=== PATIENT | female | born 1970 | race Hispanic/Latino ===

== ENCOUNTER 2024-06-22 20:25 | Emergency (ER) | payer BC ==
--- OUTSIDE RECORDS SUMMARY | 2024-06-22 20:32 | XMS REPORT | Continuity of Care Document ---
Author Name Unknown Address [address] [facility] [place] [address] Organization [facility] [place] Address [address] 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 Name Role Phone Pcp, Patient Does Not Have A Primary Care Physic aracely Chanelle Ortiz MD Attending Clinician [phone] CHANELLE ORTIZ Attending Clinician UnavailABELINO Chase Attending Clinician Unavailable Abelino Enciso PA-C Attending Clinician [phone] Doctor Unassigned, [place] Attending Clinician U WEN Rivero Attending Clinician Unavailable MARGARITA TOLLIVER Attending Clinician UnavailJADON Mayberry Attending Clinician Unavailable Jadon Quintero Attending Clinician [phone] Jose Carlos Melo Attending Clinician [phone] JOSE CARLOS BENAVIDES Attending Clinician Unavailable EBEN MAHER Attending Clinician Unavailable CHANELLE ORTIZ Admitting Clinician UnavailJADON Davalos Admitting Clinician Unavailable JOSE CARLOS BENAVIDES Admitting Clinician Unavailable Payers Payer Name Policy Type Policy Number Effective Date Expirati on Date Source [employer] [id number] 2022 00:00:00 Problems Condition Name Condition Details Condition Category Status Onset Date Resolution Date Last Treatment Date Treating Clinician Comments Source No known active problems No known active problems Disease [facility] Allergies, Adverse Reactions, Alerts Allergy Name Allergy Type Status Severity Reaction(s) Onset Date Inactive Date Treating Clinician Comments Source Adhesive Bandages , (Not Checked) Propensi ty to adverse reaction to drug Active 3-14 00:00: 00 Stuart Gutierrez Adhesive Bandages Propensi ty to adverse reaction to drug Active 9-15 00:00: 00 Stuart Gutierrez SILICONE S DRUG INGREDI Active High Hives 1-09 00:00: [address] [facility] Silicone s Drug Allergy Active Rash 03-05 00:00: [address] [facility] NO KNOWN ALLERGIE S Drug Class Active Univers [facility] Social History Social Habit Start Date Stop Date Quantity Comments Source [facility]2 (event) 2021-12-25 00:00:00 2022-01-04 18:04:[address] [facility] Sex Assigned At 1970 00:00:00 1970 00:00:[address] [facility] Smoking Status Start Date Stop Date Source Tobacco smoking consumption unknown [facility] Medications Ordered Medication Name Filled Medication Name Start Date Stop Date Current Medication? Ordering Clinician Indication Dosage Frequency Signature (SIG) Comments Components Source scopolamine 1 mg over 3 days transdermal patch - 00:00: 00 Yes 1mg over 3 days Stuart Gutierrez butalbital- acetaminoph en-caffeine 50 mg-300 mg-40 mg capsule - 00:00: 00 Yes 12mg Stuart Gutierrez methocarbam ol 750 mg tablet - 00:00: 00 Yes 2mg Stuart Gutierrez tizanidine 4 mg tablet - 00:00: 00 Yes 1mg Stuart Gutierrez losartan 100 mg tablet 2- 00:00: 00 Yes 1mg Stuart Gutierrez levothyroxi ne 75 mcg tablet - 00:00: 00 Yes 1mcg Stuart Gutierrez gabapentin 300 mg capsule 2-20 00:00: 00 Yes 1mg Stuart Gutierrez methocarbam ol 750 mg tablet 1-03 00:00: 00 Yes 2mg Stuart Gutierrez tizanidine 4 mg tablet 2023-02-19 00:00: 00 Yes 1mg Stuart Gutierrez ondansetron 4 mg disintegrat ing tablet 2023-02-18 00:00: 00 Yes 1mg Stuart Gutierrez methocarbam ol 750 mg tablet 2023-02-15 00:00: 00 Yes 2mg Stuart Gutierrez Flonase Allergy Relief 50 mcg/actuati on nasal spray,suspe nsion 2023-02 0- 00:00: 00 Yes mcg/act uation Stuart Gutierrez Zyrtec 10 mg tablet 2023-02 0-11 00:00: 00 Yes 1mg Stuart Gutierrez losartan 100 mg tablet - 00:00: 00 Yes 1mg Stuart Gutierrez atorvastati n 40 mg tablet - 00:00: 00 Yes 1mg Stuart Gutierrez tizanidine 4 mg tablet - 00:00: 00 Yes 1mg Stuart Gutierrez levothyroxi ne 75 mcg tablet - 00:00: 00 Yes 1mcg Stuart Gutierrez gabapentin 300 mg capsule - 00:00: 00 Yes 1mg Stuart Gutierrez albuterol sulfate HFA 90 mcg/actuati on aerosol inhaler - 00:00: 00 Yes 12mcg/a ctuatio n Stuart Gutierrez prednisone 50 mg tablet - 00:00: 00 Yes 1mg Stuart Gutierrez azithromyci n 500 mg tablet - 00:00: 00 Yes 1mg Stuart Gutierrez Bromfed DM 2 mg-30 mg-10 mg/5 mL oral syrup -17 00:00: 00 Yes 20mg/5 mL Stuart Gutierrez ibuprofen 800 mg tablet 7- 00:00: 00 Yes 1mg Stuart Gutierrez tizanidine 4 mg tablet 7- 00:00: 00 Yes 1mg Stuart Gutierrez losartan 100 mg tablet -14 00:00: 00 Yes 1mg Stuart Gutierrez atorvastati n 40 mg tablet -14 00:00: 00 Yes 1mg Stuart Gutierrez levothyroxi ne 75 mcg tablet 05-08 00:00: 00 Yes 1mcg Stuart Gutierrez UNITHROID 75 MCG 14 00:00: 00 Yes Stuart Gutierrez OZEMPIC 1 MG/DOSE (4 MG/3 ML) 05-08 00:00: 00 Yes 1 Stuart Gutierrez ketorolac (TORADOL) injection 30 mg 04-07 04:00: 00 04-07 03:02 :00 No 30mg 30 mg, Slow IV Push, ONCE, 1 dose, On 04/06/23 at 2200, [facility] meclizine (TRAVEL-EAS E (MECLIZINE) ) tablet 25 mg 04-07 03:00: 00 04-07 03:02 :00 No 25mg 25 mg, Oral, ONCE, 1 dose, On 04/06/23 at 2100, [facility] methocarbam oL (ROBAXIN) injection 1,000 mg 04-07 02:47: 00 04-07 03:08 :00 No 1000mg 1,000 mg, Slow IV Push, Administer over 3-5 Minutes, ONCE, 1 dose, On 04/06/23 at 2100, [facility] ondansetron (ZOFRAN (PF)) injection 4 mg 04-07 02:15: 00 04-07 02:21 :00 No 4mg 4 mg, Slow IV Push, ONCE, 1 dose, On 04/06/23 at 2015, [facility] iopamidol (ISOVUE 370-500 mL) injection 90 mL 04-07 01:45: 00 04-07 02:00 :00 No [id number] 90mL 90 mL, Intravenou s, ONCE, 1 dose, On 04/06/23 at 2000, [facility] acetaminoph en (TYLENOL) tablet 650 mg 04-07 00:30: 00 04-07 00:30 :00 No 650mg 650 mg, Oral, ONCE, 1 dose, On 04/06/23 at 1830, [facility] NaCl 0.9% (NS) bolus infusion 1,000 mL 04-07 00:30: 00 04-07 03:06 :00 No 1000mL at 999 mL/hr, 1,000 mL, IV Infusion, ONCE, 1 dose, On 04/06/23 at 1830, [facility] meclizine (TRAVEL-EAS E (MECLIZINE) ) tablet 25 mg 04-06 23:45: 00 04-07 00:12 :00 No 25mg 25 mg, Oral, ONCE, 1 dose, On 04/06/23 at 1745, [facility] meclizine 25 mg tablet 04-06 00:00: 00 Yes [id number] 25mg Take 1 tablet by mouth every 6 (six) hours. [facility] methocarbam oL 500 mg tablet 04-06 00:00: 00 Yes [id number] 500mg Take 1 tablet by mouth 4 (four) times daily as needed for Pain (scale 7-10). [facility] METHOCARBAM OL 500 MG 04-06 00:00: 00 07-01 00:00 :00 Lisette Gutierrez TAKE 1 TABLET BY MOUTH EVERY 6 HOURS 04-06 00:00: 00 07-01 00:00 :00 No Stuart Gutierrez INJECT 1 MG SUBCUTANEOU SLY WEEKLY - 00:00: 00 07-01 00:00 :00 No 43 Stuart Gutierrez dexamethaso ne sod phos PF injection 10 mg 03-05 02:30: 00 03-05 02:32 :00 No 10mg 10 mg, Intramuscu lar, ONCE, 1 dose, On 03/04/23 at 2030, 1 mL [facility] methylPREDN ISolone (MEDROL, LAUREN,) 4 mg tablets -08 00:00: 00 Yes [id number] Take by mouth SEE-INSTRU CTIONS. follow package directions [facility] bromphenira mine-pseudo ephedrine-D M (BROMFED DM) 2-30-10 mg/5 mL syrup 03-04 00:00: 00 03-15 05:59 :00 No [id number] 10mL Take 10 mL by mouth 4 (four) times daily as needed for Congestion /Allergies for up to 10 days. [facility] INJECT 0.25 MG SUBCUTANEOU SLY WEEKLY, INCREASE TO 0.5 MG SUBCUTANEOU SLY WEEKLY AFTER 2 WEEKS 2022-02 2 00:00: 00 07-01 00:00 :00 No 23 Stuart Gutierrez INJECT 0.25 MG SUBCUTANEOU SLY WEEKLY, INCREASE TO 0.5 MG SUBCUTANEOU SLY WEEKLY AFTER 4 WEEKS 2022-02 00:00: 00 07-01 00:00 :00 No 23 Stuart Jamel Gutierrez TAKE 1 TABLET TWICE DAILY WITH FOOD. 2022-02 00:00: 00 07-01 00:00 :00 No [id number] Stuart Gutierrez TAKE 1 CAPS PO QHS X 7 DAYS AND INCREASE TO 1 CAP PO BID IF TOLERATED. 2022-02 00:00: 00 07-01 00:00 :00 No 300 Stuart Gutierrez TAKE 1 TABLET DAILY. 11-21 00:00: 00 07-01 00:00 :00 No 100 Stuart Gutierrez TAKE 1 TABLET AT BEDTIME. 11-21 00:00: 00 07-01 00:00 :00 No 40 Stuart Gutierrez TAKE 1 TABLET EVERY MORNING. 11-21 00:00: 00 07-01 00:00 :00 No 75 Stuart Jamel Gutierrez OZEMPIC 0.25-0.5 MG/DOSE PEN 11-12 00:00: 00 07-01 00:00 :00 No [id number] Stuart Jamel Matt INJECT 0.25 MG SUBCUTANEOU SLY WEEKLY, INCREASE TO 0.5 MG SUBCUTANEOU SLY WEEKLY AFTER 4 WEEKS 11-09 00:00: 00 07-01 00:00 :00 No 23 Stuart Gutierrez metformin ER 500 mg 24 hr tablet 03-12 00:00: 00 Yes 500mg Take 1 tablet by mouth before evening meal. [facility] atorvastati n 40 mg tablet 03-12 00:00: 00 Yes 40mg Take 1 tablet by mouth in the morning. [facility] losartan 100 mg tablet 03-05 00:00: 00 Yes 100mg Take 1 tablet by mouth in the morning. [facility] levothyroxi ne 75 mcg tablet 03-05 00:00: 00 Yes 75ug Take 1 tablet by mouth every morning. [facility] iopamidol (ISOVUE 370-500 mL) injection 75 mL 2021-02 03:15: 00 01-05 03:15 :00 No [id number] 75mL 75 mL, Intravenou s, ONCE, 1 dose, On Radha 01/04/22 at 2115, Routine [facility] TAKE 1 TABLET DAILY. 08-31 00:00: 00 Yes 100 Stuart Gutierrez levothyroxi ne 75 mcg tablet 2020-02 00:00: 00 Yes 1mcg Stuart Gutierrez albuterol 90 mcg/actuati on inhaler 2020-02 0 00:00: 00 Yes [id number] 2{puff} Inhale 2 Puffs every 6 (six) hours as needed for Wheezing or Shortness of Breath. [facility] citalopram 40 mg tablet 11-19 00:00: 00 Yes 1mg Stuart Gutierrez metformin 500 mg tablet 11-19 00:00: 00 Yes 1mg Stuart Gutierrez levothyroxi ne 75 mcg tablet 11-19 00:00: 00 Yes 1mcg Stuart Gutierrez ProAir HFA 90 mcg/actuati on aerosol inhaler 02-25 00:00: 00 Yes 12mcg/a ctuatio n Stuart Gutierrez losartan 100 mg tablet 02-25 00:00: 00 Yes 1mg Stuart Gutierrez atorvastati n 40 mg tablet 02-25 00:00: 00 Yes 1mg Stuart Gutierrez buspirone 10 mg tablet 02-25 00:00: 00 Yes 3mg Stuart Gutierrez bromocripti ne 2.5 mg tablet 02-25 00:00: 00 Yes 1mg Stuart Gutierrez mirtazapine 15 mg tablet 02-25 00:00: 00 Yes 1mg Stuart Gutierrez levothyroxi ne 75 mcg tablet 02-25 00:00: 00 Yes 1mcg Stuart Gutierrez Immunizations Ordered Immunization Name Filled Immunization Name Date Status Comments Source Influenza, injectable, Madin Bruno Canine Kidney, preservative-free, quadrivalent Influenza, injectable, Madin Beverly Canine Kidney, preservative-free, quadrivalent 2024-02-28 00:00:00 Completed Stuart Gutierrez SHINGRIX VACCINE SHINGRIX VACCINE 2024-02-28 00:00:00 Completed Stuart Gutierrez Influenza, injectable, Madin Bruno Canine Kidney, preservative-free, quadrivalent Influenza, injectable, Madin Bruno Canine Kidney, preservative-free, quadrivalent 2023-04-11 00:00:00 Completed Stuart Gutierrez Td (adult) preservative Td (adult) preservative 2023-04-11 00:00:00 Completed Stuart Gutierrez Vital Signs Vital Name Observation Time Observation Value Comments S ource Systolic blood pressure 2023-04-07 04:00:00 131 mm[Hg] [facility] Diastolic blood pressure 2023-04-07 04:00:00 71 mm[Hg] [facility] Heart rate 2023-04-07 04:00:00 70 /min [facility] Respiratory rate 2023-04-07 04:00:00 13 /min [facility] Oxygen saturation in Arterial blood by Pulse oximetry 2023-04-07 04:00:00 97 /min [facility] Body temperature 2023-04-06 23:27:[address] [facility] Body height 2023-04-06 23:07:00 167.6 cm [facility] Body weight 2023-04-06 23:07:00 94.348 kg [facility] BMI 2023-04-06 23:07:00 33.57 kg/m2 [facility] Systolic blood pressure 2023-03-05 02:05:00 137 mm[Hg] [facility] Diastolic blood pressure 2023-03-05 02:05:00 78 mm[Hg] [facility] Heart rate 2023-03-05 02:05:00 85 /min [facility] Body temperature 2023-03-05 02:05:[address] [facility] Respiratory rate 2023-03-05 02:05:00 18 /min [facility] Body height 2023-03-05 02:05:00 167.6 cm [facility] Body weight 2023-03-05 02:05:00 96.163 kg [facility] BMI 2023-03-05 02:05:00 34.22 kg/m2 [facility] Oxygen saturation in Arterial blood by Pulse oximetry 2023-03-05 02:05:00 99 /min [facility] Systolic blood pressure 2022-01-05 03:02:00 124 mm[Hg] [facility] Diastolic blood pressure 2022-01-05 03:02:00 77 mm[Hg] [facility] Heart rate 2022-01-05 03:02:00 59 /min [facility] Respiratory rate 2022-01-05 03:02:00 18 /min [facility] Oxygen saturation in Arterial blood by Pulse oximetry 2022-01-05 03:02:00 97 /min [facility] Body temperature 2022-01-05 00:05:[address] [facility] Body height 2022-01-05 00:05:00 167.6 cm [facility] Body weight 2022-01-05 00:05:00 86.183 kg [facility] BMI 2022-01-05 00:05:00 30.67 kg/m2 [facility] Systolic blood pressure 2020-12-01 01:35:00 131 mm[Hg] [facility] Diastolic blood pressure 2020-12-01 01:35:00 70 mm[Hg] [facility] Heart rate 2020-12-01 01:35:00 70 /min [facility] Body temperature 2020-12-01 01:35:[address] [facility] Respiratory rate 2020-12-01 01:35:00 16 /min [facility] Body height 2020-12-01 01:35:00 167.6 cm [facility] Body weight 2020-12-01 01:35:00 81.647 kg [facility] BMI 2020-12-01 01:35:00 29.05 kg/m2 [facility] Oxygen saturation in Arterial blood by Pulse oximetry 2020-12-01 01:35:00 98 /min [facility] BP Systolic 2024-04-20 09:31:00 120 mm[Hg] Step hen F Matt BP Diastolic 2024-04-20 09:31:00 63 mm[Hg] Armand phen F Matt Weight Measured 2024-04-20 09:31:00 201.80 pounds Stuartshelly Gutierrez Height Measured 2024-04-20 09:31:00 66.14 inches Stuart F Matt Body Temperature 2024-04-20 09:31:00 97.60 degrees Stuart F Matt Heart Rate 2024-04-20 09:31:00 74.00 /min Yasmine en F Matt Respiratory Rate 2024-04-20 09:31:00 18.00 /min Stuart F Matt BP Systolic 2024-04-02 16:17:00 150 mm[Hg] Step hen F Matt BP Diastolic 2024-04-02 16:17:00 100 mm[Hg] Armand phen F Matt Weight Measured 2024-04-02 16:17:00 205.40 pounds Stuart Jamel Gutierrez Height Measured 2024-04-02 16:17:00 66.14 inches Stuart F Matt Body Temperature 2024-04-02 16:17:00 98.10 degrees Stuart F Matt Heart Rate 2024-04-02 16:17:00 71.00 /min Yasmine en F Matt Respiratory Rate 2024-04-02 16:17:00 18.00 /min Stuart F Matt BP Systolic 2024-02-28 14:38:00 152 mm[Hg] Step hen F Matt BP Diastolic 2024-02-28 14:38:00 90 mm[Hg] Armand phen F Matt Weight Measured 2024-02-28 14:38:00 212.40 pounds Stuart F Matt Height Measured 2024-02-28 14:38:00 66.14 inches Stuart F Matt Body Temperature 2024-02-28 14:38:00 98.40 degrees Stuart F Matt Heart Rate 2024-02-28 14:38:00 67.00 /min Yasmine en F Matt Respiratory Rate 2024-02-28 14:38:00 19.00 /min Stuart F Matt BP Systolic 2024-01-13 14:48:00 151 mm[Hg] Step hen F Matt BP Diastolic 2024-01-13 14:48:00 93 mm[Hg] Armand phen F Matt Weight Measured 2024-01-13 14:48:00 209.00 pounds Stuart F Matt Height Measured 2024-01-13 14:48:00 66.14 inches Stuart F Matt Body Temperature 2024-01-13 14:48:00 97.70 degrees Stuart F Matt Heart Rate 2024-01-13 14:48:00 74.00 /min Yasmine en F Matt Respiratory Rate 2024-01-13 14:48:00 18.00 /min Stuart F Matt BP Systolic 2024-01-11 09:57:00 Step hen F Matt BP Diastolic 2024-01-11 09:57:00 Armand phen F Matt Weight Measured 2024-01-11 09:57:00 Stuart F Matt Height Measured 2024-01-11 09:57:00 Stuart F Matt Body Temperature 2024-01-11 09:57:00 Stuart F Matt Heart Rate 2024-01-11 09:57:00 Yasmine en F Matt Respiratory Rate 2024-01-11 09:57:00 Stuart F Matt BP Systolic 2024-01-10 10:49:00 148 mm[Hg] Step hen F Matt BP Diastolic 2024-01-10 10:49:00 99 mm[Hg] Armand phen F Matt Weight Measured 2024-01-10 10:49:00 208.40 pounds Stuart F Matt Height Measured 2024-01-10 10:49:00 66.14 inches Stuart F Matt Body Temperature 2024-01-10 10:49:00 Stuart F Matt Heart Rate 2024-01-10 10:49:00 69.00 /min Yasmine en F Matt Respiratory Rate 2024-01-10 10:49:00 18.00 /min Stuart F Matt BP Systolic 2023-12-06 10:02:00 158 mm[Hg] Step hen F Matt BP Diastolic 2023-12-06 10:02:00 95 mm[Hg] Armand phen F Matt Weight Measured 2023-12-06 10:02:00 213.36 pounds Stuart F Matt Height Measured 2023-12-06 10:02:00 66.14 inches Stuart F Matt Body Temperature 2023-12-06 10:02:00 98.20 degrees Stuart F Matt Heart Rate 2023-12-06 10:02:00 79.00 /min Yasmine en F Matt Respiratory Rate 2023-12-06 10:02:00 23.00 /min Stuart F Matt BP Systolic 2023-11-08 10:43:00 154 mm[Hg] Step hen F Matt BP Diastolic 2023-11-08 10:43:00 93 mm[Hg] Armand phen F Matt Weight Measured 2023-11-08 10:43:00 214.40 pounds Stuart F Matt Height Measured 2023-11-08 10:43:00 66.14 inches Stuart F Matt Body Temperature 2023-11-08 10:43:00 98.20 degrees Stuart F Matt Heart Rate 2023-11-08 10:43:00 78.00 /min Yasmine en F Matt Respiratory Rate 2023-11-08 10:43:00 18.00 /min Stuart F Matt BP Systolic 2023-11-08 10:08:00 154 mm[Hg] Step hen F Matt BP Diastolic 2023-11-08 10:08:00 93 mm[Hg] Armand phen F Matt Weight Measured 2023-11-08 10:08:00 214.40 pounds Stuart F Matt Height Measured 2023-11-08 10:08:00 66.14 inches Stuart F Matt Body Temperature 2023-11-08 10:08:00 98.20 degrees Stuart F Matt Heart Rate 2023-11-08 10:08:00 78.00 /min Yasmine en F Matt Respiratory Rate 2023-11-08 10:08:00 18.00 /min Stuart F Matt BP Systolic 2023-10-12 13:39:00 140 mm[Hg] Step hen F Matt BP Diastolic 2023-10-12 13:39:00 98 mm[Hg] Armand phen F Matt Weight Measured 2023-10-12 13:39:00 214.00 pounds Stuart F Matt Height Measured 2023-10-12 13:39:00 66.14 inches Stuart F Matt Body Temperature 2023-10-12 13:39:00 97.30 degrees Stuart F Matt Heart Rate 2023-10-12 13:39:00 74.00 /min Yasmine en F Matt Respiratory Rate 2023-10-12 13:39:00 Stuart F Matt BP Systolic 2023-08-26 10:22:00 145 mm[Hg] Step hen F Matt BP Diastolic 2023-08-26 10:22:00 87 mm[Hg] Armand phen F Matt Weight Measured 2023-08-26 10:22:00 216.00 pounds Stuart F Matt Height Measured 2023-08-26 10:22:00 66.14 inches Stuart F Matt Body Temperature 2023-08-26 10:22:00 98.30 degrees Stuart F Matt Heart Rate 2023-08-26 10:22:00 83.00 /min Yasmine en F Matt Respiratory Rate 2023-08-26 10:22:00 Stuart F Matt BP Systolic 2023-05-09 13:55:00 139 mm[Hg] Step hen F Matt BP Diastolic 2023-05-09 13:55:00 103 mm[Hg] Armand phen F Matt Weight Measured 2023-05-09 13:55:00 210.80 pounds Stuart F Matt Height Measured 2023-05-09 13:55:00 66.14 inches Stuart F Matt Body Temperature 2023-05-09 13:55:00 98.40 degrees Stuart F Matt Heart Rate 2023-05-09 13:55:00 86.00 /min Yasmine en F Matt Respiratory Rate 2023-05-09 13:55:00 Stuart F Matt BP Systolic 2023-04-11 13:23:00 130 mm[Hg] Step hen F Matt BP Diastolic 2023-04-11 13:23:00 68 mm[Hg] Armand phen F Matt Weight Measured 2023-04-11 13:23:00 210.40 pounds Stuart F Matt Height Measured 2023-04-11 13:23:00 66.14 inches Stuart F Matt Body Temperature 2023-04-11 13:23:00 97.60 degrees Stuart F Matt Heart Rate 2023-04-11 13:23:00 80.00 /min Yasmine en F Matt Respiratory Rate 2023-04-11 13:23:00 Stuart F Matt BP Systolic 2023-04-08 15:44:00 142 mm[Hg] Step hen F Matt BP Diastolic 2023-04-08 15:44:00 60 mm[Hg] Armand phen F Matt Weight Measured 2023-04-08 15:44:00 209.00 pounds Stuart F Matt Height Measured 2023-04-08 15:44:00 66.14 inches Stuart F Matt Body Temperature 2023-04-08 15:44:00 98.50 degrees Stuart F Matt Heart Rate 2023-04-08 15:44:00 82.00 /min Yasmine en F Matt Respiratory Rate 2023-04-08 15:44:00 Stuart F Matt BP Systolic 2023-04-05 15:11:00 149 mm[Hg] Step hen F Matt BP Diastolic 2023-04-05 15:11:00 98 mm[Hg] Armand phen F Matt Weight Measured 2023-04-05 15:11:00 206.80 pounds Stuart F Matt Height Measured 2023-04-05 15:11:00 66.14 inches Stuart F Matt Body Temperature 2023-04-05 15:11:00 Stuart F Matt Heart Rate 2023-04-05 15:11:00 74.00 /min Yasmine en F Matt Respiratory Rate 2023-04-05 15:11:00 Stuart F Matt BP Systolic 2023-02-22 11:09:00 134 mm[Hg] Step hen F Matt BP Diastolic 2023-02-22 11:09:00 83 mm[Hg] Armand phen F Matt Weight Measured 2023-02-22 11:09:00 212.80 pounds Stuart F Matt Height Measured 2023-02-22 11:09:00 66.14 inches Stuart F Matt Body Temperature 2023-02-22 11:09:00 98.10 degrees Stuart F Matt Heart Rate 2023-02-22 11:09:00 72.00 /min Yasmine en F Matt Respiratory Rate 2023-02-22 11:09:00 Stuart F Matt BP Systolic 2022-12-31 10:16:00 141 mm[Hg] Step hen F Matt BP Diastolic 2022-12-31 10:16:00 82 mm[Hg] Armand phen F Matt Weight Measured 2022-12-31 10:16:00 205.20 pounds Stuart F Matt Height Measured 2022-12-31 10:16:00 66.14 inches Stuart F Matt Body Temperature 2022-12-31 10:16:00 98.40 degrees Stuart F Matt Heart Rate 2022-12-31 10:16:00 80.00 /min Yasmine en F Matt Respiratory Rate 2022-12-31 10:16:00 Stuart F Matt BP Systolic 2022-11-12 08:17:00 153 mm[Hg] Step hen F Matt BP Diastolic 2022-11-12 08:17:00 90 mm[Hg] Armand phen F Matt Weight Measured 2022-11-12 08:17:00 200.60 pounds Stuart F Matt Height Measured 2022-11-12 08:17:00 66.14 inches Stuart F Matt Body Temperature 2022-11-12 08:17:00 Stuart F Matt Heart Rate 2022-11-12 08:17:00 82.00 /min Yasmine en F Matt Respiratory Rate 2022-11-12 08:17:00 Stuart F Matt BP Systolic 2022-11-09 14:01:00 137 mm[Hg] Step hen F Matt BP Diastolic 2022-11-09 14:01:00 93 mm[Hg] Armand phen F Matt Weight Measured 2022-11-09 14:01:00 200.20 pounds Stuart F Matt Height Measured 2022-11-09 14:01:00 66.14 inches Stuart F Matt Body Temperature 2022-11-09 14:01:00 98.40 degrees Stuart F Matt Heart Rate 2022-11-09 14:01:00 101.00 /min Step hen F Matt Respiratory Rate 2022-11-09 14:01:00 18.00 /min Stuart Gutierrez Procedures Procedure Date / Time Performed Performing Clinician Source XR CHEST 2 VW 2023-04-07 00:08:00 Chanelle Ortiz [facility] TROPONIN I 2023-04-06 23:54:[address] [facility] COMP. METABOLIC PANEL ([id number]) 2023-04-06 23:54:[address] [facility] CBC WITH DIFF 2023-04-06 23:54:00 Chanelle Ortiz [facility] PROTHROMBIN TIME / INR 2023-04-06 23:54:[address] [facility] ACTIVATED PARTIAL THRMPLAS SANDRA 2023-04-06 23:54:[address] [facility] URINALYSIS 2023-04-06 23:54:[address] [facility] N-TERMINAL PRO-BNP 2023-04-06 23:54:00 Emerita Ortiz [email or web address] [facility] ASSIGNMENT OF BENEFITS 2023-03-05 02:50:30 Docto r Unassigned, [place] [facility] RAPID STREP SCREEN FOR GROUP A 2023-03-05 02:11:[address] [facility] RAPID INFLUENZA A/B 2023-03-05 02:11:[address] [facility] COVID-19 (ID NOW RAPID TESTING) 2023-03-05 02:11:[address] [facility] NOTICE OF PRIVACY PRACTICES 2023-03-05 02:01:05 Doctor Unassigned, [place] [facility] CONSENT/REFUSAL FOR DIAGNOSIS AND TREATMENT 2023-03-05 01:59:51 Doctor Unassigned, [place] [facility] CT THORAX W CONTRAST 2022-01-05 02:16:[address] [facility] POCT TEST 2022-01-05 02:00:[address] [facility] COMP. METABOLIC PANEL ([id number]) 2022-01-05 01:58:[address] [facility] [facility] WITH DIFF 2022-01-05 01:58:00 Jadon Guzman [facility] CONSENT/REFUSAL FOR DIAGNOSIS AND TREATMENT 2022-01-04 23:52:52 Doctor Unassigned, [place] [facility] XR CHEST 2 VW 2020-12-01 02:28:01 Jose Carlos Benavides [facility] NOTICE OF PRIVACY PRACTICES 2020-12-01 01:41:29 Doctor Unassigned, [place] [facility] CONSENT/REFUSAL FOR DIAGNOSIS AND TREATMENT 2020-12-01 01:41:09 Doctor Unassigned, [place] [facility] Encounters Start Date/Time End Date/Time Encounter Type Admission Type Attending [facility] Care Department Encounter ID Source 2024-04-20 09:23:50 2024-04-20 09:23:50 Outpatient SFA [facility] [id number] Stuart Gutierrez 2024-04-20 00:00:00 2024-04-20 00:00:00 Outpatient Visit [facility] [id number] Stuart Gutierrez 2024-04-02 16:06:14 2024-04-02 16:06:14 Outpatient [facility] [id number] Stuart Gutierrez 2024-04-02 00:00:00 2024-04-02 00:00:00 Outpatient Visit [facility] [id number] Stuart Gutierrez 2024-02-28 14:32:57 2024-02-28 14:32:57 Outpatient [facility] [id number] Stuart Gutierrez 2024-02-28 00:00:00 2024-02-28 00:00:00 Outpatient Visit [facility] [id number] Stuart Gutierrez 2024-01-13 14:43:10 2024-01-13 14:43:10 Outpatient [facility] [id number] Stuart Gutierrez 2024-01-13 00:00:00 2024-01-13 00:00:00 Outpatient Visit [facility] [id number] Stuart Gutierrez 2024-01-11 09:57:09 2024-01-11 09:57:09 Outpatient SFA [facility] [id number] Stuart Gutierrez 2024-01-11 00:00:00 2024-01-11 00:00:00 Outpatient Visit [facility] [id number] Stuart Gutierrez 2024-01-10 10:45:02 2024-01-10 10:45:02 Outpatient SFA [facility] [id number] Stuart Gutierrez 2024-01-10 00:00:00 2024-01-10 00:00:00 Outpatient Visit [facility] [id number] Stuart Gutierrez 2023-12-06 09:56:50 2023-12-06 09:56:50 Outpatient SFA [facility] [id number] Stuart Gutierrez 2023-12-06 00:00:00 2023-12-06 00:00:00 Outpatient Visit [facility] [id number] Stuart Gutierrez 2023-11-08 10:01:15 2023-11-08 10:01:15 Outpatient SFA [facility] [id number] Stuart Gutierrez 2023-11-08 00:00:00 2023-11-08 00:00:00 Outpatient Visit [facility] [id number] Stuart Gutierrez 2023-10-12 13:38:27 2023-10-12 13:38:27 Outpatient SFA [facility] [id number] Stuart Gutierrez 2023-10-12 00:00:00 2023-10-12 00:00:00 Outpatient Visit [facility] [id number] Stuart Gutierrez 2023-08-30 11:39:02 2023-08-30 11:39:02 Outpatient [facility] [id number] [id number] Stuart Gutierrez 2023-08-26 10:17:50 2023-08-26 10:17:50 Outpatient [facility] [id number] Staurt Gutierrez 2023-05-09 13:50:28 2023-05-09 13:50:28 Outpatient [facility] [id number] Stuart Gutierrez 2023-04-11 13:19:25 2023-04-11 13:19:25 Outpatient [facility] [place] [id number] Stuart Gutierrez 2023-04-08 15:42:00 2023-04-08 15:42:00 Outpatient [place] [id number] Stuart Gutierrez 2023-04-06 17:04:00 2023-04-06 22:18:00 Emergency SudhaKari littleda [facility] [id number] [id number] [id number] [id number] [facility] 2023-04-06 17:04:00 2023-04-06 22:18:00 Emergency X CHANELLE ORTIZ [facility] ERT [id number] [facility] 2023-04-05 15:03:21 2023-04-05 15:03:21 Outpatient [facility] [id number] Stuart Gutierrez 2023-03-04 20:11:00 2023-03-04 20:58:00 Emergency X ABELINO ENCISO [facility] ERT [id number] [facility] 2023-03-04 20:11:00 2023-03-04 20:58:00 Emergency Abelino Enciso [facility] [id number] [id number] [id number] [id number] [facility] 2023-03-04 00:00:00 2023-03-04 00:00:00 Orders Only Doctor Unassigned, [place] [facility] [id number] [id number] [id number] [id number] [facility] 2023-02-22 11:03:07 2023-02-22 11:03:07 Outpatient [facility] [id number] Stuart Gutierrez 2023-01-05 15:04:46 2023-01-05 15:04:46 Outpatient [facility] [id number] Stuart Gutierrez 2022-12-31 10:11:34 2022-12-31 10:11:34 Outpatient [facility] [id number] Stuart Gutierrez 2022-11-12 08:06:13 2022-11-12 08:06:13 Outpatient [facility] [id number] Stuart Gutierrez 2022-11-09 13:58:11 2022-11-09 13:58:11 Outpatient [facility] [id number] Stuart Gutierrez 2022-06-13 09:00:00 2022-06-13 09:00:00 Outpatient R WEN [facility]CON [facility] [id number] [facility] 2022-03-07 08:30:00 2022-03-07 08:30:[address] [facility] [id number] [facility] 2022-01-04 18:06:00 2022-01-04 22:26:00 Emergency JADON BERG [facility] ERT [id number] [facility] 2022-01-04 18:06:00 2022-01-04 22:26:00 Emergency Jadon Guzman [facility] [id number] 350.1.13.10 4.2.7.2.686 [id number] [facility] 2020-11-30 20:41:00 2020-11-30 22:36:00 Emergency BenavidesJasper langkathy Magallon [facility] [id number] 350.1.13.10 [id number] [id number] [facility] 2020-11-30 20:41:00 2020-11-30 22:36:00 Emergency X JOSE CARLOS BENAVIDES [facility] ERT [id number] [facility] 2020-11-30 20:41:00 2020-11-30 20:41:00 Emergency X JOSE CARLOS BENAVIDES [facility] ERT [id number] [facility] 2020-05-18 10:20:00 2020-05-18 10:20:[address] [facility] [id number] [facility] Results Test Description Test Time Test Comments Results Result Co mments Source Stuart Mccullough AustinHIV 1/2 4TH GEN, RFLX [id number] 00:00:00* Test Item Value Reference Range Interpretation Comme nts HIV 1/2 4TH GEN, RFLX CONF ( test code = 3514) NON-REACTIVE Stuart GutierrezLIPID [id number] 00:00:00* Test Item Value Reference Range Interpretation Comme nts CHOLESTEROL (test code = 2210) 204 MG/DL TRIGLYCERIDES (test code = 2232) 169 MG/DL HDL CHOLESTEROL (test code = 2220) 51 MG/DL CALC LDL CHOL (test code = 2237) 124 MG/DL RISK RATIO LDL/HDL (test cod e = 2238) 2.43 RATIO Stuart GutierrezHIV 1/2 4TH GEN, RFLX [id number] 00:00:00* Test Item Value Reference Range Interpretation Comme nts HIV 1/2 4TH GEN, RFLX CONF ( test code = 3514) NON-REACTIVE Stuart GutierrezLIPID [id number] 00:00:00* Test Item Value Reference Range Interpretation Comme nts CHOLESTEROL (test code = 2210) 204 MG/DL TRIGLYCERIDES (test code = 2232) 169 MG/DL HDL CHOLESTEROL (test code = 2220) 51 MG/DL CALC LDL CHOL (test code = 2237) 124 MG/DL RISK RATIO LDL/HDL (test cod e = 2238) 2.43 RATIO Stuart GutierrezHIV 1/2 4TH GEN, RFLX [id number] 00:00:00* Test Item Value Reference Range Interpretation Comme nts HIV 1/2 4TH GEN, RFLX CONF ( test code = 3514) NON-REACTIVE Stuart Costa (ANTI-NUCLEAR AB) WITH REFLEX [id number] 00:00:00* Test Item Value Reference Range Interpretation Comme nts ANTI-NUCLEAR ANTIBODIES (vinay t code = 3506) NEGATIVE YAZMIN PATTERN (REPORTED TITER) (test code = 16343) SEE BELOW HOMOGENEOUS (test code = 97877) NEGATIVE TITER SPECKLED (test code = 957132) NEGATIVE TITER DENSE FINE SPECKLED (test co de = 41646) NEGATIVE TITER CENTROMERE (test code = 721234) NEGATIVE TITER COARSE SPECKLED (test code = 554997) NEGATIVE TITER DISCRETE NUCLEAR DOTS (test code = 684285) NEGATIVE TITER NUCLEOLAR (test code = 373033) NEGATIVE TITER NUCLEAR MEMBRANE (test code = 200083) NEGATIVE TITER CYTO. RETICULAR (ANASTACIA) (test code = 877922) NEGATIVE COMMENTS (test code = 845957) NONE METHOD (test code = 41474) (NOTE) Stuart GutierrezYAZMIN (ANTI-NUCLEAR AB) WITH REFLEX [id number] 00:00:00* Test Item Value Reference Range Interpretation Comme nts ANTI-NUCLEAR ANTIBODIES (vinay t code = 3506) NEGATIVE YAZMIN PATTERN (REPORTED TITER) (test code = 11104) SEE BELOW HOMOGENEOUS (test code = 31166) NEGATIVE TITER SPECKLED (test code = 038099) NEGATIVE TITER DENSE FINE SPECKLED (test co de = 51092) NEGATIVE TITER CENTROMERE (test code = 093073) NEGATIVE TITER COARSE SPECKLED (test code = 686083) NEGATIVE TITER DISCRETE NUCLEAR DOTS (test code = 169204) NEGATIVE TITER NUCLEOLAR (test code = 290531) NEGATIVE TITER NUCLEAR MEMBRANE (test code = 755717) NEGATIVE TITER CYTO. RETICULAR (ANASTACIA) (test code = 198697) NEGATIVE COMMENTS (test code = 807144) NONE METHOD (test code = 39790) (NOTE) Stuart Costa (ANTI-NUCLEAR AB) WITH REFLEX [id number] 00:00:00* Test Item Value Reference Range Interpretation Comme nts ANTI-NUCLEAR ANTIBODIES (vinay t code = 3506) NEGATIVE YAZMIN PATTERN (REPORTED TITER) (test code = 08970) SEE BELOW HOMOGENEOUS (test code = 46547) NEGATIVE TITER SPECKLED (test code = 316792) NEGATIVE TITER DENSE FINE SPECKLED (test co de = 52329) NEGATIVE TITER CENTROMERE (test code = 634568) NEGATIVE TITER COARSE SPECKLED (test code = 655700) NEGATIVE TITER DISCRETE NUCLEAR DOTS (test code = 913539) NEGATIVE TITER NUCLEOLAR (test code = 716790) NEGATIVE TITER NUCLEAR MEMBRANE (test code = 669878) NEGATIVE TITER CYTO. RETICULAR (ANASTACIA) (test code = 807372) NEGATIVE COMMENTS (test code = 053762) NONE METHOD (test code = 42700) (NOTE) Stuart GutierrezYAZMIN (ANTI-NUCLEAR AB) WITH REFLEX [id number] 00:00:00* Test Item Value Reference Range Interpretation Comme nts ANTI-NUCLEAR ANTIBODIES (vinay t code = 3506) NEGATIVE YAZMIN PATTERN (REPORTED TITER) (test code = 36441) SEE BELOW HOMOGENEOUS (test code = 95975) NEGATIVE TITER SPECKLED (test code = 148698) NEGATIVE TITER DENSE FINE SPECKLED (test co de = 13391) NEGATIVE TITER CENTROMERE (test code = 688996) NEGATIVE TITER COARSE SPECKLED (test code = 707804) NEGATIVE TITER DISCRETE NUCLEAR DOTS (test code = 722606) NEGATIVE TITER NUCLEOLAR (test code = 663228) NEGATIVE TITER NUCLEAR MEMBRANE (test code = 379358) NEGATIVE TITER CYTO. RETICULAR (ANATSACIA) (test code = 463687) NEGATIVE COMMENTS (test code = 190171) NONE METHOD (test code = 04429) (NOTE) Stuart Sandy, [id number] 00:00:00* Test Item Value Reference Range Interpretation Comme nts CK, TOTAL (test code = 2013) 674 U/L Stuart Mccullough MattCBC W/AUTO [id number] 00:00:00* Test Item Value Reference Range Interpretation Comme nts WBC (test code = 1001) 7.0 K/UL RBC (test code = 1002) 4.64 M/UL HEMOGLOBIN (test code = 1003) 13.3 G/DL HEMATOCRIT (test code = 1004) 39.8 % MCV (test code = 1005) 85.8 fL MCH (test code = 1006) 28.7 PG MCHC (test code = 1007) 33.4 G/DL RDW (test code = 1038) 13.2 % NEUTROPHILS (test code = 1008) 72.0 % LYMPHOCYTES (test code = 1010) 16.4 % MONOCYTES (test code = 1011) 7.0 % EOSINOPHILS (test code = 1012) 3.9 % BASOPHILS (test code = 1013) 0.4 % IMMATURE GRANULOCYTES (test code = 1036) 0.3 % NUCLEATED RBCS (test code = 1065) 0.0 /100WBC'S PLATELET COUNT (test code = 1015) 376 K/UL ABSOLUTE NEUTROPHILS (test c ode = 1066) 5.04 K/UL ABSOLUTE LYMPHOCYTES (test c ode = 1067) 1.15 K/UL ABSOLUTE MONOCYTES (test cod e = 1068) 0.49 K/UL ABSOLUTE EOSINOPHILS (test c ode = 1040) 0.27 K/UL ABSOLUTE BASOPHILS (test cod e = 1069) 0.03 K/UL ABS IMMATURE GRANULOCYTES (t est code = 1020) 0.02 K/UL ABS NUCLEATED RBCS (test cod e = 60732) 0.00 K/UL Stuart GutierrezSEDIMENTATION [id number] 00:00:00* Test Item Value Reference Range Interpretation Comme nts SEDIMENTATION RATE (test cod e = 1017) 10 MM/HOUR Stuart GutierrezHIGH SENSITIVITY [id number] 00:00:00* Test Item Value Reference Range Interpretation Comme nts HIGH SENSITIVITY CRP (test c ode = 22129) 1.5 MG/L Stuart GutierrezRHEUMATOID FACTOR, [id number] 00:00:00* Test Item Value Reference Range Interpretation Comme nts RHEUMATOID FACTOR, QUANT (te st code = 3502) <10 IU/ML Stuart GutierrezCK, [id number] 00:00:00* Test Item Value Reference Range Interpretation Comme nts CK, TOTAL (test code = 2013) 674 U/L Stuart GutierrezCBC W/AUTO [id number] 00:00:00* Test Item Value Reference Range Interpretation Comme nts WBC (test code = 1001) 7.0 K/UL RBC (test code = 1002) 4.64 M/UL HEMOGLOBIN (test code = 1003) 13.3 G/DL HEMATOCRIT (test code = 1004) 39.8 % MCV (test code = 1005) 85.8 fL MCH (test code = 1006) 28.7 PG MCHC (test code = 1007) 33.4 G/DL RDW (test code = 1038) 13.2 % NEUTROPHILS (test code = 1008) 72.0 % LYMPHOCYTES (test code = 1010) 16.4 % MONOCYTES (test code = 1011) 7.0 % EOSINOPHILS (test code = 1012) 3.9 % BASOPHILS (test code = 1013) 0.4 % IMMATURE GRANULOCYTES (test code = 1036) 0.3 % NUCLEATED RBCS (test code = 1065) 0.0 /100WBC'S PLATELET COUNT (test code = 1015) 376 K/UL ABSOLUTE NEUTROPHILS (test c ode = 1066) 5.04 K/UL ABSOLUTE LYMPHOCYTES (test c ode = 1067) 1.15 K/UL ABSOLUTE MONOCYTES (test cod e = 1068) 0.49 K/UL ABSOLUTE EOSINOPHILS (test c ode = 1040) 0.27 K/UL ABSOLUTE BASOPHILS (test cod e = 1069) 0.03 K/UL ABS IMMATURE GRANULOCYTES (t est code = 1020) 0.02 K/UL ABS NUCLEATED RBCS (test cod e = 81537) 0.00 K/UL Stuart GutierrezSEDIMENTATION [id number] 00:00:00* Test Item Value Reference Range Interpretation Comme nts SEDIMENTATION RATE (test cod e = 1017) 10 MM/HOUR Stuart GutierrezHIGH SENSITIVITY [id number] 00:00:00* Test Item Value Reference Range Interpretation Comme nts HIGH SENSITIVITY CRP (test c ode = 76584) 1.5 MG/L Stuart GutierrezRHEUMATOID FACTOR, [id number] 00:00:00* Test Item Value Reference Range Interpretation Comme nts RHEUMATOID FACTOR, QUANT (te st code = 3502) <10 IU/ML Stuart Mccullough MattCK, [id number] 00:00:00* Test Item Value Reference Range Interpretation Comme nts CK, TOTAL (test code = 2013) 674 U/L Stuart GutierrezCBC W/AUTO [id number] 00:00:00* Test Item Value Reference Range Interpretation Comme nts WBC (test code = 1001) 7.0 K/UL RBC (test code = 1002) 4.64 M/UL HEMOGLOBIN (test code = 1003) 13.3 G/DL HEMATOCRIT (test code = 1004) 39.8 % MCV (test code = 1005) 85.8 fL MCH (test code = 1006) 28.7 PG MCHC (test code = 1007) 33.4 G/DL RDW (test code = 1038) 13.2 % NEUTROPHILS (test code = 1008) 72.0 % LYMPHOCYTES (test code = 1010) 16.4 % MONOCYTES (test code = 1011) 7.0 % EOSINOPHILS (test code = 1012) 3.9 % BASOPHILS (test code = 1013) 0.4 % IMMATURE GRANULOCYTES (test code = 1036) 0.3 % NUCLEATED RBCS (test code = 1065) 0.0 /100WBC'S PLATELET COUNT (test code = 1015) 376 K/UL ABSOLUTE NEUTROPHILS (test c ode = 1066) 5.04 K/UL ABSOLUTE LYMPHOCYTES (test c ode = 1067) 1.15 K/UL ABSOLUTE MONOCYTES (test cod e = 1068) 0.49 K/UL ABSOLUTE EOSINOPHILS (test c ode = 1040) 0.27 K/UL ABSOLUTE BASOPHILS (test cod e = 1069) 0.03 K/UL ABS IMMATURE GRANULOCYTES (t est code = 1020) 0.02 K/UL ABS NUCLEATED RBCS (test cod e = 38540) 0.00 K/UL Stuart Mccullough MattSEDIMENTATION [id number] 00:00:00* Test Item Value Reference Range Interpretation Comme nts SEDIMENTATION RATE (test cod e = 1017) 10 MM/HOUR Stuart GutierrezHIGH SENSITIVITY [id number] 00:00:00* Test Item Value Reference Range Interpretation Comme nts HIGH SENSITIVITY CRP (test c ode = 59584) 1.5 MG/L Stuart GutierrezRHEUMATOID FACTOR, [id number] 00:00:00* Test Item Value Reference Range Interpretation Comme nts RHEUMATOID FACTOR, QUANT (te st code = 3502) <10 IU/ML Stuart Mccullough MattCK, [id number] 00:00:00* Test Item Value Reference Range Interpretation Comme nts CK, TOTAL (test code = 2013) 674 U/L Stuart Mccullough MattCBC W/AUTO [id number] 00:00:00* Test Item Value Reference Range Interpretation Comme nts WBC (test code = 1001) 7.0 K/UL RBC (test code = 1002) 4.64 M/UL HEMOGLOBIN (test code = 1003) 13.3 G/DL HEMATOCRIT (test code = 1004) 39.8 % MCV (test code = 1005) 85.8 fL MCH (test code = 1006) 28.7 PG MCHC (test code = 1007) 33.4 G/DL RDW (test code = 1038) 13.2 % NEUTROPHILS (test code = 1008) 72.0 % LYMPHOCYTES (test code = 1010) 16.4 % MONOCYTES (test code = 1011) 7.0 % EOSINOPHILS (test code = 1012) 3.9 % BASOPHILS (test code = 1013) 0.4 % IMMATURE GRANULOCYTES (test code = 1036) 0.3 % NUCLEATED RBCS (test code = 1065) 0.0 /100WBC'S PLATELET COUNT (test code = 1015) 376 K/UL ABSOLUTE NEUTROPHILS (test c ode = 1066) 5.04 K/UL ABSOLUTE LYMPHOCYTES (test c ode = 1067) 1.15 K/UL ABSOLUTE MONOCYTES (test cod e = 1068) 0.49 K/UL ABSOLUTE EOSINOPHILS (test c ode = 1040) 0.27 K/UL ABSOLUTE BASOPHILS (test cod e = 1069) 0.03 K/UL ABS IMMATURE GRANULOCYTES (t est code = 1020) 0.02 K/UL ABS NUCLEATED RBCS (test cod e = 70083) 0.00 K/UL Stuart F AustinSEDIMENTATION [id number] 00:00:00* Test Item Value Reference Range Interpretation Comme nts SEDIMENTATION RATE (test cod e = 1017) 10 MM/HOUR Stuart F AustinHIGH SENSITIVITY [id number] 00:00:00* Test Item Value Reference Range Interpretation Comme nts HIGH SENSITIVITY CRP (test c ode = 97967) 1.5 MG/L Stuart F AustinRHEUMATOID FACTOR, [id number] 00:00:00* Test Item Value Reference Range Interpretation Comme nts RHEUMATOID FACTOR, QUANT (te st code = 3502) <10 IU/ML Stuart F AustinCOMPREHENSIVE METABOLIC [id number] 00:00:00* Test Item Value Reference Range Interpretation Comme nts GLUCOSE (test code = 2217) 86 MG/DL BUN (test code = 2208) 9 MG/DL CREATININE (test code = 2214) 1.11 MG/DL eGFR (2020 CKD-EPI) (test co de = 72366) 59 ML/MIN/1.73 CALC BUN/CREAT (test code = 2235) 8 RATIO SODIUM (test code = 2231) 140 MEQ/L POTASSIUM (test code = 2228) 4.4 MEQ/L CHLORIDE (test code = 2215) 103 MEQ/L CARBON DIOXIDE (test code = 2206) 28 MEQ/L CALCIUM (test code = 2209) 9.7 MG/DL PROTEIN, TOTAL (test code = 2229) 5.8 G/DL ALBUMIN (test code = 2201) 4.1 G/DL CALC GLOBULIN (test code = 2240) 1.7 G/DL CALC A/G RATIO (test code = 2234) 2.4 RATIO BILIRUBIN, TOTAL (test code = 2207) 0.2 MG/DL ALKALINE PHOSPHATASE (test code = 2204) 80 U/L AST (test code = 2218) 14 U/L ALT (test code = 2219) 16 U/L Stuart GutierrezHEMOGLOBIN [id number] 00:00:00* Test Item Value Reference Range Interpretation Comme nts HEMOGLOBIN A1c (test code = 52214) 5.6 % Stuart GutierrezLIPID [id number] 00:00:00* Test Item Value Reference Range Interpretation Comme nts CHOLESTEROL (test code = 2210) 169 MG/DL TRIGLYCERIDES (test code = 2232) 198 MG/DL HDL CHOLESTEROL (test code = 2220) 48 MG/DL CALC LDL CHOL (test code = 2237) 91 MG/DL RISK RATIO LDL/HDL (test cod e = 2238) 1.90 RATIO Stuart GutierrezTSH, THIRD [id number] 00:00:00* Test Item Value Reference Range Interpretation Comme nts TSH, THIRD GENERATION (test code = 2821) 1.420 UIU/ML Stuart GutierrezCOMPREHENSIVE METABOLIC [id number] 00:00:00* Test Item Value Reference Range Interpretation Comme nts GLUCOSE (test code = 2217) 86 MG/DL BUN (test code = 2208) 9 MG/DL CREATININE (test code = 2214) 1.11 MG/DL eGFR (2020 CKD-EPI) (test co de = 64003) 59 ML/MIN/1.73 CALC BUN/CREAT (test code = 2235) 8 RATIO SODIUM (test code = 2231) 140 MEQ/L POTASSIUM (test code = 2228) 4.4 MEQ/L CHLORIDE (test code = 2215) 103 MEQ/L CARBON DIOXIDE (test code = 2206) 28 MEQ/L CALCIUM (test code = 2209) 9.7 MG/DL PROTEIN, TOTAL (test code = 2229) 5.8 G/DL ALBUMIN (test code = 2201) 4.1 G/DL CALC GLOBULIN (test code = 2240) 1.7 G/DL CALC A/G RATIO (test code = 2234) 2.4 RATIO BILIRUBIN, TOTAL (test code = 2207) 0.2 MG/DL ALKALINE PHOSPHATASE (test code = 2204) 80 U/L AST (test code = 2218) 14 U/L ALT (test code = 2219) 16 U/L Stuart GutierrezHEMOGLOBIN [id number] 00:00:00* Test Item Value Reference Range Interpretation Comme nts HEMOGLOBIN A1c (test code = 79997) 5.6 % Stuart GutierrezLIPID [id number] 00:00:00* Test Item Value Reference Range Interpretation Comme nts CHOLESTEROL (test code = 2210) 169 MG/DL TRIGLYCERIDES (test code = 2232) 198 MG/DL HDL CHOLESTEROL (test code = 2220) 48 MG/DL CALC LDL CHOL (test code = 2237) 91 MG/DL RISK RATIO LDL/HDL (test cod e = 2238) 1.90 RATIO Stuart GutierrezTSH, THIRD [id number] 00:00:00* Test Item Value Reference Range Interpretation Comme nts TSH, THIRD GENERATION (test code = 2821) 1.420 UIU/ML Stuart GutierrezCOMPREHENSIVE METABOLIC [id number] 00:00:00* Test Item Value Reference Range Interpretation Comme nts GLUCOSE (test code = 2217) 86 MG/DL BUN (test code = 2208) 9 MG/DL CREATININE (test code = 2214) 1.11 MG/DL eGFR (2020 CKD-EPI) (test co de = 02498) 59 ML/MIN/1.73 CALC BUN/CREAT (test code = 2235) 8 RATIO SODIUM (test code = 2231) 140 MEQ/L POTASSIUM (test code = 2228) 4.4 MEQ/L CHLORIDE (test code = 2215) 103 MEQ/L CARBON DIOXIDE (test code = 2206) 28 MEQ/L CALCIUM (test code = 2209) 9.7 MG/DL PROTEIN, TOTAL (test code = 2229) 5.8 G/DL ALBUMIN (test code = 2201) 4.1 G/DL CALC GLOBULIN (test code = 2240) 1.7 G/DL CALC A/G RATIO (test code = 2234) 2.4 RATIO BILIRUBIN, TOTAL (test code = 2207) 0.2 MG/DL ALKALINE PHOSPHATASE (test code = 2204) 80 U/L AST (test code = 2218) 14 U/L ALT (test code = 2219) 16 U/L Stuart GutierrezHEMOGLOBIN [id number] 00:00:00* Test Item Value Reference Range Interpretation Comme nts HEMOGLOBIN A1c (test code = 59990) 5.6 % Stuart GutierrezLIPID [id number] 00:00:00* Test Item Value Reference Range Interpretation Comme nts CHOLESTEROL (test code = 2210) 169 MG/DL TRIGLYCERIDES (test code = 2232) 198 MG/DL HDL CHOLESTEROL (test code = 2220) 48 MG/DL CALC LDL CHOL (test code = 2237) 91 MG/DL RISK RATIO LDL/HDL (test cod e = 2238) 1.90 RATIO Stuart GutierrezTSH, THIRD [id number] 00:00:00* Test Item Value Reference Range Interpretation Comme nts TSH, THIRD GENERATION (test code = 2821) 1.420 UIU/ML Stuart GutierrezCOMPREHENSIVE METABOLIC [id number] 00:00:00* Test Item Value Reference Range Interpretation Comme nts GLUCOSE (test code = 2217) 86 MG/DL BUN (test code = 2208) 9 MG/DL CREATININE (test code = 2214) 1.11 MG/DL eGFR (2020 CKD-EPI) (test co de = 32199) 59 ML/MIN/1.73 CALC BUN/CREAT (test code = 2235) 8 RATIO SODIUM (test code = 2231) 140 MEQ/L POTASSIUM (test code = 2228) 4.4 MEQ/L CHLORIDE (test code = 2215) 103 MEQ/L CARBON DIOXIDE (test code = 2206) 28 MEQ/L CALCIUM (test code = 2209) 9.7 MG/DL PROTEIN, TOTAL (test code = 2229) 5.8 G/DL ALBUMIN (test code = 2201) 4.1 G/DL CALC GLOBULIN (test code = 2240) 1.7 G/DL CALC A/G RATIO (test code = 2234) 2.4 RATIO BILIRUBIN, TOTAL (test code = 2207) 0.2 MG/DL ALKALINE PHOSPHATASE (test code = 2204) 80 U/L AST (test code = 2218) 14 U/L ALT (test code = 2219) 16 U/L Stuart GutierrezHEMOGLOBIN [id number] 00:00:00* Test Item Value Reference Range Interpretation Comme azra HEMOGLOBIN A1c (test code = 40750) 5.6 % Stuart GutierrezLIPID [id number] 00:00:00* Test Item Value Reference Range Interpretation Comme nts CHOLESTEROL (test code = 2210) 169 MG/DL TRIGLYCERIDES (test code = 2232) 198 MG/DL HDL CHOLESTEROL (test code = 2220) 48 MG/DL CALC LDL CHOL (test code = 2237) 91 MG/DL RISK RATIO LDL/HDL (test cod e = 2238) 1.90 RATIO Stuart GutierrezTSH, THIRD [id number] 00:00:00* Test Item Value Reference Range Interpretation Comme azra TSH, THIRD GENERATION (test code = 2821) 1.420 UIU/ML Stuart GutierrezCOMPREHENSIVE METABOLIC [id number] 00:00:00* Test Item Value Reference Range Interpretation Comme nts GLUCOSE (test code = 2217) 86 MG/DL BUN (test code = 2208) 9 MG/DL CREATININE (test code = 2214) 1.11 MG/DL eGFR (2020 CKD-EPI) (test co de = 27112) 59 ML/MIN/1.73 CALC BUN/CREAT (test code = 2235) 8 RATIO SODIUM (test code = 2231) 140 MEQ/L POTASSIUM (test code = 2228) 4.4 MEQ/L CHLORIDE (test code = 2215) 103 MEQ/L CARBON DIOXIDE (test code = 2206) 28 MEQ/L CALCIUM (test code = 2209) 9.7 MG/DL PROTEIN, TOTAL (test code = 2229) 5.8 G/DL ALBUMIN (test code = 2201) 4.1 G/DL CALC GLOBULIN (test code = 2240) 1.7 G/DL CALC A/G RATIO (test code = 2234) 2.4 RATIO BILIRUBIN, TOTAL (test code = 2207) 0.2 MG/DL ALKALINE PHOSPHATASE (test code = 2204) 80 U/L AST (test code = 2218) 14 U/L ALT (test code = 2219) 16 U/L Stuart GutierrezHEMOGLOBIN [id number] 00:00:00* Test Item Value Reference Range Interpretation Comme azra HEMOGLOBIN A1c (test code = 99443) 5.6 % Stuart GutierrezLIPID [id number] 00:00:00* Test Item Value Reference Range Interpretation Comme nts CHOLESTEROL (test code = 2210) 169 MG/DL TRIGLYCERIDES (test code = 2232) 198 MG/DL HDL CHOLESTEROL (test code = 2220) 48 MG/DL CALC LDL CHOL (test code = 2237) 91 MG/DL RISK RATIO LDL/HDL (test cod e = 2238) 1.90 RATIO Stuart GutierrezTSH, THIRD [id number] 00:00:00* Test Item Value Reference Range Interpretation Comme nts TSH, THIRD GENERATION (test code = 2821) 1.420 UIU/ML Stuart GutierrezCOMPREHENSIVE METABOLIC [id number] 00:00:00* Test Item Value Reference Range Interpretation Comme nts GLUCOSE (test code = 2217) 86 MG/DL BUN (test code = 2208) 9 MG/DL CREATININE (test code = 2214) 1.11 MG/DL eGFR (2020 CKD-EPI) (test co de = 60846) 59 ML/MIN/1.73 CALC BUN/CREAT (test code = 2235) 8 RATIO SODIUM (test code = 2231) 140 MEQ/L POTASSIUM (test code = 2228) 4.4 MEQ/L CHLORIDE (test code = 2215) 103 MEQ/L CARBON DIOXIDE (test code = 2206) 28 MEQ/L CALCIUM (test code = 2209) 9.7 MG/DL PROTEIN, TOTAL (test code = 2229) 5.8 G/DL ALBUMIN (test code = 2201) 4.1 G/DL CALC GLOBULIN (test code = 2240) 1.7 G/DL CALC A/G RATIO (test code = 2234) 2.4 RATIO BILIRUBIN, TOTAL (test code = 2207) 0.2 MG/DL ALKALINE PHOSPHATASE (test code = 2204) 80 U/L AST (test code = 2218) 14 U/L ALT (test code = 2219) 16 U/L Stuart GutierrezHEMOGLOBIN [id number] 00:00:00* Test Item Value Reference Range Interpretation Comme azra HEMOGLOBIN A1c (test code = 82868) 5.6 % Stuart GutierrezLIPID [id number] 00:00:00* Test Item Value Reference Range Interpretation Comme nts CHOLESTEROL (test code = 2210) 169 MG/DL TRIGLYCERIDES (test code = 2232) 198 MG/DL HDL CHOLESTEROL (test code = 2220) 48 MG/DL CALC LDL CHOL (test code = 2237) 91 MG/DL RISK RATIO LDL/HDL (test cod e = 2238) 1.90 RATIO Stuart GutierrezTSH, THIRD [id number] 00:00:00* Test Item Value Reference Range Interpretation Comme nts TSH, THIRD GENERATION (test code = 2821) 1.420 UIU/ML Stuart GutierrezCOMPREHENSIVE METABOLIC [id number] 00:00:00* Test Item Value Reference Range Interpretation Comme nts GLUCOSE (test code = 2217) 86 MG/DL BUN (test code = 2208) 9 MG/DL CREATININE (test code = 2214) 1.11 MG/DL eGFR (2020 CKD-EPI) (test co de = 16962) 59 ML/MIN/1.73 CALC BUN/CREAT (test code = 2235) 8 RATIO SODIUM (test code = 2231) 140 MEQ/L POTASSIUM (test code = 2228) 4.4 MEQ/L CHLORIDE (test code = 2215) 103 MEQ/L CARBON DIOXIDE (test code = 2206) 28 MEQ/L CALCIUM (test code = 2209) 9.7 MG/DL PROTEIN, TOTAL (test code = 2229) 5.8 G/DL ALBUMIN (test code = 2201) 4.1 G/DL CALC GLOBULIN (test code = 2240) 1.7 G/DL CALC A/G RATIO (test code = 2234) 2.4 RATIO BILIRUBIN, TOTAL (test code = 2207) 0.2 MG/DL ALKALINE PHOSPHATASE (test code = 2204) 80 U/L AST (test code = 2218) 14 U/L ALT (test code = 2219) 16 U/L Stuart GutierrezHEMOGLOBIN [id number] 00:00:00* Test Item Value Reference Range Interpretation Comme azra HEMOGLOBIN A1c (test code = 95593) 5.6 % Stuart GutierrezLIPID [id number] 00:00:00* Test Item Value Reference Range Interpretation Comme nts CHOLESTEROL (test code = 2210) 169 MG/DL TRIGLYCERIDES (test code = 2232) 198 MG/DL HDL CHOLESTEROL (test code = 2220) 48 MG/DL CALC LDL CHOL (test code = 2237) 91 MG/DL RISK RATIO LDL/HDL (test cod e = 2238) 1.90 RATIO Stuart GutierrezTSH, THIRD [id number] 00:00:00* Test Item Value Reference Range Interpretation Comme azra TSH, THIRD GENERATION (test code = 2821) 1.420 UIU/ML Stuart Mccullough AustinURINALYSIS W/REFLEX [id number] 00:00:00* Test Item Value Reference Range Interpretation Comme nts COLOR (test code = 1501) YELLOW APPEARANCE (test code = 1502) CLEAR SPECIFIC GRAVITY (test code = 1503) 1.010 LEUKOCYTE ESTERASE (test cod e = 1504) NEGATIVE NITRITE (test code = 1505) NEGATIVE pH (test code = 1506) 8.0 PROTEIN (test code = 1507) NEGATIVE GLUCOSE (test code = 1508) NEGATIVE KETONES (test code = 1509) NEGATIVE UROBILINOGEN (test code = 1510) 1.0 MG/DL BILIRUBIN (test code = 1511) NEGATIVE OCCULT BLOOD (test code = 1512) NEGATIVE Stuart Mccullough AustinURINALYSIS W/REFLEX [id number] 00:00:00* Test Item Value Reference Range Interpretation Comme nts COLOR (test code = 1501) YELLOW APPEARANCE (test code = 1502) CLEAR SPECIFIC GRAVITY (test code = 1503) 1.010 LEUKOCYTE ESTERASE (test cod e = 1504) NEGATIVE NITRITE (test code = 1505) NEGATIVE pH (test code = 1506) 8.0 PROTEIN (test code = 1507) NEGATIVE GLUCOSE (test code = 1508) NEGATIVE KETONES (test code = 1509) NEGATIVE UROBILINOGEN (test code = 1510) 1.0 MG/DL BILIRUBIN (test code = 1511) NEGATIVE OCCULT BLOOD (test code = 1512) NEGATIVE Stuart F AustinURINALYSIS W/REFLEX [id number] 00:00:00* Test Item Value Reference Range Interpretation Comme nts COLOR (test code = 1501) YELLOW APPEARANCE (test code = 1502) CLEAR SPECIFIC GRAVITY (test code = 1503) 1.010 LEUKOCYTE ESTERASE (test cod e = 1504) NEGATIVE NITRITE (test code = 1505) NEGATIVE pH (test code = 1506) 8.0 PROTEIN (test code = 1507) NEGATIVE GLUCOSE (test code = 1508) NEGATIVE KETONES (test code = 1509) NEGATIVE UROBILINOGEN (test code = 1510) 1.0 MG/DL BILIRUBIN (test code = 1511) NEGATIVE OCCULT BLOOD (test code = 1512) NEGATIVE Stuart F AustinURINALYSIS W/REFLEX [id number] 00:00:00* Test Item Value Reference Range Interpretation Comme nts COLOR (test code = 1501) YELLOW APPEARANCE (test code = 1502) CLEAR SPECIFIC GRAVITY (test code = 1503) 1.010 LEUKOCYTE ESTERASE (test cod e = 1504) NEGATIVE NITRITE (test code = 1505) NEGATIVE pH (test code = 1506) 8.0 PROTEIN (test code = 1507) NEGATIVE GLUCOSE (test code = 1508) NEGATIVE KETONES (test code = 1509) NEGATIVE UROBILINOGEN (test code = 1510) 1.0 MG/DL BILIRUBIN (test code = 1511) NEGATIVE OCCULT BLOOD (test code = 1512) NEGATIVE Stuart F AustinURINALYSIS W/REFLEX [id number] 00:00:00* Test Item Value Reference Range Interpretation Comme nts COLOR (test code = 1501) YELLOW APPEARANCE (test code = 1502) CLEAR SPECIFIC GRAVITY (test code = 1503) 1.010 LEUKOCYTE ESTERASE (test cod e = 1504) NEGATIVE NITRITE (test code = 1505) NEGATIVE pH (test code = 1506) 8.0 PROTEIN (test code = 1507) NEGATIVE GLUCOSE (test code = 1508) NEGATIVE KETONES (test code = 1509) NEGATIVE UROBILINOGEN (test code = 1510) 1.0 MG/DL BILIRUBIN (test code = 1511) NEGATIVE OCCULT BLOOD (test code = 1512) NEGATIVE Stuart F AustinURINALYSIS W/REFLEX [id number] 00:00:00* Test Item Value Reference Range Interpretation Comme nts COLOR (test code = 1501) YELLOW APPEARANCE (test code = 1502) CLEAR SPECIFIC GRAVITY (test code = 1503) 1.010 LEUKOCYTE ESTERASE (test cod e = 1504) NEGATIVE NITRITE (test code = 1505) NEGATIVE pH (test code = 1506) 8.0 PROTEIN (test code = 1507) NEGATIVE GLUCOSE (test code = 1508) NEGATIVE KETONES (test code = 1509) NEGATIVE UROBILINOGEN (test code = 1510) 1.0 MG/DL BILIRUBIN (test code = 1511) NEGATIVE OCCULT BLOOD (test code = 1512) NEGATIVE Stuart F AustinURINALYSIS W/REFLEX [id number] 00:00:00* Test Item Value Reference Range Interpretation Comme nts COLOR (test code = 1501) YELLOW APPEARANCE (test code = 1502) CLEAR SPECIFIC GRAVITY (test code = 1503) 1.010 LEUKOCYTE ESTERASE (test cod e = 1504) NEGATIVE NITRITE (test code = 1505) NEGATIVE pH (test code = 1506) 8.0 PROTEIN (test code = 1507) NEGATIVE GLUCOSE (test code = 1508) NEGATIVE KETONES (test code = 1509) NEGATIVE UROBILINOGEN (test code = 1510) 1.0 MG/DL BILIRUBIN (test code = 1511) NEGATIVE OCCULT BLOOD (test code = 1512) NEGATIVE Stuart F AustinURINALYSIS W/REFLEX [id number] 00:00:00* Test Item Value Reference Range Interpretation Comme nts COLOR (test code = 1501) YELLOW APPEARANCE (test code = 1502) CLEAR SPECIFIC GRAVITY (test code = 1503) 1.010 LEUKOCYTE ESTERASE (test cod e = 1504) NEGATIVE NITRITE (test code = 1505) NEGATIVE pH (test code = 1506) 8.0 PROTEIN (test code = 1507) NEGATIVE GLUCOSE (test code = 1508) NEGATIVE KETONES (test code = 1509) NEGATIVE UROBILINOGEN (test code = 1510) 1.0 MG/DL BILIRUBIN (test code = 1511) NEGATIVE OCCULT BLOOD (test code = 1512) NEGATIVE Stuart F AustinURINALYSIS W/REFLEX [id number] 00:00:00* Test Item Value Reference Range Interpretation Comme nts COLOR (test code = 1501) YELLOW APPEARANCE (test code = 1502) CLEAR SPECIFIC GRAVITY (test code = 1503) 1.010 LEUKOCYTE ESTERASE (test cod e = 1504) NEGATIVE NITRITE (test code = 1505) NEGATIVE pH (test code = 1506) 8.0 PROTEIN (test code = 1507) NEGATIVE GLUCOSE (test code = 1508) NEGATIVE KETONES (test code = 1509) NEGATIVE UROBILINOGEN (test code = 1510) 1.0 MG/DL BILIRUBIN (test code = 1511) NEGATIVE OCCULT BLOOD (test code = 1512) NEGATIVE Stuart GutierrezLIPID [id number] 00:00:00* Test Item Value Reference Range Interpretation Comme nts CHOLESTEROL (test code = 2210) 173 MG/DL TRIGLYCERIDES (test code = 2232) 208 MG/DL HDL CHOLESTEROL (test code = 2220) 51 MG/DL CALC LDL CHOL (test code = 2237) 92 MG/DL RISK RATIO LDL/HDL (test cod e = 2238) 1.80 RATIO Stuart GutierrezHEMOGLOBIN [id number] 00:00:00* Test Item Value Reference Range Interpretation Comme nts HEMOGLOBIN A1c (test code = 20896) 5.5 % Stuart GutierrezCOMPREHENSIVE METABOLIC [id number] 00:00:00* Test Item Value Reference Range Interpretation Comme nts GLUCOSE (test code = 2217) 89 MG/DL BUN (test code = 2208) 8 MG/DL CREATININE (test code = 2214) 0.80 MG/DL eGFR (2020 CKD-EPI) (test co de = 28704) 89 ML/MIN/1.73 CALC BUN/CREAT (test code = 2235) 10 RATIO SODIUM (test code = 2231) 141 MEQ/L POTASSIUM (test code = 2228) 4.2 MEQ/L CHLORIDE (test code = 2215) 105 MEQ/L CARBON DIOXIDE (test code = 2206) 27 MEQ/L CALCIUM (test code = 2209) 9.9 MG/DL PROTEIN, TOTAL (test code = 2229) 6.1 G/DL ALBUMIN (test code = 2201) 4.2 G/DL CALC GLOBULIN (test code = 2240) 1.9 G/DL CALC A/G RATIO (test code = 2234) 2.2 RATIO BILIRUBIN, TOTAL (test code = 2207) <0.2 MG/DL ALKALINE PHOSPHATASE (test code = 2204) 74 U/L AST (test code = 2218) 12 U/L ALT (test code = 2219) 13 U/L Stuart Mccullough AustinLIPID [id number] 00:00:00* Test Item Value Reference Range Interpretation Comme nts CHOLESTEROL (test code = 2210) 173 MG/DL TRIGLYCERIDES (test code = 2232) 208 MG/DL HDL CHOLESTEROL (test code = 2220) 51 MG/DL CALC LDL CHOL (test code = 2237) 92 MG/DL RISK RATIO LDL/HDL (test cod e = 2238) 1.80 RATIO Stuart GutierrezHEMOGLOBIN [id number] 00:00:00* Test Item Value Reference Range Interpretation Comme nts HEMOGLOBIN A1c (test code = 45717) 5.5 % Stuart GutierrezCOMPREHENSIVE METABOLIC [id number] 00:00:00* Test Item Value Reference Range Interpretation Comme nts GLUCOSE (test code = 2217) 89 MG/DL BUN (test code = 2208) 8 MG/DL CREATININE (test code = 2214) 0.80 MG/DL eGFR (2020 CKD-EPI) (test co de = 28714) 89 ML/MIN/1.73 CALC BUN/CREAT (test code = 2235) 10 RATIO SODIUM (test code = 2231) 141 MEQ/L POTASSIUM (test code = 2228) 4.2 MEQ/L CHLORIDE (test code = 2215) 105 MEQ/L CARBON DIOXIDE (test code = 2206) 27 MEQ/L CALCIUM (test code = 2209) 9.9 MG/DL PROTEIN, TOTAL (test code = 2229) 6.1 G/DL ALBUMIN (test code = 2201) 4.2 G/DL CALC GLOBULIN (test code = 2240) 1.9 G/DL CALC A/G RATIO (test code = 2234) 2.2 RATIO BILIRUBIN, TOTAL (test code = 2207) <0.2 MG/DL ALKALINE PHOSPHATASE (test code = 2204) 74 U/L AST (test code = 2218) 12 U/L ALT (test code = 2219) 13 U/L Stuart F AustinLIPID [id number] 00:00:00* Test Item Value Reference Range Interpretation Comme nts CHOLESTEROL (test code = 2210) 173 MG/DL TRIGLYCERIDES (test code = 2232) 208 MG/DL HDL CHOLESTEROL (test code = 2220) 51 MG/DL CALC LDL CHOL (test code = 2237) 92 MG/DL RISK RATIO LDL/HDL (test cod e = 2238) 1.80 RATIO Stuart GutierrezHEMOGLOBIN [id number] 00:00:00* Test Item Value Reference Range Interpretation Comme nts HEMOGLOBIN A1c (test code = 96468) 5.5 % Stuart GutierrezCOMPREHENSIVE METABOLIC [id number] 00:00:00* Test Item Value Reference Range Interpretation Comme nts GLUCOSE (test code = 2217) 89 MG/DL BUN (test code = 2208) 8 MG/DL CREATININE (test code = 2214) 0.80 MG/DL eGFR (2020 CKD-EPI) (test co de = 42428) 89 ML/MIN/1.73 CALC BUN/CREAT (test code = 2235) 10 RATIO SODIUM (test code = 2231) 141 MEQ/L POTASSIUM (test code = 2228) 4.2 MEQ/L CHLORIDE (test code = 2215) 105 MEQ/L CARBON DIOXIDE (test code = 2206) 27 MEQ/L CALCIUM (test code = 2209) 9.9 MG/DL PROTEIN, TOTAL (test code = 2229) 6.1 G/DL ALBUMIN (test code = 2201) 4.2 G/DL CALC GLOBULIN (test code = 2240) 1.9 G/DL CALC A/G RATIO (test code = 2234) 2.2 RATIO BILIRUBIN, TOTAL (test code = 2207) <0.2 MG/DL ALKALINE PHOSPHATASE (test code = 2204) 74 U/L AST (test code = 2218) 12 U/L ALT (test code = 2219) 13 U/L Stuart GutierrezLIPID [id number] 00:00:00* Test Item Value Reference Range Interpretation Comme nts CHOLESTEROL (test code = 2210) 173 MG/DL TRIGLYCERIDES (test code = 2232) 208 MG/DL HDL CHOLESTEROL (test code = 2220) 51 MG/DL CALC LDL CHOL (test code = 2237) 92 MG/DL RISK RATIO LDL/HDL (test cod e = 2238) 1.80 RATIO Stuart Mccullough AustinHEMOGLOBIN [id number] 00:00:00* Test Item Value Reference Range Interpretation Comme nts HEMOGLOBIN A1c (test code = 84223) 5.5 % Stuart Mccullough AustinCOMPREHENSIVE METABOLIC [id number] 00:00:00* Test Item Value Reference Range Interpretation Comme nts GLUCOSE (test code = 2217) 89 MG/DL BUN (test code = 2208) 8 MG/DL CREATININE (test code = 2214) 0.80 MG/DL eGFR (2020 CKD-EPI) (test co de = 08103) 89 ML/MIN/1.73 CALC BUN/CREAT (test code = 2235) 10 RATIO SODIUM (test code = 2231) 141 MEQ/L POTASSIUM (test code = 2228) 4.2 MEQ/L CHLORIDE (test code = 2215) 105 MEQ/L CARBON DIOXIDE (test code = 2206) 27 MEQ/L CALCIUM (test code = 2209) 9.9 MG/DL PROTEIN, TOTAL (test code = 2229) 6.1 G/DL ALBUMIN (test code = 2201) 4.2 G/DL CALC GLOBULIN (test code = 2240) 1.9 G/DL CALC A/G RATIO (test code = 2234) 2.2 RATIO BILIRUBIN, TOTAL (test code = 2207) <0.2 MG/DL ALKALINE PHOSPHATASE (test code = 2204) 74 U/L AST (test code = 2218) 12 U/L ALT (test code = 2219) 13 U/L Stuart Mccullough AustinLIPID [id number] 00:00:00* Test Item Value Reference Range Interpretation Comme nts CHOLESTEROL (test code = 2210) 173 MG/DL TRIGLYCERIDES (test code = 2232) 208 MG/DL HDL CHOLESTEROL (test code = 2220) 51 MG/DL CALC LDL CHOL (test code = 2237) 92 MG/DL RISK RATIO LDL/HDL (test cod e = 2238) 1.80 RATIO Stuart Mccullough AustinHEMOGLOBIN [id number] 00:00:00* Test Item Value Reference Range Interpretation Comme nts HEMOGLOBIN A1c (test code = 67305) 5.5 % Stuart Mccullough AustinCOMPREHENSIVE METABOLIC [id number] 00:00:00* Test Item Value Reference Range Interpretation Comme nts GLUCOSE (test code = 2217) 89 MG/DL BUN (test code = 2208) 8 MG/DL CREATININE (test code = 2214) 0.80 MG/DL eGFR (2020 CKD-EPI) (test co de = 76291) 89 ML/MIN/1.73 CALC BUN/CREAT (test code = 2235) 10 RATIO SODIUM (test code = 2231) 141 MEQ/L POTASSIUM (test code = 2228) 4.2 MEQ/L CHLORIDE (test code = 2215) 105 MEQ/L CARBON DIOXIDE (test code = 2206) 27 MEQ/L CALCIUM (test code = 2209) 9.9 MG/DL PROTEIN, TOTAL (test code = 2229) 6.1 G/DL ALBUMIN (test code = 2201) 4.2 G/DL CALC GLOBULIN (test code = 2240) 1.9 G/DL CALC A/G RATIO (test code = 2234) 2.2 RATIO BILIRUBIN, TOTAL (test code = 2207) <0.2 MG/DL ALKALINE PHOSPHATASE (test code = 2204) 74 U/L AST (test code = 2218) 12 U/L ALT (test code = 2219) 13 U/L Stuart GutierrezLIPID [id number] 00:00:00* Test Item Value Reference Range Interpretation Comme nts CHOLESTEROL (test code = 2210) 173 MG/DL TRIGLYCERIDES (test code = 2232) 208 MG/DL HDL CHOLESTEROL (test code = 2220) 51 MG/DL CALC LDL CHOL (test code = 2237) 92 MG/DL RISK RATIO LDL/HDL (test cod e = 2238) 1.80 RATIO Stuart GutierrezHEMOGLOBIN [id number] 00:00:00* Test Item Value Reference Range Interpretation Comme nts HEMOGLOBIN A1c (test code = 59030) 5.5 % Stuart GutierrezCOMPREHENSIVE METABOLIC [id number] 00:00:00* Test Item Value Reference Range Interpretation Comme nts GLUCOSE (test code = 2217) 89 MG/DL BUN (test code = 2208) 8 MG/DL CREATININE (test code = 2214) 0.80 MG/DL eGFR (2020 CKD-EPI) (test co de = 85792) 89 ML/MIN/1.73 CALC BUN/CREAT (test code = 2235) 10 RATIO SODIUM (test code = 2231) 141 MEQ/L POTASSIUM (test code = 2228) 4.2 MEQ/L CHLORIDE (test code = 2215) 105 MEQ/L CARBON DIOXIDE (test code = 2206) 27 MEQ/L CALCIUM (test code = 2209) 9.9 MG/DL PROTEIN, TOTAL (test code = 2229) 6.1 G/DL ALBUMIN (test code = 2201) 4.2 G/DL CALC GLOBULIN (test code = 2240) 1.9 G/DL CALC A/G RATIO (test code = 2234) 2.2 RATIO BILIRUBIN, TOTAL (test code = 2207) <0.2 MG/DL ALKALINE PHOSPHATASE (test code = 2204) 74 U/L AST (test code = 2218) 12 U/L ALT (test code = 2219) 13 U/L Stuart GutierrezLIPID [id number] 00:00:00* Test Item Value Reference Range Interpretation Comme nts CHOLESTEROL (test code = 2210) 173 MG/DL TRIGLYCERIDES (test code = 2232) 208 MG/DL HDL CHOLESTEROL (test code = 2220) 51 MG/DL CALC LDL CHOL (test code = 2237) 92 MG/DL RISK RATIO LDL/HDL (test cod e = 2238) 1.80 RATIO Stuart GutierrezHEMOGLOBIN [id number] 00:00:00* Test Item Value Reference Range Interpretation Comme nts HEMOGLOBIN A1c (test code = 34208) 5.5 % Stuart GutierrezCOMPREHENSIVE METABOLIC [id number] 00:00:00* Test Item Value Reference Range Interpretation Comme nts GLUCOSE (test code = 2217) 89 MG/DL BUN (test code = 2208) 8 MG/DL CREATININE (test code = 2214) 0.80 MG/DL eGFR (2020 CKD-EPI) (test co de = 05237) 89 ML/MIN/1.73 CALC BUN/CREAT (test code = 2235) 10 RATIO SODIUM (test code = 2231) 141 MEQ/L POTASSIUM (test code = 2228) 4.2 MEQ/L CHLORIDE (test code = 2215) 105 MEQ/L CARBON DIOXIDE (test code = 2206) 27 MEQ/L CALCIUM (test code = 2209) 9.9 MG/DL PROTEIN, TOTAL (test code = 2229) 6.1 G/DL ALBUMIN (test code = 2201) 4.2 G/DL CALC GLOBULIN (test code = 2240) 1.9 G/DL CALC A/G RATIO (test code = 2234) 2.2 RATIO BILIRUBIN, TOTAL (test code = 2207) <0.2 MG/DL ALKALINE PHOSPHATASE (test code = 2204) 74 U/L AST (test code = 2218) 12 U/L ALT (test code = 2219) 13 U/L Stuart GutierrezLIPID [id number] 00:00:00* Test Item Value Reference Range Interpretation Comme nts CHOLESTEROL (test code = 2210) 173 MG/DL TRIGLYCERIDES (test code = 2232) 208 MG/DL HDL CHOLESTEROL (test code = 2220) 51 MG/DL CALC LDL CHOL (test code = 2237) 92 MG/DL RISK RATIO LDL/HDL (test cod e = 2238) 1.80 RATIO Stuart GutierrezHEMOGLOBIN [id number] 00:00:00* Test Item Value Reference Range Interpretation Comme nts HEMOGLOBIN A1c (test code = 16742) 5.5 % Stuart GutierrezCOMPREHENSIVE METABOLIC [id number] 00:00:00* Test Item Value Reference Range Interpretation Comme nts GLUCOSE (test code = 2217) 89 MG/DL BUN (test code = 2208) 8 MG/DL CREATININE (test code = 2214) 0.80 MG/DL eGFR (2020 CKD-EPI) (test co de = 37743) 89 ML/MIN/1.73 CALC BUN/CREAT (test code = 2235) 10 RATIO SODIUM (test code = 2231) 141 MEQ/L POTASSIUM (test code = 2228) 4.2 MEQ/L CHLORIDE (test code = 2215) 105 MEQ/L CARBON DIOXIDE (test code = 2206) 27 MEQ/L CALCIUM (test code = 2209) 9.9 MG/DL PROTEIN, TOTAL (test code = 2229) 6.1 G/DL ALBUMIN (test code = 2201) 4.2 G/DL CALC GLOBULIN (test code = 2240) 1.9 G/DL CALC A/G RATIO (test code = 2234) 2.2 RATIO BILIRUBIN, TOTAL (test code = 2207) <0.2 MG/DL ALKALINE PHOSPHATASE (test code = 2204) 74 U/L AST (test code = 2218) 12 U/L ALT (test code = 2219) 13 U/L Stuart GutierrezLIPID [id number] 00:00:00* Test Item Value Reference Range Interpretation Comme nts CHOLESTEROL (test code = 2210) 173 MG/DL TRIGLYCERIDES (test code = 2232) 208 MG/DL HDL CHOLESTEROL (test code = 2220) 51 MG/DL CALC LDL CHOL (test code = 2237) 92 MG/DL RISK RATIO LDL/HDL (test cod e = 2238) 1.80 RATIO Stuart GutierrezHEMOGLOBIN [id number] 00:00:00* Test Item Value Reference Range Interpretation Comme nts HEMOGLOBIN A1c (test code = 57453) 5.5 % Stuart GutierrezCOMPREHENSIVE METABOLIC [id number] 00:00:00* Test Item Value Reference Range Interpretation Comme nts GLUCOSE (test code = 2217) 89 MG/DL BUN (test code = 2208) 8 MG/DL CREATININE (test code = 2214) 0.80 MG/DL eGFR (2020 CKD-EPI) (test co de = 01993) 89 ML/MIN/1.73 CALC BUN/CREAT (test code = 2235) 10 RATIO SODIUM (test code = 2231) 141 MEQ/L POTASSIUM (test code = 2228) 4.2 MEQ/L CHLORIDE (test code = 2215) 105 MEQ/L CARBON DIOXIDE (test code = 2206) 27 MEQ/L CALCIUM (test code = 2209) 9.9 MG/DL PROTEIN, TOTAL (test code = 2229) 6.1 G/DL ALBUMIN (test code = 2201) 4.2 G/DL CALC GLOBULIN (test code = 2240) 1.9 G/DL CALC A/G RATIO (test code = 2234) 2.2 RATIO BILIRUBIN, TOTAL (test code = 2207) <0.2 MG/DL ALKALINE PHOSPHATASE (test code = 2204) 74 U/L AST (test code = 2218) 12 U/L ALT (test code = 2219) 13 U/L Stuart GutierrezGC AND CHLAMYDIA AMPLIFIED, [id number] 00:00:00* Test Item Value Reference Range Interpretation Comme nts CHLAMYDIA, NAAT, THINPREP (t est code = 94297) NEGATIVE GONORRHEA, NAAT, THINPREP (t est code = 45510) NEGATIVE Stuart GutierrezPAP TEST, THINPREP, [id number] 00:00:00* Test Item Value Reference Range Interpretation Comme nts SOURCE: (test code = 8001) Cervical/Endocervical SLIDES: (test code = 8011) 1 LMP: (test code = 8021) NOT GIVEN SPECIMEN ADEQUACY: (test code = 44274) (NOTE) INTERPRETATION: (test code = 74887) NILM/NO EPITH. ABNORMALITY;SEE BELOW OTHER COMMENTS: (test code = 8081) (NOTE) AIRPORT SECURITY SCREENER: (test code = 8101) [facility] LOCATION: (test code = 47167) (NOTE) CPT: (test code = 8140) (NOTE) Stuart GutierrezHPV HIGH RISK WITH GENOTYPE, [id number] 00:00:00* Test Item Value Reference Range Interpretation Comme nts HPV HIGH RISK INTERP (test c ode = 58185) NEGATIVE HPV 16 (test code = 41090) NEGATIVE HPV 18 (test code = 16820) NEGATIVE HPV, HR, OTHER GENOTYPES (te st code = 78905) NEGATIVE Stuart GutierrezGC AND CHLAMYDIA AMPLIFIED, [id number] 00:00:00* Test Item Value Reference Range Interpretation Comme nts CHLAMYDIA, NAAT, THINPREP (t est code = 38682) NEGATIVE GONORRHEA, NAAT, THINPREP (t est code = 03894) NEGATIVE Stuart GutierrezPAP TEST, THINPREP, [id number] 00:00:00* Test Item Value Reference Range Interpretation Comme nts SOURCE: (test code = 8001) Cervical/Endocervical SLIDES: (test code = 8011) 1 LMP: (test code = 8021) NOT GIVEN SPECIMEN ADEQUACY: (test code = 78865) (NOTE) INTERPRETATION: (test code = 65168) NILM/NO EPITH. ABNORMALITY;SEE BELOW OTHER COMMENTS: (test code = 8081) (NOTE) AIRPORT SECURITY SCREENER: (test code = 8101) [facility] LOCATION: (test code = 12981) (NOTE) CPT: (test code = 8140) (NOTE) Stuart Mccullough AustinHPV HIGH RISK WITH GENOTYPE, [id number] 00:00:00* Test Item Value Reference Range Interpretation Comme nts HPV HIGH RISK INTERP (test c ode = 57768) NEGATIVE HPV 16 (test code = 08042) NEGATIVE HPV 18 (test code = 29222) NEGATIVE HPV, HR, OTHER GENOTYPES (te st code = 33933) NEGATIVE Stuart Mccullough AustinGC AND CHLAMYDIA AMPLIFIED, [id number] 00:00:00* Test Item Value Reference Range Interpretation Comme nts CHLAMYDIA, NAAT, THINPREP (t est code = 42333) NEGATIVE GONORRHEA, NAAT, THINPREP (t est code = 13585) NEGATIVE Stuart Mccullough AustinPAP TEST, THINPREP, [id number] 00:00:00* Test Item Value Reference Range Interpretation Comme nts SOURCE: (test code = 8001) Cervical/Endocervical SLIDES: (test code = 8011) 1 LMP: (test code = 8021) NOT GIVEN SPECIMEN ADEQUACY: (test code = 80717) (NOTE) INTERPRETATION: (test code = 18981) NILM/NO EPITH. ABNORMALITY;SEE BELOW OTHER COMMENTS: (test code = 8081) (NOTE) AIRPORT SECURITY SCREENER: (test code = 8101) Rosie Cruz LOCATION: (test code = 99249) (NOTE) CPT: (test code = 8140) (NOTE) Stuart Mccullough AustinHPV HIGH RISK WITH GENOTYPE, [id number] 00:00:00* Test Item Value Reference Range Interpretation Comme nts HPV HIGH RISK INTERP (test c ode = 42210) NEGATIVE HPV 16 (test code = 43767) NEGATIVE HPV 18 (test code = 61492) NEGATIVE HPV, HR, OTHER GENOTYPES (te st code = 08529) NEGATIVE Stuart Mccullough AustinGC AND CHLAMYDIA AMPLIFIED, [id number] 00:00:00* Test Item Value Reference Range Interpretation Comme nts CHLAMYDIA, NAAT, THINPREP (t est code = 68686) NEGATIVE GONORRHEA, NAAT, THINPREP (t est code = 92244) NEGATIVE Stuart Mccullough AustinPAP TEST, THINPREP, [id number] 00:00:00* Test Item Value Reference Range Interpretation Comme nts SOURCE: (test code = 8001) Cervical/Endocervical SLIDES: (test code = 8011) 1 LMP: (test code = 8021) NOT GIVEN SPECIMEN ADEQUACY: (test code = 23374) (NOTE) INTERPRETATION: (test code = 37355) NILM/NO EPITH. ABNORMALITY;SEE BELOW OTHER COMMENTS: (test code = 8081) (NOTE) AIRPORT SECURITY SCREENER: (test code = 8101) [facility] LOCATION: (test code = 53738) (NOTE) CPT: (test code = 8140) (NOTE) Stuart Mccullough AustinHPV HIGH RISK WITH GENOTYPE, [id number] 00:00:00* Test Item Value Reference Range Interpretation Comme nts HPV HIGH RISK INTERP (test c ode = 19057) NEGATIVE HPV 16 (test code = 36507) NEGATIVE HPV 18 (test code = 03065) NEGATIVE HPV, HR, OTHER GENOTYPES (te st code = 22091) NEGATIVE Stuart Mccullough AustinGC AND CHLAMYDIA AMPLIFIED, [id number] 00:00:00* Test Item Value Reference Range Interpretation Comme nts CHLAMYDIA, NAAT, THINPREP (t est code = 15784) NEGATIVE GONORRHEA, NAAT, THINPREP (t est code = 98469) NEGATIVE Stuart GutierrezPAP TEST, THINPREP, [id number] 00:00:00* Test Item Value Reference Range Interpretation Comme nts SOURCE: (test code = 8001) Cervical/Endocervical SLIDES: (test code = 8011) 1 LMP: (test code = 8021) NOT GIVEN SPECIMEN ADEQUACY: (test code = 88898) (NOTE) INTERPRETATION: (test code = 70170) NILM/NO EPITH. ABNORMALITY;SEE BELOW OTHER COMMENTS: (test code = 8081) (NOTE) AIRPORT SECURITY SCREENER: (test code = 8101) [facility] LOCATION: (test code = 41334) (NOTE) CPT: (test code = 8140) (NOTE) Stuart Mccullough AustinHPV HIGH RISK WITH GENOTYPE, [id number] 00:00:00* Test Item Value Reference Range Interpretation Comme nts HPV HIGH RISK INTERP (test c ode = 56798) NEGATIVE HPV 16 (test code = 55796) NEGATIVE HPV 18 (test code = 14337) NEGATIVE HPV, HR, OTHER GENOTYPES (te st code = 81410) NEGATIVE Stuart Mccullough AustinGC AND CHLAMYDIA AMPLIFIED, [id number] 00:00:00* Test Item Value Reference Range Interpretation Comme nts CHLAMYDIA, NAAT, THINPREP (t est code = 59343) NEGATIVE GONORRHEA, NAAT, THINPREP (t est code = 13004) NEGATIVE Stuart Mccullough AustinPAP TEST, THINPREP, [id number] 00:00:00* Test Item Value Reference Range Interpretation Comme nts SOURCE: (test code = 8001) Cervical/Endocervical SLIDES: (test code = 8011) 1 LMP: (test code = 8021) NOT GIVEN SPECIMEN ADEQUACY: (test code = 91515) (NOTE) INTERPRETATION: (test code = 69195) NILM/NO EPITH. ABNORMALITY;SEE BELOW OTHER COMMENTS: (test code = 8081) (NOTE) AIRPORT SECURITY SCREENER: (test code = 8101) Rosie Cruz LOCATION: (test code = 77961) (NOTE) CPT: (test code = 8140) (NOTE) Stuart GutierrezHPV HIGH RISK WITH GENOTYPE, [id number] 00:00:00* Test Item Value Reference Range Interpretation Comme nts HPV HIGH RISK INTERP (test c ode = 82388) NEGATIVE HPV 16 (test code = 02153) NEGATIVE HPV 18 (test code = 85108) NEGATIVE HPV, HR, OTHER GENOTYPES (te st code = 91112) NEGATIVE Stuart GutierrezGC AND CHLAMYDIA AMPLIFIED, [id number] 00:00:00* Test Item Value Reference Range Interpretation Comme nts CHLAMYDIA, NAAT, THINPREP (t est code = 85996) NEGATIVE GONORRHEA, NAAT, THINPREP (t est code = 58933) NEGATIVE Stuart Mccullough AustinPAP TEST, THINPREP, [id number] 00:00:00* Test Item Value Reference Range Interpretation Comme nts SOURCE: (test code = 8001) Cervical/Endocervical SLIDES: (test code = 8011) 1 LMP: (test code = 8021) NOT GIVEN SPECIMEN ADEQUACY: (test code = 00203) (NOTE) INTERPRETATION: (test code = 27765) NILM/NO EPITH. ABNORMALITY;SEE BELOW OTHER COMMENTS: (test code = 8081) (NOTE) AIRPORT SECURITY SCREENER: (test code = 8101) [facility] LOCATION: (test code = 17539) (NOTE) CPT: (test code = 8140) (NOTE) Stuart Mccullough AustinHPV HIGH RISK WITH GENOTYPE, [id number] 00:00:00* Test Item Value Reference Range Interpretation Comme nts HPV HIGH RISK INTERP (test c ode = 31705) NEGATIVE HPV 16 (test code = 15965) NEGATIVE HPV 18 (test code = 32980) NEGATIVE HPV, HR, OTHER GENOTYPES (te st code = 38089) NEGATIVE Stuart Mccullough AustinGC AND CHLAMYDIA AMPLIFIED, [id number] 00:00:00* Test Item Value Reference Range Interpretation Comme nts CHLAMYDIA, NAAT, THINPREP (t est code = 13779) NEGATIVE GONORRHEA, NAAT, THINPREP (t est code = 55452) NEGATIVE Stuart Mccullough AustinPAP TEST, THINPREP, [id number] 00:00:00* Test Item Value Reference Range Interpretation Comme nts SOURCE: (test code = 8001) Cervical/Endocervical SLIDES: (test code = 8011) 1 LMP: (test code = 8021) NOT GIVEN SPECIMEN ADEQUACY: (test code = 76030) (NOTE) INTERPRETATION: (test code = 01339) NILM/NO EPITH. ABNORMALITY;SEE BELOW OTHER COMMENTS: (test code = 8081) (NOTE) AIRPORT SECURITY SCREENER: (test code = 8101) [facility] LOCATION: (test code = 73170) (NOTE) CPT: (test code = 8140) (NOTE) Stuart Mccullough AustinHPV HIGH RISK WITH GENOTYPE, [id number] 00:00:00* Test Item Value Reference Range Interpretation Comme nts HPV HIGH RISK INTERP (test c ode = 83509) NEGATIVE HPV 16 (test code = 08010) NEGATIVE HPV 18 (test code = 79588) NEGATIVE HPV, HR, OTHER GENOTYPES (te st code = 86250) NEGATIVE Stuart Mccullough AustinGC AND CHLAMYDIA AMPLIFIED, [id number] 00:00:00* Test Item Value Reference Range Interpretation Comme nts CHLAMYDIA, NAAT, THINPREP (t est code = 79186) NEGATIVE GONORRHEA, NAAT, THINPREP (t est code = 54932) NEGATIVE Stuart GutierrezPAP TEST, THINPREP, [id number] 00:00:00* Test Item Value Reference Range Interpretation Comme nts SOURCE: (test code = 8001) Cervical/Endocervical SLIDES: (test code = 8011) 1 LMP: (test code = 8021) NOT GIVEN SPECIMEN ADEQUACY: (test code = 09670) (NOTE) INTERPRETATION: (test code = 85834) NILM/NO EPITH. ABNORMALITY;SEE BELOW OTHER COMMENTS: (test code = 8081) (NOTE) AIRPORT SECURITY SCREENER: (test code = 8101) Rosie Cruz LOCATION: (test code = 80637) (NOTE) CPT: (test code = 8140) (NOTE) Stuart GutierrezHPV HIGH RISK WITH GENOTYPE, [id number] 00:00:00* Test Item Value Reference Range Interpretation Comme nts HPV HIGH RISK INTERP (test c ode = 08528) NEGATIVE HPV 16 (test code = 06775) NEGATIVE HPV 18 (test code = 11110) NEGATIVE HPV, HR, OTHER GENOTYPES (te st code = 26893) NEGATIVE Stuart GutierrezTSH + FREE T4 [id number] 00:00:00* Test Item Value Reference Range Interpretation Comme nts TSH, THIRD GENERATION (test code = 2821) 1.380 UIU/ML FREE T4 (THYROXINE) (test co de = 2823) 1.18 NG/DL Stuart Mccullough AustinTSH + FREE T4 [id number] 00:00:00* Test Item Value Reference Range Interpretation Comme nts TSH, THIRD GENERATION (test code = 2821) 1.380 UIU/ML FREE T4 (THYROXINE) (test co de = 2823) 1.18 NG/DL Stuart Mccullough AustinTSH + FREE T4 [id number] 00:00:00* Test Item Value Reference Range Interpretation Comme nts TSH, THIRD GENERATION (test code = 2821) 1.380 UIU/ML FREE T4 (THYROXINE) (test co de = 2823) 1.18 NG/DL Stuart Mccullough AustinTSH + FREE T4 [id number] 00:00:00* Test Item Value Reference Range Interpretation Comme nts TSH, THIRD GENERATION (test code = 2821) 1.380 UIU/ML FREE T4 (THYROXINE) (test co de = 2823) 1.18 NG/DL Stuart GutierrezTSH + FREE T4 [id number] 00:00:00* Test Item Value Reference Range Interpretation Comme nts TSH, THIRD GENERATION (test code = 2821) 1.380 UIU/ML FREE T4 (THYROXINE) (test co de = 2823) 1.18 NG/DL Stuart GutierrezTSH + FREE T4 [id number] 00:00:00* Test Item Value Reference Range Interpretation Comme nts TSH, THIRD GENERATION (test code = 2821) 1.380 UIU/ML FREE T4 (THYROXINE) (test co de = 2823) 1.18 NG/DL Stuart GutierrezTSH + FREE T4 [id number] 00:00:00* Test Item Value Reference Range Interpretation Comme nts TSH, THIRD GENERATION (test code = 2821) 1.380 UIU/ML FREE T4 (THYROXINE) (test co de = 2823) 1.18 NG/DL Stuart GutierrezTSH + FREE T4 [id number] 00:00:00* Test Item Value Reference Range Interpretation Comme nts TSH, THIRD GENERATION (test code = 2821) 1.380 UIU/ML FREE T4 (THYROXINE) (test co de = 2823) 1.18 NG/DL Stuart GutierrezTSH + FREE T4 [id number] 00:00:00* Test Item Value Reference Range Interpretation Comme nts TSH, THIRD GENERATION (test code = 2821) 1.380 UIU/ML FREE T4 (THYROXINE) (test co de = 2823) 1.18 NG/DL Stuart GutierrezTROPONIN [id number] 01:28:19* Test Item Value Reference Range Interpretation Comme nts TROPONIN I (test code = 6024513954) 0.000 ng/mL <=0.034 CYRUS (test code = CYRUS) Reference (Normal) Range (defined by the 99th percentile reference limit): <= 0.034 ng/mL Note: Cardiac troponin begins to rise 3-4 hours after the onset of ischemia. Repeat in 4-6 hours if the sample was drawn within 3-4 hours of the onset of the symptom and found normal. Diagnosis of myocardial injury is made with acute changes in cTn concentrations with at least one serial sample above the 99th percentile upper reference limit (URL), taken together with the patient's clinical presentation. Biotin has been reported to cause a negative bias, interpret results relative to patient's use of biotin. Lab Interpretation (test code = 21827-2) Normal [id number] 01:25:38* Test Item Value Reference Range Interpretation Comme nts NT-proBNP (test code = 31982-3) 29 pg/mL <=125 Lab Interpretation (test cod e = 01068-6) Normal [facility]COMP[facility] METABOLIC PANEL ([id number])2023-04-07 01:17:57* Test Item Value Reference Range Interpretation Comme nts NA (test code = 5029958748) 139 mmol/L 135-145 K (test code = 1381485732) 3.5 mmol/L 3.5-5.0 CL (test code = 9884651366) 107 mmol/L 98-108 CO2 TOTAL (test code = 2281631087) 21 mmol/L 23-31 L AGAP (test code = 2888764444) 11 2-16 BUN (test code = 6357441610) 11 mg/dL 7-23 GLUCOSE (test code = 0224845144) 77 mg/dL 70-110 CREATININE (test code = 9904854830) 0.86 mg/dL 0.50-1.04 TOTAL BILI (test code = 7400268030) 0.5 mg/dL 0.1-1.1 CALCIUM (test code = 4294085100) 9.9 mg/dL 8.6-10.6 T PROTEIN (test code = 0167346253) 7.9 g/dL 6.3-8.2 ALBUMIN (test code = 1567159052) 4.6 g/dL 3.5-5.0 ALK PHOS (test code = 5548192476) 95 U/L 34-122 ALTv (test code = 1742-6) 21 U/L 5-35 AST(SGOT) (test code = 4358939664) 23 U/L 13-40 eGFR (test code = 00150-9) 81.4 mL/min/1.73m2 CKD-EPI eGFR (2020). Assuming creatinine has been stable day-to-day for at least three months, the eGFR indicates Category G2 (60 - 89 mL/min/1.73 m2) Lab Interpretation (test code = 69299-9) Abnormal [facility] THRMPLAS [id number] 01:12:01* Test Item Value Reference Range Interpretation Comme [facility] APTT Patient (test code = 3173-2) 32 26-36 CYRUS (test code = CYRUS) The [facility] patient population mean normal value for aPTT is 30 seconds. Lab Interpretation (test code = 92038-6) [facility] HospitalPROTHROMBIN TIME / [id number] 01:12:01* Test Item Value Reference Range Interpretation Comme [facility] PROTIME PATIENT (test code = 5964-2) 10.8 10.1-12.6 INR (test code = 6301-6) 0.9 Normal INR <1.1; Warfarin Therapeutic range 2.0 to 3.0 or 2.5 to 3.5, depending upon the indications. Lab Interpretation (test code = 03225-5) Normal [facility] HospitalCBC WITH [id number] 01:06:19* Test Item Value Reference Range Interpretation Comme [facility] WBC (test code = 6690-2) 6.83 4.30-11.10 RBC (test code = 789-8) 4.36 3.93-5.25 HGB (test code = 718-7) 12.7 g/dL 11.6-15.0 HCT (test code = 4544-3) 37.3 % 35.7-45.2 MCV (test code = 787-2) 85.6 fL 80.6-95.5 MCH (test code = 785-6) 29.1 pg 25.9-32.8 MCHC (test code = 786-4) 34.0 g/dL 31.6-35.1 RDW-SD (test code = 00734-7) 41.5 fL 39.0-49.9 RDW-CV (test code = 788-0) 13.4 % 12.0-15.5 PLT (test code = 777-3) 324 166-358 MPV (test code = 19552-1) 10.3 fL 9.5-12.9 NRBC/100 WBC (test code = 4226202237) 0.0 0.0-10.0 NRBC x10^3 (test code = 3559645637) See_Comment [Automated me ssage] The system which generated this result transmitted reference range: 10*3/?L. The reference range was not used to interpret this result as normal/abnormal. GRAN MAT (NEUT) % (test code = 770-8) 63.5 % IMM GRAN % (test code = 7760005413) 0.60 % LYMPH % (test code = 736-9) 23.3 % MONO % (test code = 5905-5) 9.1 % EOS % (test code = 713-8) 3.1 % BASO % (test code = 706-2) 0.4 % GRAN MAT x10^3(ANC) (test code = 2207928074) 4.34 10*3/uL 1.88-7.09 IMM GRAN x10^3 (test code = 6892394384) 0.04 10*3/uL 0.00-0.06 LYMPH x10^3 (test code = 731-0) 1.59 10*3/uL 1.32-3.29 MONO x10^3 (test code = 742-7) 0.62 10*3/uL 0.33-0.92 EOS x10^3 (test code = 711-2) 0.21 10*3/uL 0.03-0.39 BASO x10^3 (test code = 704-7) 0.03 10*3/uL 0.01-0.[address]XR CHEST 2 [id number] 00:39:47Chest two views CLINICAL INDICATION: ?dizziness PHYSICIAN NAME: CHANELLE JULESSHANE Technique: ? PA and Lateral views of the chest. ? COMPARISON: ?Chest x-ray dated 11/30/2020 FINDINGS: There is no pleural effusion, pneumothorax, or confluentinfiltrate. Mild subsegmental atelectasis at the lung bases.The cardiacsilhouette is within normal limits. There is no failure pattern. [facility], THIRD [id number] 00:00:00* Test Item Value Reference Range Interpretation Comme nts TSH, THIRD GENERATION (test code = 2821) 1.130 UIU/ML Stuart GutierrezTHYROID I PROFILE (TU,T4,FTI) [ADDED]2022-11-13 00:00:00* Test Item Value Reference Range Interpretation Comme nts T-UPTAKE (test code = 2817) 30.2 % THYROX. BIND. CAPAC. (test c ode = 70286) 1.1 T4 (THYROXINE) (test code = 2819) 6.7 UG/DL CORRECTED T4 (FTI) (test cod e = 2820) 6.1 UG/DL Stuart GutierrezPROLACTIN [ADDED]2022-11-13 00:00:00* Test Item Value Reference Range Interpretation Comme nts PROLACTIN (test code = 2800) 21.7 NG/ML Stuart GutierrezCOMPREHENSIVE METABOLIC [id number] 00:00:00* Test Item Value Reference Range Interpretation Comme nts GLUCOSE (test code = 2217) 107 MG/DL BUN (test code = 2208) 11 MG/DL CREATININE (test code = 2214) 0.77 MG/DL eGFR (2020 CKD-EPI) (test co de = 30687) 93 ML/MIN/1.73 CALC BUN/CREAT (test code = 2235) 14 RATIO SODIUM (test code = 2231) 141 MEQ/L POTASSIUM (test code = 2228) 4.5 MEQ/L CHLORIDE (test code = 2215) 102 MEQ/L CARBON DIOXIDE (test code = 2206) 27 MEQ/L CALCIUM (test code = 2209) 10.3 MG/DL PROTEIN, TOTAL (test code = 2229) 7.1 G/DL ALBUMIN (test code = 2201) 4.9 G/DL CALC GLOBULIN (test code = 2240) 2.2 G/DL CALC A/G RATIO (test code = 2234) 2.2 RATIO BILIRUBIN, TOTAL (test code = 2207) 0.3 MG/DL ALKALINE PHOSPHATASE (test code = 2204) 91 U/L AST (test code = 2218) 23 U/L ALT (test code = 2219) 22 U/L Stuart GutierrezHEMOGLOBIN [id number] 00:00:00* Test Item Value Reference Range Interpretation Comme nts HEMOGLOBIN A1c (test code = 99303) 5.6 % Stuart GutierrezALBUMIN/CREATININE RATIO, RANDOM [id number] 00:00:00* Test Item Value Reference Range Interpretation Comme nts CREATININE, URINE, CONC. (te st code = 2072) 113.8 MG/DL ALBUMIN, URINE, RANDOM (test code = 00072) 0.5 MG/DL CALC ALBUMIN/CREAT, RND (vinay t code = 23605) 4 MG/G Stuart GutierrezLIPID [id number] 00:00:00* Test Item Value Reference Range Interpretation Comme nts CHOLESTEROL (test code = 2210) 179 MG/DL TRIGLYCERIDES (test code = 2232) 67 MG/DL HDL CHOLESTEROL (test code = 2220) 74 MG/DL CALC LDL CHOL (test code = 2237) 90 MG/DL RISK RATIO LDL/HDL (test cod e = 2238) 1.22 RATIO Stuart GutierrezTSH, THIRD [id number] 00:00:00* Test Item Value Reference Range Interpretation Comme nts TSH, THIRD GENERATION (test code = 2821) 1.130 UIU/ML Stuart GutierrezTHYROID I PROFILE (TU,T4,FTI) [ADDED]2022-11-13 00:00:00* Test Item Value Reference Range Interpretation Comme nts T-UPTAKE (test code = 2817) 30.2 % THYROX. BIND. CAPAC. (test c ode = 19313) 1.1 T4 (THYROXINE) (test code = 2819) 6.7 UG/DL CORRECTED T4 (FTI) (test cod e = 2820) 6.1 UG/DL Stuart GutierrezPROLACTIN [ADDED]2022-11-13 00:00:00* Test Item Value Reference Range Interpretation Comme nts PROLACTIN (test code = 2800) 21.7 NG/ML Stuart GutierrezCOMPREHENSIVE METABOLIC [id number] 00:00:00* Test Item Value Reference Range Interpretation Comme nts GLUCOSE (test code = 2217) 107 MG/DL BUN (test code = 2208) 11 MG/DL CREATININE (test code = 2214) 0.77 MG/DL eGFR (2020 CKD-EPI) (test co de = 83076) 93 ML/MIN/1.73 CALC BUN/CREAT (test code = 2235) 14 RATIO SODIUM (test code = 2231) 141 MEQ/L POTASSIUM (test code = 2228) 4.5 MEQ/L CHLORIDE (test code = 2215) 102 MEQ/L CARBON DIOXIDE (test code = 2206) 27 MEQ/L CALCIUM (test code = 2209) 10.3 MG/DL PROTEIN, TOTAL (test code = 2229) 7.1 G/DL ALBUMIN (test code = 2201) 4.9 G/DL CALC GLOBULIN (test code = 2240) 2.2 G/DL CALC A/G RATIO (test code = 2234) 2.2 RATIO BILIRUBIN, TOTAL (test code = 2207) 0.3 MG/DL ALKALINE PHOSPHATASE (test code = 220) 91 U/L AST (test code = 2218) 23 U/L ALT (test code = 2219) 22 U/L Stuart GutierrezHEMOGLOBIN [id number] 00:00:00* Test Item Value Reference Range Interpretation Comme [facility] HEMOGLOBIN A1c (test code = 82032) 5.6 % Stuart GutierrezALBUMIN/CREATININE RATIO, RANDOM [id number] 00:00:00* Test Item Value Reference Range Interpretation Comme [facility] CREATININE, URINE, CONC. (te st code = 2072) 113.8 MG/DL ALBUMIN, URINE, RANDOM (test code = 78860) 0.5 MG/DL CALC ALBUMIN/CREAT, RND (vinay t code = 05128) 4 MG/G Stuart GutierrezLIPID [id number] 00:00:00* Test Item Value Reference Range Interpretation Comme nts CHOLESTEROL (test code = 2210) 179 MG/DL TRIGLYCERIDES (test code = 2232) 67 MG/DL HDL CHOLESTEROL (test code = 2220) 74 MG/DL CALC LDL CHOL (test code = 2237) 90 MG/DL RISK RATIO LDL/HDL (test cod e = 2238) 1.22 RATIO Stuart GutierrezTSH, THIRD [id number] 00:00:00* Test Item Value Reference Range Interpretation Comme nts TSH, THIRD GENERATION (test code = 2821) 1.130 UIU/ML Stuart GutierrezTHYROID I PROFILE (TU,T4,FTI) [ADDED]2022-11-13 00:00:00* Test Item Value Reference Range Interpretation Comme nts T-UPTAKE (test code = 2817) 30.2 % THYROX. BIND. CAPAC. (test c ode = 16405) 1.1 T4 (THYROXINE) (test code = 2819) 6.7 UG/DL CORRECTED T4 (FTI) (test cod e = 2820) 6.1 UG/DL Stuart GutierrezPROLACTIN [ADDED]2022-11-13 00:00:00* Test Item Value Reference Range Interpretation Comme nts PROLACTIN (test code = 2800) 21.7 NG/ML Stuart GutierrezCOMPREHENSIVE METABOLIC [id number] 00:00:00* Test Item Value Reference Range Interpretation Comme nts GLUCOSE (test code = 2217) 107 MG/DL BUN (test code = 2208) 11 MG/DL CREATININE (test code = 2214) 0.77 MG/DL eGFR (2020 CKD-EPI) (test co de = 85168) 93 ML/MIN/1.73 CALC BUN/CREAT (test code = 2235) 14 RATIO SODIUM (test code = 2231) 141 MEQ/L POTASSIUM (test code = 2228) 4.5 MEQ/L CHLORIDE (test code = 2215) 102 MEQ/L CARBON DIOXIDE (test code = 2206) 27 MEQ/L CALCIUM (test code = 2209) 10.3 MG/DL PROTEIN, TOTAL (test code = 2229) 7.1 G/DL ALBUMIN (test code = 2201) 4.9 G/DL CALC GLOBULIN (test code = 2240) 2.2 G/DL CALC A/G RATIO (test code = 2234) 2.2 RATIO BILIRUBIN, TOTAL (test code = 2207) 0.3 MG/DL ALKALINE PHOSPHATASE (test code = 2204) 91 U/L AST (test code = 2218) 23 U/L ALT (test code = 2219) 22 U/L Stuart GutierrezHEMOGLOBIN [id number] 00:00:00* Test Item Value Reference Range Interpretation Comme [facility] HEMOGLOBIN A1c (test code = 87548) 5.6 % Stuart GutierrezALBUMIN/CREATININE RATIO, RANDOM [id number] 00:00:00* Test Item Value Reference Range Interpretation Comme [facility] CREATININE, URINE, CONC. (te st code = 2072) 113.8 MG/DL ALBUMIN, URINE, RANDOM (test code = 97891) 0.5 MG/DL CALC ALBUMIN/CREAT, RND (vinay t code = 73842) 4 MG/G Stuart GutierrezLIPID [id number] 00:00:00* Test Item Value Reference Range Interpretation Comme nts CHOLESTEROL (test code = 2210) 179 MG/DL TRIGLYCERIDES (test code = 2232) 67 MG/DL HDL CHOLESTEROL (test code = 2220) 74 MG/DL CALC LDL CHOL (test code = 2237) 90 MG/DL RISK RATIO LDL/HDL (test cod e = 2238) 1.22 RATIO Stuart GutierrezTSH, THIRD [id number] 00:00:00* Test Item Value Reference Range Interpretation Comme [facility] TSH, THIRD GENERATION (test code = 2821) 1.130 UIU/ML Stuart GutierrezTHYROID I PROFILE (TU,T4,FTI) [ADDED]2022-11-13 00:00:00* Test Item Value Reference Range Interpretation Comme nts T-UPTAKE (test code = 2817) 30.2 % THYROX. BIND. CAPAC. (test c ode = 90950) 1.1 T4 (THYROXINE) (test code = 2819) 6.7 UG/DL CORRECTED T4 (FTI) (test cod e = 2820) 6.1 UG/DL Stuart GutierrezPROLACTIN [ADDED]2022-11-13 00:00:00* Test Item Value Reference Range Interpretation Comme nts PROLACTIN (test code = 2800) 21.7 NG/ML Stuart GutierrezCOMPREHENSIVE METABOLIC [id number] 00:00:00* Test Item Value Reference Range Interpretation Comme nts GLUCOSE (test code = 2217) 107 MG/DL BUN (test code = 2208) 11 MG/DL CREATININE (test code = 2214) 0.77 MG/DL eGFR (2020 CKD-EPI) (test co de = 44396) 93 ML/MIN/1.73 CALC BUN/CREAT (test code = 2235) 14 RATIO SODIUM (test code = 2231) 141 MEQ/L POTASSIUM (test code = 2228) 4.5 MEQ/L CHLORIDE (test code = 2215) 102 MEQ/L CARBON DIOXIDE (test code = 2206) 27 MEQ/L CALCIUM (test code = 2209) 10.3 MG/DL PROTEIN, TOTAL (test code = 2229) 7.1 G/DL ALBUMIN (test code = 2201) 4.9 G/DL CALC GLOBULIN (test code = 2240) 2.2 G/DL CALC A/G RATIO (test code = 2234) 2.2 RATIO BILIRUBIN, TOTAL (test code = 2207) 0.3 MG/DL ALKALINE PHOSPHATASE (test code = 2204) 91 U/L AST (test code = 2218) 23 U/L ALT (test code = 2219) 22 U/L Stuart GutierrezHEMOGLOBIN [id number] 00:00:00* Test Item Value Reference Range Interpretation Comme azra HEMOGLOBIN A1c (test code = 92051) 5.6 % Stuart GutierrezALBUMIN/CREATININE RATIO, RANDOM [id number] 00:00:00* Test Item Value Reference Range Interpretation Comme nts CREATININE, URINE, CONC. (te st code = 2072) 113.8 MG/DL ALBUMIN, URINE, RANDOM (test code = 41812) 0.5 MG/DL CALC ALBUMIN/CREAT, RND (vinay t code = 59393) 4 MG/G Stuart GutierrezLIPID [id number] 00:00:00* Test Item Value Reference Range Interpretation Comme nts CHOLESTEROL (test code = 2210) 179 MG/DL TRIGLYCERIDES (test code = 2232) 67 MG/DL HDL CHOLESTEROL (test code = 2220) 74 MG/DL CALC LDL CHOL (test code = 2237) 90 MG/DL RISK RATIO LDL/HDL (test cod e = 2238) 1.22 RATIO Stuart GutierrezTSH, THIRD [id number] 00:00:00* Test Item Value Reference Range Interpretation Comme nts TSH, THIRD GENERATION (test code = 2821) 1.130 UIU/ML Stuart GutierrezTHYROID I PROFILE (TU,T4,FTI) [ADDED]2022-11-13 00:00:00* Test Item Value Reference Range Interpretation Comme nts T-UPTAKE (test code = 2817) 30.2 % THYROX. BIND. CAPAC. (test c ode = 62799) 1.1 T4 (THYROXINE) (test code = 2819) 6.7 UG/DL CORRECTED T4 (FTI) (test cod e = 2820) 6.1 UG/DL Stuart GutierrezPROLACTIN [ADDED]2022-11-13 00:00:00* Test Item Value Reference Range Interpretation Comme nts PROLACTIN (test code = 2800) 21.7 NG/ML Stuart GutierrezCOMPREHENSIVE METABOLIC [id number] 00:00:00* Test Item Value Reference Range Interpretation Comme nts GLUCOSE (test code = 2217) 107 MG/DL BUN (test code = 2208) 11 MG/DL CREATININE (test code = 2214) 0.77 MG/DL eGFR (2020 CKD-EPI) (test co de = 23388) 93 ML/MIN/1.73 CALC BUN/CREAT (test code = 2235) 14 RATIO SODIUM (test code = 2231) 141 MEQ/L POTASSIUM (test code = 2228) 4.5 MEQ/L CHLORIDE (test code = 2215) 102 MEQ/L CARBON DIOXIDE (test code = 2206) 27 MEQ/L CALCIUM (test code = 2209) 10.3 MG/DL PROTEIN, TOTAL (test code = 2229) 7.1 G/DL ALBUMIN (test code = 2201) 4.9 G/DL CALC GLOBULIN (test code = 2240) 2.2 G/DL CALC A/G RATIO (test code = 2234) 2.2 RATIO BILIRUBIN, TOTAL (test code = 2207) 0.3 MG/DL ALKALINE PHOSPHATASE (test code = 2204) 91 U/L AST (test code = 2218) 23 U/L ALT (test code = 2219) 22 U/L Stuart GutierrezHEMOGLOBIN [id number] 00:00:00* Test Item Value Reference Range Interpretation Comme azra HEMOGLOBIN A1c (test code = 13632) 5.6 % Stuart GutierrezALBUMIN/CREATININE RATIO, RANDOM [id number] 00:00:00* Test Item Value Reference Range Interpretation Comme nts CREATININE, URINE, CONC. (te st code = 2072) 113.8 MG/DL ALBUMIN, URINE, RANDOM (test code = 90950) 0.5 MG/DL CALC ALBUMIN/CREAT, RND (vinay t code = 49371) 4 MG/G Stuart GutierrezLIPID [id number] 00:00:00* Test Item Value Reference Range Interpretation Comme nts CHOLESTEROL (test code = 2210) 179 MG/DL TRIGLYCERIDES (test code = 2232) 67 MG/DL HDL CHOLESTEROL (test code = 2220) 74 MG/DL CALC LDL CHOL (test code = 2237) 90 MG/DL RISK RATIO LDL/HDL (test cod e = 2238) 1.22 RATIO Stuart JonesH, THIRD [id number] 00:00:00* Test Item Value Reference Range Interpretation Comme nts TSH, THIRD GENERATION (test code = 2821) 1.130 UIU/ML Stuart GutierrezTHYROID I PROFILE (TU,T4,FTI) [ADDED]2022-11-13 00:00:00* Test Item Value Reference Range Interpretation Comme nts T-UPTAKE (test code = 2817) 30.2 % THYROX. BIND. CAPAC. (test c ode = 98013) 1.1 T4 (THYROXINE) (test code = 2819) 6.7 UG/DL CORRECTED T4 (FTI) (test cod e = 2820) 6.1 UG/DL Stuart GutierrezPROLACTIN [ADDED]2022-11-13 00:00:00* Test Item Value Reference Range Interpretation Comme nts PROLACTIN (test code = 2800) 21.7 NG/ML Stuart GutierrezCOMPREHENSIVE METABOLIC [id number] 00:00:00* Test Item Value Reference Range Interpretation Comme nts GLUCOSE (test code = 2217) 107 MG/DL BUN (test code = 2208) 11 MG/DL CREATININE (test code = 2214) 0.77 MG/DL eGFR (2020 CKD-EPI) (test co de = 72468) 93 ML/MIN/1.73 CALC BUN/CREAT (test code = 2235) 14 RATIO SODIUM (test code = 2231) 141 MEQ/L POTASSIUM (test code = 2228) 4.5 MEQ/L CHLORIDE (test code = 2215) 102 MEQ/L CARBON DIOXIDE (test code = 2206) 27 MEQ/L CALCIUM (test code = 2209) 10.3 MG/DL PROTEIN, TOTAL (test code = 2229) 7.1 G/DL ALBUMIN (test code = 2201) 4.9 G/DL CALC GLOBULIN (test code = 2240) 2.2 G/DL CALC A/G RATIO (test code = 2234) 2.2 RATIO BILIRUBIN, TOTAL (test code = 2207) 0.3 MG/DL ALKALINE PHOSPHATASE (test code = 2204) 91 U/L AST (test code = 2218) 23 U/L ALT (test code = 2219) 22 U/L Stuart GutierrezHEMOGLOBIN [id number] 00:00:00* Test Item Value Reference Range Interpretation Comme azra HEMOGLOBIN A1c (test code = 45257) 5.6 % Stuart GutierrezALBUMIN/CREATININE RATIO, RANDOM [id number] 00:00:00* Test Item Value Reference Range Interpretation Comme azra CREATININE, URINE, CONC. (te st code = 2072) 113.8 MG/DL ALBUMIN, URINE, RANDOM (test code = 08864) 0.5 MG/DL CALC ALBUMIN/CREAT, RND (vinay t code = 99657) 4 MG/G Stuart GutierrezLIPID [id number] 00:00:00* Test Item Value Reference Range Interpretation Comme nts CHOLESTEROL (test code = 2210) 179 MG/DL TRIGLYCERIDES (test code = 2232) 67 MG/DL HDL CHOLESTEROL (test code = 2220) 74 MG/DL CALC LDL CHOL (test code = 2237) 90 MG/DL RISK RATIO LDL/HDL (test cod e = 2238) 1.22 RATIO Stuart GutierrezTSH, THIRD [id number] 00:00:00* Test Item Value Reference Range Interpretation Comme azra TSH, THIRD GENERATION (test code = 2821) 1.130 UIU/ML Stuart GutierrezTHYROID I PROFILE (TU,T4,FTI) [ADDED]2022-11-13 00:00:00* Test Item Value Reference Range Interpretation Comme nts T-UPTAKE (test code = 2817) 30.2 % THYROX. BIND. CAPAC. (test c ode = 18897) 1.1 T4 (THYROXINE) (test code = 2819) 6.7 UG/DL CORRECTED T4 (FTI) (test cod e = 2820) 6.1 UG/DL Stuart GutierrezPROLACTIN [ADDED]2022-11-13 00:00:00* Test Item Value Reference Range Interpretation Comme nts PROLACTIN (test code = 2800) 21.7 NG/ML Stuart GutierrezCOMPREHENSIVE METABOLIC [id number] 00:00:00* Test Item Value Reference Range Interpretation Comme nts GLUCOSE (test code = 2216) 107 MG/DL BUN (test code = 2208) 11 MG/DL CREATININE (test code = 2214) 0.77 MG/DL eGFR (2020 CKD-EPI) (test co de = 08774) 93 ML/MIN/1.73 CALC BUN/CREAT (test code = 2235) 14 RATIO SODIUM (test code = 2231) 141 MEQ/L POTASSIUM (test code = 2228) 4.5 MEQ/L CHLORIDE (test code = 2215) 102 MEQ/L CARBON DIOXIDE (test code = 2206) 27 MEQ/L CALCIUM (test code = 2209) 10.3 MG/DL PROTEIN, TOTAL (test code = 222) 7.1 G/DL ALBUMIN (test code = 220) 4.9 G/DL CALC GLOBULIN (test code = 2240) 2.2 G/DL CALC A/G RATIO (test code = 2234) 2.2 RATIO BILIRUBIN, TOTAL (test code = 2206) 0.3 MG/DL ALKALINE PHOSPHATASE (test code = 2203) 91 U/L AST (test code = 221) 23 U/L ALT (test code = 2219) 22 U/L Stuart GutierrezHEMOGLOBIN [id number] 00:00:00* Test Item Value Reference Range Interpretation Comme nts HEMOGLOBIN A1c (test code = 86826) 5.6 % Stuart GutierrezALBUMIN/CREATININE RATIO, RANDOM [id number] 00:00:00* Test Item Value Reference Range Interpretation Comme nts CREATININE, URINE, CONC. (te st code = 2072) 113.8 MG/DL ALBUMIN, URINE, RANDOM (test code = 66410) 0.5 MG/DL CALC ALBUMIN/CREAT, RND (vinay t code = 20844) 4 MG/G Stuart GutierrezLIPID [id number] 00:00:00* Test Item Value Reference Range Interpretation Comme nts CHOLESTEROL (test code = 2210) 179 MG/DL TRIGLYCERIDES (test code = 2232) 67 MG/DL HDL CHOLESTEROL (test code = 2220) 74 MG/DL CALC LDL CHOL (test code = 2237) 90 MG/DL RISK RATIO LDL/HDL (test cod e = 2238) 1.22 RATIO Stuart GutierrezTSH, THIRD [id number] 00:00:00* Test Item Value Reference Range Interpretation Comme azra TSH, THIRD GENERATION (test code = 2821) 1.130 UIU/ML Stuart GutierrezTHYROID I PROFILE (TU,T4,FTI) [ADDED]2022-11-13 00:00:00* Test Item Value Reference Range Interpretation Comme azra T-UPTAKE (test code = 2817) 30.2 % THYROX. BIND. CAPAC. (test c ode = 09958) 1.1 T4 (THYROXINE) (test code = 2819) 6.7 UG/DL CORRECTED T4 (FTI) (test cod e = 2820) 6.1 UG/DL Stuart GutierrezPROLACTIN [ADDED]2022-11-13 00:00:00* Test Item Value Reference Range Interpretation Comme azra PROLACTIN (test code = 2800) 21.7 NG/ML Stuart GutierrezCOMPREHENSIVE METABOLIC [id number] 00:00:00* Test Item Value Reference Range Interpretation Comme nts GLUCOSE (test code = 2217) 107 MG/DL BUN (test code = 2208) 11 MG/DL CREATININE (test code = 2214) 0.77 MG/DL eGFR (2020 CKD-EPI) (test co de = 98119) 93 ML/MIN/1.73 CALC BUN/CREAT (test code = 2235) 14 RATIO SODIUM (test code = 2231) 141 MEQ/L POTASSIUM (test code = 2228) 4.5 MEQ/L CHLORIDE (test code = 2215) 102 MEQ/L CARBON DIOXIDE (test code = 2206) 27 MEQ/L CALCIUM (test code = 2209) 10.3 MG/DL PROTEIN, TOTAL (test code = 2229) 7.1 G/DL ALBUMIN (test code = 2201) 4.9 G/DL CALC GLOBULIN (test code = 2240) 2.2 G/DL CALC A/G RATIO (test code = 2234) 2.2 RATIO BILIRUBIN, TOTAL (test code = 2207) 0.3 MG/DL ALKALINE PHOSPHATASE (test code = 2204) 91 U/L AST (test code = 2218) 23 U/L ALT (test code = 2219) 22 U/L Stuart GutierrezHEMOGLOBIN [id number] 00:00:00* Test Item Value Reference Range Interpretation Comme nts HEMOGLOBIN A1c (test code = 62645) 5.6 % Stuart GutierrezALBUMIN/CREATININE RATIO, RANDOM [id number] 00:00:00* Test Item Value Reference Range Interpretation Comme nts CREATININE, URINE, CONC. (te st code = 2072) 113.8 MG/DL ALBUMIN, URINE, RANDOM (test code = 74371) 0.5 MG/DL CALC ALBUMIN/CREAT, RND (vinay t code = 24194) 4 MG/G Stuart GutierrezLIPID [id number] 00:00:00* Test Item Value Reference Range Interpretation Comme nts CHOLESTEROL (test code = 2210) 179 MG/DL TRIGLYCERIDES (test code = 2232) 67 MG/DL HDL CHOLESTEROL (test code = 2220) 74 MG/DL CALC LDL CHOL (test code = 2237) 90 MG/DL RISK RATIO LDL/HDL (test cod e = 2238) 1.22 RATIO Stuart GutierrezTSH, THIRD [id number] 00:00:00* Test Item Value Reference Range Interpretation Comme azra TSH, THIRD GENERATION (test code = 2821) 1.130 UIU/ML Stuart GutierrezTHYROID I PROFILE (TU,T4,FTI) [ADDED]2022-11-13 00:00:00* Test Item Value Reference Range Interpretation Comme nts T-UPTAKE (test code = 2817) 30.2 % THYROX. BIND. CAPAC. (test c ode = 84694) 1.1 T4 (THYROXINE) (test code = 2819) 6.7 UG/DL CORRECTED T4 (FTI) (test cod e = 2820) 6.1 UG/DL Stuart GutierrezPROLACTIN [ADDED]2022-11-13 00:00:00* Test Item Value Reference Range Interpretation Comme nts PROLACTIN (test code = 2800) 21.7 NG/ML Stuart GutierrezCOMPREHENSIVE METABOLIC [id number] 00:00:00* Test Item Value Reference Range Interpretation Comme nts GLUCOSE (test code = 2217) 107 MG/DL BUN (test code = 2208) 11 MG/DL CREATININE (test code = 2214) 0.77 MG/DL eGFR (2020 CKD-EPI) (test co de = 73988) 93 ML/MIN/1.73 CALC BUN/CREAT (test code = 2235) 14 RATIO SODIUM (test code = 2231) 141 MEQ/L POTASSIUM (test code = 2228) 4.5 MEQ/L CHLORIDE (test code = 2215) 102 MEQ/L CARBON DIOXIDE (test code = 2206) 27 MEQ/L CALCIUM (test code = 2209) 10.3 MG/DL PROTEIN, TOTAL (test code = 2229) 7.1 G/DL ALBUMIN (test code = 2201) 4.9 G/DL CALC GLOBULIN (test code = 2240) 2.2 G/DL CALC A/G RATIO (test code = 2234) 2.2 RATIO BILIRUBIN, TOTAL (test code = 2207) 0.3 MG/DL ALKALINE PHOSPHATASE (test code = 2204) 91 U/L AST (test code = 2218) 23 U/L ALT (test code = 2219) 22 U/L Stuart GutierrezHEMOGLOBIN [id number] 00:00:00* Test Item Value Reference Range Interpretation Comme azra HEMOGLOBIN A1c (test code = 45023) 5.6 % Stuart GutierrezALBUMIN/CREATININE RATIO, RANDOM [id number] 00:00:00* Test Item Value Reference Range Interpretation Comme nts CREATININE, URINE, CONC. (te st code = 2072) 113.8 MG/DL ALBUMIN, URINE, RANDOM (test code = 69948) 0.5 MG/DL CALC ALBUMIN/CREAT, RND (vinay t code = 99017) 4 MG/G Stuart GutierrezLIPID [id number] 00:00:00* Test Item Value Reference Range Interpretation Comme nts CHOLESTEROL (test code = 2210) 179 MG/DL TRIGLYCERIDES (test code = 2232) 67 MG/DL HDL CHOLESTEROL (test code = 2220) 74 MG/DL CALC LDL CHOL (test code = 2237) 90 MG/DL RISK RATIO LDL/HDL (test cod e = 2238) 1.22 RATIO Stuart GutierrezCULTURE, [id number] 00:00:00* Test Item Value Reference Range Interpretation Comme nts CULTURE, URINE (test code = 87116) SPECIMEN NUMBER: [id number] Stuart GutierrezCULTURE, [id number] 00:00:00* Test Item Value Reference Range Interpretation Comme nts CULTURE, URINE (test code = 27703) SPECIMEN NUMBER: [id number] Stuart Diop, [id number] 00:00:00* Test Item Value Reference Range Interpretation Comme nts CULTURE, URINE (test code = 31677) SPECIMEN NUMBER: [id number] Stuart Diop [id number] 00:00:00* Test Item Value Reference Range Interpretation Comme nts CULTURE, URINE (test code = 33294) SPECIMEN NUMBER: [id number] Stuart Diop [id number] 00:00:00* Test Item Value Reference Range Interpretation Comme nts CULTURE, URINE (test code = 99818) SPECIMEN NUMBER: [id number] Stuart Diop [id number] 00:00:00* Test Item Value Reference Range Interpretation Comme nts CULTURE, URINE (test code = 72235) SPECIMEN NUMBER: [id number] Stuart Diop [id number] 00:00:00* Test Item Value Reference Range Interpretation Comme nts CULTURE, URINE (test code = 92952) SPECIMEN NUMBER: [id number] Stuart Diop [id number] 00:00:00* Test Item Value Reference Range Interpretation Comme nts CULTURE, URINE (test code = 15904) SPECIMEN NUMBER: [id number] Stuart Diop [id number] 00:00:00* Test Item Value Reference Range Interpretation Comme nts CULTURE, URINE (test code = 15285) SPECIMEN NUMBER: [id number] Stuart [facility]rezT[facility]P. METABOLIC PANEL ([id number])2022-01-05 02:27:07* Test Item Value Reference Range Interpretation Comme nts NA (test code = 0075273713) 141 mmol/L 135-145 K (test code = 2151184963) 4.1 mmol/L 3.5-5.0 CL (test code = 9730617440) 99 mmol/L 98-108 CO2 TOTAL (test code = 7313875026) 33 mmol/L 23-31 H AGAP (test code = 7466162714) 2-16 BUN (test code = 9399914883) 12 mg/dL 7-23 GLUCOSE (test code = 1379655100) 94 mg/dL 70-110 CREATININE (test code = 2916266962) 0.81 mg/dL 0.50-1.04 TOTAL BILI (test code = 8945186731) 0.4 mg/dL 0.1-1.1 CALCIUM (test code = 3106893294) 10.8 mg/dL 8.6-10.6 H T PROTEIN (test code = 8495632159) 8.4 g/dL 6.3-8.2 H ALBUMIN (test code = 9221026505) 5.2 g/dL 3.5-5.0 H ALK PHOS (test code = 9176816544) 97 U/L 34-122 ALTv (test code = 1742-6) 21 U/L 5-35 AST(SGOT) (test code = 2242901993) 23 U/L 13-40 eGFR (test code = 5461199122) mL/min/1.73m2 CYRUS (test code = CYRUS) Association of Glomerular Filtration Rate (GFR) and Staging of Kidney Disease* + --+ --+ ------+| GFR (mL/min/1.73 m2) ?| With Kidney Damage ?| ?Without Kidney Damage+ --------+ --------+ +| ?>90 ?| ?Stage one ?| ? Normal ?+ ---+ ---+ -------+| ?60-89 ?| ?Stage two ?| ? Decreased GFR ? + --+ --+ ------+| ?30-59 ?| ?Stage three ?| ? Stage three ? + --+ --+ ------+| ?15-29 ?| ?Stage four ? | ? Stage four ?+ ---+ ---+ -------+| ?<15 (or dialysis) ? ?| ?Stage five ? | ? Stage five ?+ ---+ ---+ -------+ *Each stage assumes the associated GFR level has been in effect for at least three months. ?Stages 1 to 5, with or without kidney disease, indicate chronic kidney disease. Notes: Determination of stages one and two (with eGFR >59mL/min/1.73 m2) requires estimation of kidney damage for at least three months as defined by structural or functional abnormalities of the kidney, manifested by either:Pathological abnormalities or Markers of kidney damage (including abnormalities in the composition of the blood or urine or abnormalities in imaging tests). Lab Interpretation (test code = 45346-9) Abnormal [facility] WITH [id number] 02:13:43* Test Item Value Reference Range Interpretation Comme nts WBC (test code = 6690-2) See_Comment [Automated messa ge] The system which generated this result transmitted reference range: 4.30 - 11.10 10*3/?L. The reference range was not used to interpret this result as normal/abnormal. RBC (test code = 789-8) See_Comment [Automated messa ge] The system which generated this result transmitted reference range: 3.93 - 5.25 10*6/?L. The reference range was not used to interpret this result as normal/abnormal. HGB (test code = 718-7) 14.1 g/dL 11.6-15.0 HCT (test code = 4544-3) 41.7 % 35.7-45.2 MCV (test code = 787-2) 83.7 fL 80.6-95.5 MCH (test code = 785-6) 28.3 pg 25.9-32.8 MCHC (test code = 786-4) 33.8 g/dL 31.6-35.1 RDW-SD (test code = 87057-4) 43.5 fL 39.0-49.9 RDW-CV (test code = 788-0) 14.2 % 12.0-15.5 PLT (test code = 777-3) See_Comment H [Automated messa ge] The system which generated this result transmitted reference range: 166 - 358 10*3/?L. The reference range was not used to interpret this result as normal/abnormal. MPV (test code = 28108-2) 10.0 fL 9.5-12.9 NRBC/100 WBC (test code = 0643378161) See_Comment [Automated [place] ssage] The system which generated this result transmitted reference range: 0.0 - 10.0 /100 WBCs. The reference range was not used to interpret this result as normal/abnormal. NRBC x10^3 (test code = 8677049801) See_Comment [Automated messa ge] The system which generated this result transmitted reference range: 10*3/?L. The reference range was not used to interpret this result as normal/abnormal. GRAN MAT (NEUT) % (test code = 770-8) 70.4 % IMM GRAN % (test code = 0051260929) 0.40 % LYMPH % (test code = 736-9) 21.3 % MONO % (test code = 5905-5) 6.0 % EOS % (test code = 713-8) 1.4 % BASO % (test code = 706-2) 0.5 % GRAN MAT x10^3(ANC) (test code = 2323164376) 7.69 10*3/uL 1.88-7.09 H IMM GRAN x10^3 (test code = 5076379498) 0.04 10*3/uL 0.00-0.06 LYMPH x10^3 (test code = 731-0) 2.32 10*3/uL 1.32-3.29 MONO x10^3 (test code = 742-7) 0.66 10*3/uL 0.33-0.92 EOS x10^3 (test code = 711-2) 0.15 10*3/uL 0.03-0.39 BASO x10^3 (test code = 704-7) 0.05 10*3/uL 0.01-0.07 Lab Interpretation (test code = 75625-1) [facility] [id number]:00:[facility]* Test Item Value Reference Range Interpretation Comme nts POCT PREG (test code = 1605) negative On board controls acceptable with C Line (test code = 3574) positive POCT PREG LOT # (test code = 3575) [id number] POCT PREG TEST DATE ( test code = 3576) 05/26/2023 Lab Interpretation (test cod e = 78397-6) Normal [facility] Notes Date/Time Note Provider Source [facility]2025-02-06 00:00:00 [facility]2025-01-03 00:00:00 [facility]2024-11-18 00:00:00 [facility]2024-11-16 00:00:00 Stuart F. [facility]2024-11-15 00:00:00 Stuart Casas [facility]2024-10-11 00:00:00 Stuart Casas [facility]2024-09-13 00:00:00 Stuart Casas [facility]2024-08-17 00:00:00 Stuart Casas [facility]2024-02-10 22:17:44 Pt given printed and verbal discharge instructions regarding dizziness/RUE pain/headache, encouraged hydration, Prescriptions sent to pt's pharmacy Discussed ibuprofen and to take with food to avoid GI distress, alternate with Tylenol to help with pain and/or fever Discussed robaxin side affects and to avoid driving/operating machinery/or engaging in activities requiring alertness while taking. Pt verbalized understanding of instructions,pt encouraged to follow up with pcp Advised to seek medical attention for new/prolonged/worsening of symptoms, No adverse reaction to meds given in ER noted upon discharge PIV d'cd, dressing to site, catheter in tact. Awake, alert oriented, resp reg unlabored, skin w/d, pt leaving in no apparent distress, [id number] 17:45:28 Called pt per request. Got voicemail MO [facility]Pkyltr4514-20-04 17:27:03 Ambulated by MD Angel - patient with severe dizziness with ambulation. Had to stop in the hallway due to dizziness. MO [facility] ClaytonJhgsyr7459-01-39 17:05:16 Patient to ED for dizziness and right arm painful with numbness. Reports dizziness has been off and on for a couple weeks. She got nauseated but didn't vomit. She reports at 1330 she was cooking and the spoon fell out of her right hand because she couldn't move her arm. Episode lasted 15 mins and returned in strength but feels like somebody is squeezing it now. NSE ATTORNEY Tolu Davis [facility]NDiley [facility] CenterLmlevo5715-11-53 17:05:00 Patient's name and verified with patient. Chief Complaint Patient presents with DIZZY Patient brought by EMS, no acute distress while patient is on stretcher. Patient is conscious and alert, with normal/unlabored breathing, and normal color/tone for ethnicity -oriented to name, time, place, and situation. GCS 15. Patient reports she has been experiencing dizziness since ~3 weeks ago - worsened at noon today; also mentions that her right arm felt "like it was locking" and describes pain/numbness to arm. Patient denies chest pain, shortness of breath, fever, chills, nausea and vomiting. Past Medical History: Diagnosis Date DM (diabetes mellitus) HTN (hypertension) Allergies to silicone Vitals obtained. Assessment performed. IV in place and patent. Placed on continuous spo2/cardiac monitoring, HR 77, sinus rhythm on monitor. Bed low and locked, secured with two rails, call light within reach. Belongings at bedside. Patient aware of plan of care. 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 Reports dizziness has been off and on for a couple weeks but became significantly worse this morning. She got nauseated but didn't vomit. The dizziness gets a little better with closing her eyes. She reports at 1330 she was cooking and the spoon fell out of her right hand because she couldn't move her arm. Episode lasted 15 mins and returned in strength but feels like somebody is squeezing it now in the upper arm. She also reports some right leg weakness when walking that has been off and on over the last 2 weeks. She states that when the dizziness is at its worst, she feels like she "stumble over my words", and she becomes short of breath. She denies any recent head or neck trauma and any head or neck pain. She is right-handed. She has had some palpitations. 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 She denies any chest pain, abdominal pain, ear pain or pressure, sinus pain or pressure, decreased hearing, fever, chills. Review of Systems: Review of Systems Constitutional: Negative for appetite change and fever. SEE HPI for other pertinent positives & negatives. HENT: Negative for congestion, ear discharge, ear pain, hearing loss, sinus pressure and sore throat. Eyes: Negative for photophobia and visual disturbance. Respiratory: Positive for shortness of breath. Negative for cough and chest tightness. Cardiovascular: Positive for palpitations. Negative for chest pain and leg swelling. Gastrointestinal: Positive for nausea. Negative for abdominal pain, diarrhea and vomiting. Genitourinary: Negative for dysuria and hematuria. Musculoskeletal: Negative for arthralgias, back pain, myalgias and neck pain. Except as in hpi Skin: Negative for rash and wound. Neurological: Positive for dizziness, weakness and numbness. Negative for headaches. Past Medical History/Immunizations: Past Medical History: Diagnosis Date DM (diabetes mellitus) HTN (hypertension) Tetanus received in last 5 years: No Childhood immunizations: Up-to-date Problem List: There is no problem list on file for this patient. Allergies: Allergies Allergen Reactions Silicones Hives and Rash Past Social History: Substance & Sexual Activity No substance use or sexual activity history on file. Past Surgical History: Past Surgical History: Procedure Laterality Date APPENDECTOMY CHOLECYSTECTOMY Physical Exam: ED Triage Vitals Weight 04/06/23 1707 94.3 kg (208 lb) Actual or estimated -- Height 04/06/23 1707 1.676 m (5' 6") BP 04/06/23 1707 (!) 156/85 Pulse 04/06/23 1707 87 Resp 04/06/23 1707 18 Temp 04/06/23 1707 36.8 ?C (98.3 ?F) Temp src -- SpO2 04/06/23 170 96 % Measured on 04/06/23 1800 Room air Physical Exam Vitals and nursing note reviewed. Constitutional: General: She is awake. She is not in acute distress. Appearance: Normal appearance. She is well-developed and overweight. She is ill-appearing. She is not toxic-appearing or diaphoretic. HENT: Head: Normocephalic and atraumatic. Right Ear: Hearing, tympanic membrane and external ear normal. Left Ear: Hearing and external ear normal. Tympanic membrane is retracted. Tympanic membrane is not erythematous or bulging. Nose: Nose normal. Right Sinus: No maxillary sinus tenderness or frontal sinus tenderness. Left Sinus: No maxillary sinus tenderness or frontal sinus tenderness. Mouth/Throat: Mouth: Mucous membranes are moist. No injury. Eyes: General: No scleral icterus. Extraocular Movements: Extraocular movements intact. Cardiovascular: Rate and Rhythm: Normal rate and regular rhythm. Heart sounds: No murmur heard. No gallop. Pulmonary: Effort: Pulmonary effort is normal. No accessory muscle usage, respiratory distress or retractions. Breath sounds: Normal breath sounds and air entry. No decreased breath sounds, wheezing, rhonchi or rales. Chest: Chest wall: No deformity or tenderness. Abdominal: General: There is no distension. Palpations: Abdomen is soft. Abdomen is not rigid. Tenderness: There is no abdominal tenderness. There is no guarding or rebound. Musculoskeletal: General: No tenderness or deformity. Normal range of motion. Cervical back: Full passive range of motion without pain and neck supple. No spinous process tenderness or muscular tenderness. Right lower leg: No tenderness. No edema. Left lower leg: No tenderness. No edema. Skin: General: Skin is warm and dry. Findings: No erythema or rash. Neurological: General: No focal deficit present. Mental Status: She is alert and oriented to person, place, and time. Cranial Nerves: Cranial nerves 2-12 are intact. Coordination: Romberg sign positive. Gait: Gait abnormal (walks slowly. can walk only ~15 feet & then has to stop & hold on to something before she can continue.). Psychiatric: Attention and Perception: She is attentive. Mood and Affect: Mood and affect normal. Speech: Speech normal. Behavior: Behavior normal. Behavior is cooperative. Cognition and Memory: Cognition and memory normal. Radiology: (Reviewed by me) Hospital Encounter on 04/06/23 CT STROKE ANGIOGRAM NECK Narrative CT STROKE ANGIOGRAM NECK, CT STROKE ANGIOGRAM HEAD HISTORY: Neuro deficit, acute, stroke suspected . Patient presented with dizziness and right arm pain and numbness. TECHNIQUE: Axial CT angiogram of the head and neck was obtained after the administration of contrast. Coronal and sagittal reformats were constructed. COMPARISON: Same day CT head FINDINGS: CTA HEAD Bilateral intradural vertebral arteries are patent. The PICA origin is visualized bilaterally. The basilar artery is normal in caliber. The superior cerebellar arteries are unremarkable. 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 The posterior cerebral arteries are unremarkable. A small left P-comm is visualized. Minimal atherosclerotic calcifications of bilateral carotid siphons without causing severe stenosis. The distal cervical, petrous, cavernous and supraclinoid internal carotid arteries are unremarkable. The anterior and middle cerebral arteries are unremarkable. An anterior communicating artery is not definitively visualized. Scattered prominent arachnoid granulations. CTA NECK Classic three-vessel branching anatomy of the aortic arch. The ostia of major vessels are free of stenosis. The innominate and subclavian arteries are patent. The bilateral common carotid arteries, carotid bulbs and internal carotid arteries are patent without high-grade stenosis. The bilateral vertebral arteries originate from the subclavian arteries and are visualized throughout their entire cervical length. The ostia are free of stenosis. No high-grade stenosis or dissection identified. Soft tissues of the neck are unremarkable. The visualized lung apices are clear. Cervical spine is unremarkable. Impression No aneurysm or high-grade, flow-limiting stenosis is present in the intracranial or cervical vessels. Preliminary Report Dictated by Resident: Deborah Tsang CT STROKE ANGIOGRAM HEAD Narrative CT STROKE ANGIOGRAM NECK, CT STROKE ANGIOGRAM HEAD HISTORY: Neuro deficit, acute, stroke suspected . Patient presented with dizziness and right arm pain and numbness. TECHNIQUE: Axial CT angiogram of the head and neck was obtained after the administration of contrast. Coronal and sagittal reformats were constructed. COMPARISON: Same day CT head FINDINGS: CTA HEAD Bilateral intradural vertebral arteries are patent. The PICA origin is visualized bilaterally. The basilar artery is normal in caliber. The superior cerebellar arteries are unremarkable. 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 The posterior cerebral arteries are unremarkable. A small left P-comm is visualized. Minimal atherosclerotic calcifications of bilateral carotid siphons without causing severe stenosis. The distal cervical, petrous, cavernous and supraclinoid internal carotid arteries are unremarkable. The anterior and middle cerebral arteries are unremarkable. An anterior communicating artery is not definitively visualized. Scattered prominent arachnoid granulations. CTA NECK Classic three-vessel branching anatomy of the aortic arch. The ostia of major vessels are free of stenosis. The innominate and subclavian arteries are patent. The bilateral common carotid arteries, carotid bulbs and internal carotid arteries are patent without high-grade stenosis. The bilateral vertebral arteries originate from the subclavian arteries and are visualized throughout their entire cervical length. The ostia are free of stenosis. No high-grade stenosis or dissection identified. Soft tissues of the neck are unremarkable. The visualized lung apices are clear. Cervical spine is unremarkable. Impression No aneurysm or high-grade, flow-limiting stenosis is present in the intracranial or cervical vessels. Preliminary Report Dictated by Resident: Deborah Tsang CT STROKE HEAD WO CONTRAST Narrative EXAM: CT STROKE HEAD WO CONTRAST HISTORY: 52 years-old Female; Provided indication: Neuro deficit, acute, stroke suspected dizziness & r sided weakness. TECHNIQUE: Axial CT of the head was performed without intravenous contrast.Coronal and sagittal reformats were generated. COMPARISON: None FINDINGS: The ventricles and cerebral sulci are normal in caliber and configuration. No midline shift or pathological extra-axial fluid collection is present. The basal cisterns are unremarkable. No acute intracranial hemorrhage or significant mass effect is visualized. No parenchymal attenuation abnormality is seen. The wu-white matter differentiation is preserved. The mastoid air cells and visualized paranasal air sinuses are clear. The calvarium and central skull base are unremarkable. Impression No acute intracranial findings. Preliminary Report Dictated by Resident: Julius Bond XR CHEST 2 VW Narrative Chest two views CLINICAL INDICATION: dizziness PHYSICIAN NAME: CHANELLE ORTIZ Technique: PA and Lateral views of the chest. COMPARISON: Chest x-ray dated 11/30/2020 FINDINGS: There is no pleural effusion, pneumothorax, or confluent infiltrate. Mild subsegmental atelectasis at the lung bases. The cardiac silhouette is within normal limits. There is no failure pattern. Impression 1. No acute infiltrate or failure pattern. RL: 2701 AFC [id number] End of report Lab Results (24h): (Reviewed by me) Recent Results (from the past 24 hour(s)) COMP. METABOLIC PANEL (13186) Collection Time: 04/06/23 5:54 PM Result Value Ref Range NA 139 135 - 145 mmol/L K 3.5 3.5 - 5.0 mmol/L CL 107 98 - 108 mmol/L CO2 TOTAL 21 (L) 23 - 31 mmol/L AGAP 11 2 - 16 BUN 11 7 - 23 mg/dL GLUCOSE 77 70 - 110 mg/dL CREATININE 0.86 0.50 - 1.04 mg/dL TOTAL BILI 0.5 0.1 - 1.1 mg/dL CALCIUM 9.9 8.6 - 10.6 mg/dL T PROTEIN 7.9 6.3 - 8.2 g/dL ALBUMIN 4.6 3.5 - 5.0 g/dL ALK PHOS 95 34 - 122 U/L ALTv 21 5 - 35 U/L AST(SGOT) 23 13 - 40 U/L eGFR 81.4 mL/min/1.73m2 CBC WITH DIFF Collection Time: 04/06/23 5:54 PM Result Value Ref Range WBC 6.83 4.30 - 11.10 10*3/?L RBC 4.36 3.93 - 5.25 10*6/?L HGB 12.7 11.6 - 15.0 g/dL HCT 37.3 35.7 - 45.2 % MCV 85.6 80.6 - 95.5 fL MCH 29.1 25.9 - 32.8 pg MCHC 34.0 31.6 - 35.1 g/dL RDW-SD 41.5 39.0 - 49.9 fL RDW-CV 13.4 12.0 - 15.5 % PLT 324 166 - 358 10*3/?L MPV 10.3 9.5 - 12.9 fL NRBC/100 WBC 0.0 0.0 - 10.0 /100 WBCs NRBC x103<0.01 10*3/?L GRAN MAT (NEUT) % 63.5 % IMM GRAN % 0.60 % LYMPH % 23.3 % MONO % 9.1 % EOS % 3.1 % BASO % 0.4 % GRAN MAT x103(ANC) 4.34 1.88 - 7.09 10*3/uL IMM GRAN x1030.04 0.00 - 0.06 10*3/uL LYMPH x1031.59 1.32 - 3.29 10*3/uL MONO x1030.62 0.33 - 0.92 10*3/uL EOS x1030.21 0.03 - 0.39 10*3/uL BASO x1030.03 0.01 - 0.07 10*3/uL ACTIVATED PARTIAL THRMPLAS SANDRA Collection Time: 04/06/23 5:54 PM Result Value Ref Range APTT Patient 32 26 - 36 Seconds PROTHROMBIN TIME / INR Collection Time: 04/06/23 5:54 PM Result Value Ref Range PROTIME PATIENT 10.8 10.1 - 12.6 Seconds INR 0.9 N-TERMINAL PRO-BNP Collection Time: 04/06/23 5:54 PM Result Value Ref Range NT-proBNP 29 <=125 pg/mL TROPONIN I Collection Time: 04/06/23 5:54 PM Result Value Ref Range TROPONIN I 0.000 <=0.034 ng/mL URINALYSIS Collection Time: 04/06/23 5:54 PM Result Value Ref Range APPEARANCE Clear Clear COLOR Colorless (A) Yellow PH 6.0 4.8 - 8.0 SP GRAVITY 1.002 (L) 1.003 - 1.030 GLU U QUAL Normal Normal BLOOD Negative Negative KETONES Negative Negative PROTEIN Negative Negative UROBILIN Normal Normal BILIRUBIN Negative Negative NITRITE Negative Negative LEUK RAJ Negative Negative RBC/HPF 1 0 - 3 HPF WBC/HPF <1 0 - 5 HPF BACTERIA Negative Negative SQ EPITH <1 HPF EKG: (interpreted by me) Sinus rhythm, normal axis, no ST/T wave changes Rate: 86 No old EKG to compare with this one. Orders and Treatments: Orders Placed This Encounter Procedures XR CHEST [address] STROKE HEAD WO CONTRAST CT STROKE ANGIOGRAM HEAD CT STROKE ANGIOGRAM NECK COMP. METABOLIC PANEL (31080) CBC WITH DIFF ACTIVATED PARTIAL THRMPLAS SANDRA PROTHROMBIN TIME / INR N-TERMINAL PRO-BNP TROPONIN I URINALYSIS Orders Placed This Encounter Medications NaCl 0.9% (NS) bolus infusion 1,000 mL meclizine (TRAVEL-EASE (MECLIZINE)) tablet 25 mg acetaminophen (TYLENOL) tablet 650 mg iopamidol (ISOVUE 370-500 mL) injection 90 mL ondansetron (ZOFRAN (PF)) injection 4 mg ketorolac (TORADOL) injection 30 mg meclizine (TRAVEL-EASE (MECLIZINE)) tablet 25 mg methocarbamoL (ROBAXIN) injection 1,000 mg losartan 100 mg tablet metformin ER 500 mg 24 hr tablet levothyroxine 75 mcg tablet atorvastatin 40 mg tablet meclizine 25 mg tablet methocarbamoL 500 mg tablet ED COURSE ED Course as of 04/06/232204 Sat Apr 06, [id number] The patient states that her pain has resolved and the dizziness is slightly better but not gone. She now remembers that she hit her head on the wall in the bathroom at [employer] yesterday and thinks this may be part of the reason for her symptoms. She declines any further medication here and would like to just go home. Will discharge with meclizine as needed and Robaxin as needed as well as OTC pain meds. PCP and/or neurology follow-up recommended. Return precautions given. [LS] 2044 Results discussed with patient and her . She is still having squeezing pain in her right upper arm. She states the meclizine helped a little bit with dizziness but having the light off helps too. Will give a dose of Toradol and Robaxin and repeat the meclizine and reevaluate. [LS] 2039 CT STROKE ANGIOGRAM HEAD IMPRESSION No aneurysm or high-grade, flow-limiting stenosis is present in the intracranial or cervical vessels. Preliminary Report Dictated by Resident: Deborah Tsang [LS] 2039 CT STROKE ANGIOGRAM NECK [LS] 2008 CT STROKE HEAD WO CONTRAST IMPRESSION No acute intracranial findings. Preliminary Report Dictated by Resident: Julius Bond [LS] 194 N-TERMINAL PRO-BNP within normal limits [LS] 194 TROPONIN I within normal limits [LS] 192 CBC WITH DIFF unremarkable [LS] 1923 PROTHROMBIN TIME / INR Coags unremarkable [LS] 1923 ACTIVATED PARTIAL THRMPLAS SANDRA [LS] 1923 COMP. METABOLIC PANEL (33440)(!) unremarkable [LS] 192 URINALYSIS(!) unremarkable [LS] 1842 XR CHEST 2 VW IMPRESSION 1. No acute infiltrate or failure pattern. [LS] 1820 Pt requesting pain med for headache. Will not give NSAIDs until after CT. Will give tylenol. [LS] ED Course User Index [LS] Chanelle Ortiz MD Diagnosis/Impression as of 04/06/23 2205 Dizziness Pain of right upper extremity Nonintractable headache, unspecified chronicity pattern, unspecified headache type Diagnosis/Impression: ICD-10-CM 1. Dizziness R42 2. Pain of right upper extremity M79.601 3. Nonintractable headache, unspecified chronicity pattern, unspecified headache type R51.9 Disposition/Condition: ED Disposition ED Disposition Disch - Home Condition Stable Comment -- Discharge Medications: Patient's Medications START taking these medications MECLIZINE 25 MG TABLET Take 1 tablet by mouth every 6 (six) hours. METHOCARBAMOL 500 MG TABLET Take 1 tablet by mouth 4 (four) times daily as needed for Pain (scale 7-10). CONTINUE taking these medications which have NOT CHANGED ALBUTEROL 90 MCG/ACTUATION INHALER Inhale 2 Puffs every 6 (six) hours as needed for Wheezing or Shortness of Breath. ATORVASTATIN 40 MG TABLET Take 1 tablet by mouth in the morning. LEVOTHYROXINE 75 MCG TABLET Take 1 tablet by mouth every morning. LOSARTAN 100 MG TABLET Take 1 tablet by mouth in the morning. METFORMIN ER 500 MG 24 HR TABLET Take 1 tablet by mouth before evening meal. METHYLPREDNISOLONE (MEDROL, LAUREN,) 4 MG TABLETS Take by mouth SEE-INSTRUCTIONS. follow package directions START taking Modified Medications as Prescribed No medications on file STOP taking these medications No medications on file Follow-up: Contact information for follow-up Ryan Cantu MD Specialty: IM-INTERNAL MEDICINE Relationship: PCP - [address] [address] Instructions: As needed MDM: Medical Decision Making The DDx of dizziness includes Vertigo (BPPV, vestibular disease, central vertigo, migraine), presyncope, cardiac causes, disequilibrium, hyperventilation, psychiatric disorder, multicausal. Labs, monitor, EKG, CT head, CTA of the head and neck, chest x-ray, trial of meclizine, IVF. See ED course Amount and/or Complexity of Data Reviewed Independent Historian: EMS External Data Reviewed: labs, radiology and notes. Labs: ordered. Decision-making details documented in ED Course. Radiology: ordered. Decision-making details documented in ED Course. ECG/medicine tests: ordered and independent interpretation performed. Details: See above Risk OTC drugs. Prescription drug management. Decision regarding hospitalization. History, physical exam findings, results of visit, differential diagnosis, medication regimens and plan of future care have been considered. Additional MDM may be found in the ED course. Differential diagnosis considered and final disposition made based on information gathered during evaluation and may not be completely ruled out. Vital signs were rechecked before final disposition and determined to be stable. Portions of this note were completed using [employer] Speaking Software. Occasional phonetic or grammatical errors may escape proofreading. Electronically signed by: Chanelle Ortiz M.D., [facility] [employer] Clinical Professor of Emergency Medicine 04/06/2023 5:14 PM Chanelle Ortiz MD 04/06/233 [facility]2024-01-08 20:57:44 Pt discharged with diagnosis of sore throat and viral URI. Printed and verbal instructions reviewed with and given to patient. Prescriptions given x 2. Pt verbalized understanding of teaching, medications, and recommended follow-up. Denies questions or concerns at this time. Pt ambulatory at discharge. Appears in no apparent distress. No ataxia noted. IE [facility] Francoise Son RNDiley [facility] [id number] 20:03:31 C/O headache, sore throat, chills, cough and bilateral ear pain since Saturday. NSE ATTORNEY Karen Cheung [facility]
--- NOTE | 2024-06-22 21:05 | ER ---
Nurse's Notes [facility] Name: Alessia Brewster Age: 54 yrs Sex: Female : 1970 Arrival Date: 06/22/2024 Time: 20:25 Bed IW2 Private MD: Diagnosis: Acute pansinusitis Presentation: 06/22 20:59 Chief complaint: Patient states: Cough, fever, chills, facial pressure onset . cm10 Coronavirus screen: Client denies travel out of the [place] in the last 14 days. Ebola Screen: Patient denies travel to an Ebola-affected area in the 21 days before illness onset. Initial Sepsis Screen: Does the patient meet any 2 criteria? No. Patient's initial sepsis screen is negative. Does the patient have a suspected source of infection? No. Patient's initial sepsis screen is negative. Risk Assessment: Do you want to hurt yourself or someone else? Patient reports no desire to harm self or others. Onset of symptoms was June 22, 2024. 20:59 Method Of Arrival: Ambulatory cm10 20:59 Acuity: KINGA 4 cm10 Triage Assessment: 21:01 General: Appears in no apparent distress. uncomfortable, Behavior is calm, cooperative. cm10 Pain: Complains of pain in face Pain does not radiate. Pain currently is 10 out of 10 on a pain scale. Quality of pain is described as pressure. EENT: Reports nasal congestion. Neuro: No deficits noted. Level of Consciousness is awake, alert, obeys commands, Oriented to person, place, time, situation, Appropriate for age. Respiratory: No deficits noted. Reports cough that is Airway is patent Respiratory effort is even, unlabored, Respiratory pattern is regular, symmetrical. Historical: - Allergies: 21:00 No Known Allergies; cm10 - PMHx: 21:00 Diabetes mellitus; Hypertensive disorder; cm10 - Immunization history:: Adult Immunizations up to date. - Infectious Disease History:: Denies. - Social history:: Smoking status: Patient denies any tobacco usage or history of. Screenin:18 [facility] ED Fall Risk Assessment (Adult) History of falling in the last 3 months, cm10 including since admission No falls in past 3 months (0 pts) Confusion or Disorientation No (0 pts) Intoxicated or Sedated No (0 pts) Impaired Gait No (0 pts) Mobility Assist Device Used No (0 pt) Altered Elimination No (0 pt) Score/Fall Risk Level 0 - 2 = Low Risk Oriented to surroundings, Maintained a safe environment, Hourly rounding (assess needs \T\ fall precautionary measures) done. Abuse screen: Denies threats or abuse. Denies injuries from another. Nutritional screening: No deficits noted. Tuberculosis screening: No symptoms or risk factors identified. Vital Signs: 20:59 BP 149 / 97; Pulse 73; Resp 15; Temp 98.9(O); Pulse Ox 99% on R/A; Weight 95.25 kg; cm10 Height 5 ft. 6 in. ; Pain 10/10; 20:59 Body Mass Index 33.89 (95.25 kg, 167.64 cm) cm10 20:59 Pain Scale: Adult cm10 ED Course: 20:55 Patient arrived in ED. gm2 20:56 Miguelina Toro PA-C is PHCP. sb4 20:56 Manjinder Greene MD is Attending Physician. sb4 21:00 Triage completed. cm10 21:00 Arm band placed on right wrist. Patient placed in waiting room. cm10 21:04 Angelic Gibbons, RN is Primary Nurse. cm10 21:18 Patient has correct armband on for positive identification. Provided Education on: cm10 Follow-up instructions. 21:18 No provider procedures requiring assistance completed. Patient did not have IV access cm10 during this emergency room visit. Administered Medications: 21:14 Drug: Amoxicillin-Clavulanate PO 875 mg PO once Route: PO; cm10 21:17 Follow up: Response: Medication administered at discharge. cm10 21:14 Drug: predniSONE PO 40 mg PO once Route: PO; cm10 21:17 Follow up: Response: Medication administered at discharge. cm10 21:14 Not Given (Not availablee): phenylephrine Tablet 5 mg PO once cm10 Medication: 21:18 VIS not applicable for this client. cm10 Outcome: 21:04 Discharge ordered by . sb4 21:19 Discharged to home ambulatory, cm10 21:19 Condition: good 21:19 Discharge instructions given to patient, Instructed on discharge instructions, follow up and referral plans. medication usage, Demonstrated understanding of instructions, follow-up care, medications, Prescriptions given X 3, 21:19 Patient left the ED. cm10 Signatures: Miguelina Toro, MARISA [place] sb4 Angelic Gibbons, RN RN cm10 Emeli Maria gm2
--- NOTE | 2024-06-22 21:05 | EDPHYS ---
Physician Documentation [facility] Name: Alessia Brewster Age: 54 yrs Sex: Female : 1970 Arrival Date: 06/22/2024 Time: 20:25 Bed IW2 Private MD: ED Physician Manjinder Greene HPI: 06/22 21:25 This 54 yrs old Female presents to ER via Ambulatory with complaints of Cough, sb4 Congestion, Fever. 21:25 dry cough, congestion, fever, malaise, sinus congestion and pain x 4 days. no n/v/d. sb4 thought she was feeling better yesterday, but got worse today. could not get into see her PCP today. no chest pain or sob. Historical: - Allergies: 21:00 No Known Allergies; cm10 - PMHx: 21:00 Diabetes mellitus; Hypertensive disorder; cm10 - Immunization history:: Adult Immunizations up to date. - Infectious Disease History:: Denies. - Social history:: Smoking status: Patient denies any tobacco usage or history of. ROS: 21:25 Constitutional: Positive for chills, fever, sb4 21:25 Abdomen/GI: Negative for abdominal pain, nausea, vomiting, diarrhea, and constipation, sb4 21:25 ENT: Positive for sinus congestion, sinus pain, sore throat, 21:25 Respiratory: Positive for cough, 21:25 All other systems are negative, Exam: 21:25 Eyes: Extra-ocular motions intact. Periorbital areas with no swelling, redness, or sb4 edema. Cardiovascular: Regular rate and rhythm with a normal S1 and S2. Respiratory: No increased work of breathing, no retractions or nasal flaring. Abdomen/GI: Soft, non-tender, no distension. Skin: Warm, dry with normal turgor. Normal color with no rashes, no lesions, and no evidence of cellulitis. 21:25 Constitutional: The patient appears alert, awake, obviously ill, 21:25 Head/face: Sinus tenderness, that is moderate, is located over the right frontal sinus, left frontal sinus, right ethmoid sinus, left ethmoid sinus, right maxillary sinus and left maxillary sinus, 21:25 ENT: Exam is negative for TM abnormalities, enlarged tonsils, pharyngitis, 21:25 Respiratory: Breath sounds: are clear throughout, Vital Signs: 20:59 BP 149 / 97; Pulse 73; Resp 15; Temp 98.9(O); Pulse Ox 99% on R/A; Weight 95.25 kg; cm10 Height 5 ft. 6 in. ; Pain 10/10; 20:59 Body Mass Index 33.89 (95.25 kg, 167.64 cm) cm10 20:59 Pain Scale: Adult cm10 MDM: 21:04 Medical Screening Exam initiated sb4 21:26 Data reviewed: vital signs, nurses notes, and as a result, I will discharge patient. sb4 Counseling: I had a detailed discussion with the patient and/or guardian regarding the historical points, exam findings, and any diagnostic results supporting the discharge/admit diagnosis, the presence of at least one elevated blood pressure reading (>120/80) during this emergency department visit, the need for outpatient follow up, for definitive care, to return to the emergency department if symptoms worsen or persist or if there are any questions or concerns that arise at home. Administered Medications: 21:14 Drug: Amoxicillin-Clavulanate PO 875 mg PO once Route: PO; cm10 21:17 Follow up: Response: Medication administered at discharge. cm10 21:14 Drug: predniSONE PO 40 mg PO once Route: PO; cm10 21:17 Follow up: Response: Medication administered at discharge. cm10 21:14 Not Given (Not availablee): phenylephrine Tablet 5 mg PO once cm10 Disposition: 06/23 01:18 Co-signature as Attending Physician, Manjinder Greene MD I agree with the assessment sp4 and plan of care. I reviewed the patient's care provided by the Advanced Practice Provider and agree with the diagnosis and treatment plan. Disposition Summary: 06/22/24 21:04 Discharge Ordered Notes: Location: Home sb4 Problem: new sb4 Symptoms: are unchanged sb4 Condition: Stable sb4 Diagnosis - Acute pansinusitis sb4 Followup: sb4 - With: Private Physician - When: 1 week - Reason: Recheck today's complaints, Re-evaluation by your physician Discharge Instructions: - Discharge Summary Sheet sb4 - Sinusitis, Adult, [id number] sb4 Forms: - Antibiotic Education sb4 - Patient Portal Instructions sb4 - Leadership Thank You Letter sb4 - Work release form cm10 Prescriptions: - phenylephrine HCl 10 mg Oral tablet - take 1 tablet ORAL route every 4 to 6 hours as needed for nasal congestion; 20 sb4 tablet; Refills: 0, Product Selection Permitted - Augmentin 875-125 mg Oral Tablet - take 1 tablet ORAL route every 12 hours for 10 days; 20 tablet; Refills: 0, sb4 Product Selection Permitted - Medrol (Eugenio) 4 mg Oral Tablets, Dose Pack - take 1 tablet ORAL route as directed - follow package instructions; 1 packet; sb4 Refills: 0, Product Selection Permitted Signatures: Miguelina Toro PA-C PA-C sb4 Manjinder Greene MD MD sp4 Angelic Gibbons RN RN cm10
[2024-06-22] MEDS ORDERED: predniSONE 20 MG TAB ONE (21:10)
[2024-06-22] MEDS ORDERED: AMOX/K CLAV 875 MG TAB ONE (21:11)
[2024-06-23 21:35] VITALS: BP 149/97; TEMP 98.9; O2SAT 99
== END 2024-06-22 21:19 | disposition home or self-care (01) ==
LOC: ER 20:25
DX: J01.40 Acute pansinusitis, unspecified (principal)
CPT/HCPCS: 99283; J7512

== ENCOUNTER 2024-11-21 07:15 | Emergency (ER) | payer BC ==
--- OUTSIDE RECORDS SUMMARY | 2024-11-21 07:25 | XMS REPORT | Continuity of Care Document ---
Author Name Unknown Address [address] [place] [address] [facility] Address [address] [place] [address] Care Team Providers Care Make Up Man Name Role Phone Pcp, Patient Does Not Have A Primary Care Physic aracely Chanelle Ortiz MD Attending Clinician [phone] CHANELLE ORTIZ Attending Clinician UnavailABELINO Chase Attending Clinician Unavailable Abelino Enciso PA-C Attending Clinician [phone] Doctor Unassigned, [place] Attending Clinician U WEN Rivero Attending Clinician Unavailable MARGARITA TOLLIVER Attending Clinician UnavailJADON Mayberry Attending Clinician Unavailable Jadon Quintero Attending Clinician [phone] JOSE CARLOS BENAVIDES Attending Clinician Unavailable Jose Carlos Melo Attending Clinician [phone] EBEN MAHER Attending Clinician Unavailable CHANELLE ORTIZ Admitting Clinician UnavailJADON Davalos Admitting Clinician Unavailable JOSE CARLOS BENAVIDES Admitting Clinician Unavailable Payers Payer Name Policy Type Policy Number Effective Date Expirati on Date Source [employer] [id number] 2022 00:00:00 Problems Condition Name Condition Details Condition Category Status Onset Date Resolution Date Last Treatment Date Treating Clinician Comments Source No known active problems No known active problems Disease [facility] Allergies, Adverse Reactions, Alerts Allergy Name Allergy Type Status Severity Reaction(s) Onset Date Inactive Date Treating Clinician Comments Source Adhesive Bandages , (Not Checked) Propensi ty to adverse reaction to drug Active 3-14 00:00: 00 Stuart Gutierrez Adhesive Bandages Propensi ty to adverse reaction to drug Active 9-15 00:00: 00 Stuart Gutierrez SILICONE S DRUG INGREDI Active High Hives 1-09 00:00: 00 [facility] Silicone s Drug Allergy Active Rash 1- 00:00: 00 [facility] NO KNOWN ALLERGIE S Drug Class Active [facility] Social History Social Habit Start Date Stop Date Quantity Comments Source Sexual [facility] Exposure to SARS-CoV-2 (event) 2021-12-25 00:00:00 2022-01-04 18:04:00 Not sure [facility] Sex Assigned At 1970 00:00:00 1970 00:00:00 [facility] Smoking Status Start Date Stop Date Source Tobacco smoking consumption unknown [facility] Medications Ordered Medication Name Filled Medication Name Start Date Stop Date Current Medication? Ordering Clinician Indication Dosage Frequency Signature (SIG) Comments Components Source methocarbam ol 750 mg tablet 3-13 00:00: 00 Yes 2mg Stuart Gutierrez scopolamine 1 mg over 3 days transdermal patch -24 00:00: 00 Yes 1mg over 3 days Stuart Gutierrez butalbital- acetaminoph en-caffeine 50 mg-300 mg-40 mg capsule 2-24 00:00: 00 Yes 12mg Stuart Gutierrez methocarbam ol 750 mg tablet 2- 00:00: 00 Yes 2mg Stuart Gutierrez tizanidine 4 mg tablet 2-21 00:00: 00 Yes 1mg Stuart Gutierrez losartan 100 mg tablet 2-20 00:00: 00 Yes 1mg Stuart Gutierrez levothyroxi ne 75 mcg tablet 2-20 00:00: 00 Yes 1mcg Stuart Gutierrez gabapentin 300 mg capsule 2-20 00:00: 00 Yes 1mg Stuart Gutierrez methocarbam ol 750 mg tablet 1- 00:00: 00 Yes 2mg Stuart Gutierrez tizanidine 4 mg tablet 2023-02 2-19 00:00: 00 Yes 1mg Stuart Gutierrez ondansetron 4 mg disintegrat ing tablet 2023-02 1-18 00:00: 00 Yes 1mg Stuart Gutierrez methocarbam ol 750 mg tablet 2023-02 1-15 00:00: 00 Yes 2mg Stuart Gutierrez Flonase [...] Stuart Gutierrez levothyroxi ne 75 mcg tablet 11-07 00:00: 00 Yes 1mcg Stuart Gutierrez gabapentin 300 mg capsule - 00:00: 00 Yes 1mg Stuatr Gutierrez albuterol sulfate HFA 90 mcg/actuati on aerosol inhaler - 00:00: 00 Yes 12mcg/a ctuatio n Stuart Gutierrez prednisone 50 mg tablet - 00:00: 00 Yes 1mg Stuart Gutierrez azithromyci n 500 mg tablet -17 00:00: 00 Yes 1mg Sturat Gutierrez Bromfed DM 2 mg-30 mg-10 mg/5 mL oral syrup -17 00:00: 00 Yes 20mg/5 mL Stuart Gutierrez ibuprofen 800 mg tablet - 00:00: 00 Yes 1mg Stuart Gutierrez tizanidine 4 mg tablet 7- 00:00: 00 Yes 1mg Stuart Gutierrez losartan 100 mg tablet 3-14 00:00: 00 Yes 1mg Stuart Gutierrez atorvastati n 40 mg tablet 05-08 00:00: 00 Yes 1mg Stuart Gutierrez levothyroxi ne 75 mcg tablet 05-08 00:00: 00 Yes 1mcg Stuart Gutierrez UNITHROID 75 MCG 05-08 00:00: 00 Yes Stuart Gutierrez OZEMPIC 1 MG/DOSE (4 MG/3 ML) 05-08 00:00: 00 Yes 1 Stuart Gutierrez ketorolac (TORADOL) injection 30 mg 04-07 04:00: 00 04-07 03:02 :00 No 30mg 30 mg, Slow IV Push, ONCE, 1 dose, On 04/06/23 at 2200, [facility] meclizine (TRAVEL-EAS E (MECLIZINE) ) tablet 25 mg 04-07 03:00: 00 04-07 03:02 :00 No 25mg 25 mg, Oral, ONCE, 1 dose, On 04/06/23 at 2100, [facility] methocarbam oL (ROBAXIN) injection 1,000 mg 04-07 02:47: 00 04-07 03:08 :00 No 1000mg 1,000 mg, Slow IV Push, Administer over 3-5 Minutes, ONCE, 1 dose, On 04/06/23 at 2100, [facility] ondansetron (ZOFRAN (PF)) injection 4 mg 04-07 02:15: 00 04-07 02:21 :00 No 4mg 4 mg, Slow IV Push, ONCE, 1 dose, On 04/06/23 at 2015, [facility] iopamidol (ISOVUE 370-500 mL) injection 90 mL 04-07 01:45: 00 04-07 02:00 :00 No [id number] 90mL 90 mL, Intravenou s, ONCE, 1 dose, On 04/06/23 at 2000, Routine [facility] acetaminoph en (TYLENOL) tablet 650 mg 04-07 00:30: 04-07 00:30 :00 No 650mg 650 mg, Oral, ONCE, 1 dose, On 04/06/23 at 1830, [facility] NaCl 0.9% (NS) bolus infusion 1,000 mL 04-07 00:30: 00 04-07 03:06 :00 No 1000mL at 999 mL/hr, 1,000 mL, IV Infusion, ONCE, 1 dose, On 04/06/23 at 1830, [facility] meclizine (TRAVEL-EAS E (MECLIZINE) ) tablet 25 mg 04-06 23:45: 00 04-07 00:12 :00 No 25mg 25 mg, Oral, ONCE, 1 dose, On 04/06/23 at 1745, [facility] meclizine 25 mg tablet 04-06 00:00: 00 Yes [id number] 25mg Take 1 tablet by mouth every 6 (six) hours. [facility] methocarbam oL 500 mg tablet 04-06 00:00: 00 Yes [id number] 500mg Take 1 tablet by mouth 4 (four) times daily as needed for Pain (scale 7-10). [facility] METHOCARBAM OL 500 MG 04-06 00:00: 00 07-01 00:00 :00 No Stuart Gutierrez TAKE 1 TABLET BY MOUTH EVERY 6 HOURS 04-06 00:00: 00 07-01 00:00 :00 No Stuart Gutierrez INJECT 1 MG SUBCUTANEOU SLY WEEKLY 03-22 00:00: 00 07-01 00:00 :00 No 43 Stuart Gutierrez dexamethaso ne sod phos PF injection 10 mg 03-05 02:30: 00 03-05 02:32 :00 No 10mg 10 mg, Intramuscu lar, ONCE, 1 dose, On 03/04/23 at 2030, 1 mL [facility] methylPREDN ISolone (MEDROL, LAUREN,) 4 mg tablets 03-04 00:00: 00 Yes [id number] Take by mouth SEE-INSTRU CTIONS. follow package directions [facility] bromphenira mine-pseudo ephedrine-D M (BROMFED DM) 2-30-10 mg/5 mL syrup 03-04 00:00: 00 03-15 05:59 :00 No [id number] 10mL Take 10 mL by mouth 4 (four) times daily as needed for Congestion /Allergies for up to 10 days. [facility] INJECT 0.25 MG SUBCUTANEOU SLY WEEKLY, INCREASE TO 0.5 MG SUBCUTANEOU SLY WEEKLY AFTER 2 WEEKS 2022-02 00:00: 00 07-01 00:00 :00 No 23 Stuartshelly Gutierrez INJECT 0.25 MG SUBCUTANEOU SLY WEEKLY, INCREASE TO 0.5 MG SUBCUTANEOU SLY WEEKLY AFTER 4 WEEKS 2022-02 00:00: 00 07-01 00:00 :00 No 23 Stuart Jamel Gutierrez TAKE 1 TABLET TWICE DAILY WITH FOOD. 2022-02 00:00: 00 07-01 00:00 :00 No [id number] Stuart Jamel Gutierrez TAKE 1 CAPS PO QHS X 7 DAYS AND INCREASE TO 1 CAP PO BID IF TOLERATED. 2022-02 00:00: 00 07-01 00:00 :00 No 300 Stuartshelly Gutierrez TAKE 1 TABLET DAILY. 11-21 00:00: 00 07-01 00:00 :00 No 100 Stuartshelly Gutierrez TAKE 1 TABLET AT BEDTIME. 11-21 00:00: 00 07-01 00:00 :00 No 40 Stuart Jamel Gutierrez TAKE 1 TABLET EVERY MORNING. 11-21 00:00: 00 07-01 00:00 :00 No 75 Stuart F Matt OZEMPIC 0.25-0.5 MG/DOSE PEN 11-12 00:00: 00 07-01 00:00 :00 No 2505 Stuart F Matt INJECT 0.25 MG SUBCUTANEOU SLY WEEKLY, INCREASE TO 0.5 MG SUBCUTANEOU SLY WEEKLY AFTER 4 WEEKS 11-09 00:00: 00 07-01 00:00 :00 No 23 Stuart Gutirerez metformin ER 500 mg 24 hr tablet 03-12 00:00: 00 Yes 500mg Take 1 tablet by mouth before evening meal. [facility] atorvastati n 40 mg tablet 03-12 00:00: 00 Yes 40mg Take 1 tablet by mouth in the morning. [facility] losartan 100 mg tablet 03-05 00:00: 00 Yes 100mg Take 1 tablet by mouth in the morning. [facility] levothyroxi ne 75 mcg tablet 03-05 00:00: 00 Yes 75ug Take 1 tablet by mouth every morning. [facility] iopamidol (ISOVUE 370-500 mL) injection 75 mL 2021-02 03:15: 00 01-05 03:15 :00 No [id number] 75mL 75 mL, Intravenou s, ONCE, 1 dose, On Sat01/04/22 at 2115, Routine [facility] TAKE 1 TABLET DAILY. 08-31 00:00: 00 Yes 100 Stuart Gutierrez levothyroxi ne 75 mcg tablet 2020-02 00:00: 00 Yes 1mcg Stuart Gutierrez albuterol 90 mcg/actuati on inhaler 2020-02 00:00: 00 Yes [id number] 2{puff} Inhale 2 Puffs every 6 (six) hours as needed for Wheezing or Shortness of Breath. [facility] citalopram 40 mg tablet 11-19 00:00: [...] Date Status Comments Source Influenza, injectable, Madin [place] Canine Kidney, preservative-free, quadrivalent Influenza, injectable, Madin [place] Canine Kidney, preservative-free, quadrivalent 2024-02-28 00:00:00 Completed Stuart Jamel Matt SHINGRIX VACCINE SHINGRIX VACCINE 2024-02-28 00:00:00 Completed Stuart Gutierrez Influenza, injectable, Madin [place] Canine Kidney, preservative-free, quadrivalent Influenza, injectable, Madin [place] Canine Kidney, preservative-free, quadrivalent 2023-04-11 00:00:00 Completed Stuart Gutierrez Td (adult) preservative Td (adult) preservative 2023-04-11 00:00:00 Completed Stuart Jamel Matt Vital Signs Vital Name Observation Time Observation Value Comments S ourcelestina Systolic blood pressure 2023-04-07 04:00:00 131 mm[Hg] [facility] Diastolic blood pressure 2023-04-07 04:00:00 71 mm[Hg] [facility] Heart rate 2023-04-07 04:00:00 70 /min [facility] Respiratory rate 2023-04-07 04:00:00 13 /min [facility] Oxygen saturation in Arterial blood by Pulse oximetry 2023-04-07 04:00:00 97 /min [facility] Body temperature 2023-04-06 23:27:40 36.83 Divina [facility] Body height 2023-04-06 23:07:00 167.6 cm [facility] Body weight 2023-04-06 23:07:00 94.348 kg [facility] BMI 2023-04-06 23:07:00 33.57 kg/m2 [facility] Systolic blood pressure 2023-03-05 02:05:00 137 mm[Hg] [facility] Diastolic blood pressure 2023-03-05 02:05:00 78 mm[Hg] [facility] Heart rate 2023-03-05 02:05:00 85 /min [facility] Body temperature 2023-03-05 02:05:00 36.89 Divina [facility] Respiratory rate 2023-03-05 02:05:00 18 /min [facility] Body height 2023-03-05 02:05:00 167.6 cm [facility] Body weight 2023-03-05 02:05:00 96.163 kg [facility] BMI 2023-03-05 02:05:00 34.22 kg/m2 [facility] Oxygen saturation in Arterial blood by Pulse oximetry 2023-03-05 02:05:00 99 /min [facility] Systolic blood pressure 2022-01-05 03:02:00 124 mm[Hg] [facility] Diastolic blood pressure 2022-01-05 03:02:00 77 mm[Hg] [facility] Heart rate 2022-01-05 03:02:00 59 /min [facility] Respiratory rate 2022-01-05 03:02:00 18 /min [facility] Oxygen saturation in Arterial blood by Pulse oximetry 2022-01-05 03:02:00 97 /min [facility] Body temperature 2022-01-05 00:05:00 37.06 Divina [facility] Body height 2022-01-05 00:05:00 167.6 cm [facility] Body weight 2022-01-05 00:05:00 86.183 kg [facility] BMI 2022-01-05 00:05:00 30.67 kg/m2 [facility] Systolic blood pressure 2020-12-01 01:35:00 131 mm[Hg] [facility] Diastolic blood pressure 2020-12-01 01:35:00 70 mm[Hg] [facility] Heart rate 2020-12-01 01:35:00 70 /min [facility] Body temperature 2020-12-01 01:35:00 37.17 Divina [facility] Respiratory rate 2020-12-01 01:35:00 16 /min [facility] Body height 2020-12-01 01:35:00 167.6 cm [facility] Body weight 2020-12-01 01:35:00 81.647 kg [facility] BMI 2020-12-01 01:35:00 29.05 kg/m2 [facility] Oxygen saturation in Arterial blood by Pulse oximetry 2020-12-01 01:35:00 98 /min [facility] BP Systolic 2024-07-24 14:17:00 129 mm[Hg] Step hen F Amtt BP Diastolic 2024-07-24 14:17:00 92 mm[Hg] Armand phen F Matt Weight Measured 2024-07-24 14:17:00 206.00 pounds Stuart Gutierrez Height Measured 2024-07-24 14:17:00 66.14 inches Stuart Gutierrez Body Temperature 2024-07-24 14:17:00 97.80 degrees Stuart F Matt Heart Rate 2024-07-24 14:17:00 73.00 /min Yasmine en F Matt Respiratory Rate 2024-07-24 14:17:00 18.00 /min Stuart F Matt BP Systolic 2024-04-20 09:31:00 120 mm[Hg] Step hen F Matt BP Diastolic 2024-04-20 09:31:00 63 mm[Hg] Armand phen F Matt Weight Measured 2024-04-20 09:31:00 201.80 pounds Stuart F Matt Height Measured 2024-04-20 09:31:00 66.14 inches Stuart [...] Weight Measured 2024-04-02 16:17:00 205.40 pounds Stuart F Matt Height Measured 2024-04-02 16:17:00 66.14 inches Stuart [...] Matt Weight Measured 2023-04-05 15:11:00 206.80 pounds Stuatr F Matt Height Measured 2023-04-05 15:11:00 66.14 inches Sturat F Matt Body Temperature 2023-04-05 15:11:00 Stuart [...] F Matt Body Temperature 2022-11-12 08:17:00 Stuart Gutierrez Heart Rate 2022-11-12 08:17:00 82.00 /min Yasmine en Jamel Gutierrez Respiratory Rate 2022-11-12 08:17:00 Stuart Gutierrez BP Systolic 2022-11-09 14:01:00 137 mm[Hg] Pa Gutierrez BP Diastolic 2022-11-09 14:01:00 93 mm[Hg] Armand Gutierrez Weight Measured 2022-11-09 14:01:00 200.20 pounds Stuart Gutierrez Height Measured 2022-11-09 14:01:00 66.14 inches Stuart Gutierrez Body Temperature 2022-11-09 14:01:00 98.40 degrees Stuart Gutierrez Heart Rate 2022-11-09 14:01:00 101.00 /min Pa Gutierrez Respiratory Rate 2022-11-09 14:01:00 18.00 /min Stuart Gutierrez Procedures Procedure Date / Time Performed Performing Clinician Source XR CHEST 2 VW 2023-04-07 00:08:00 Chanelle Ortiz [facility] TROPONIN I 2023-04-06 23:54:00 Chanelle Ortiz [facility] COMP. METABOLIC PANEL ([id number]) 2023-04-06 23:54:00 Chanelle Ortiz [facility] CBC WITH DIFF 2023-04-06 23:54:00 Chanelle Ortiz [facility] PROTHROMBIN TIME / INR 2023-04-06 23:54:00 Chanelle Ortiz [facility] ACTIVATED PARTIAL THRMPLAS SANDRA 2023-04-06 23:54:00 Chanelle Ortiz [facility] URINALYSIS 2023-04-06 23:54:00 Chanelle Ortiz Un [facility] N-TERMINAL PRO-BNP 2023-04-06 23:54:00 Emerita Ortiz [facility] ASSIGNMENT OF BENEFITS 2023-03-05 02:50:30 Docto r Unassigned, [place] [facility] RAPID STREP SCREEN FOR GROUP A 2023-03-05 02:11:00 Gavino Ortega [facility] RAPID INFLUENZA A/B 2023-03-05 02:11:00 Barrington Ortega [facility] COVID-19 (ID NOW RAPID TESTING) 2023-03-05 02:11:00 Gavino Ortega [facility] NOTICE OF PRIVACY PRACTICES 2023-03-05 02:01:05 Doctor Unassigned, [place] [facility] CONSENT/REFUSAL FOR DIAGNOSIS AND TREATMENT 2023-03-05 01:59:51 Doctor Unassigned, [place] [facility] CT THORAX W CONTRAST 2022-01-05 02:16:00 Sameer Guzman [facility] POCT TEST 2022-01-05 02:00:00 Charles Guzman [facility] COMP. METABOLIC PANEL ([id number]) 2022-01-05 01:58:00 Jadon Guzman [facility] CBC WITH DIFF 2022-01-05 01:58:00 Jadon Guzman [facility] CONSENT/REFUSAL FOR DIAGNOSIS AND TREATMENT 2022-01-04 23:52:52 Doctor Unassigned, [place] [facility] XR CHEST 2 VW 2020-12-01 02:28:01 Jose Carlos Benavides [facility] NOTICE OF PRIVACY PRACTICES 2020-12-01 01:41:29 Doctor Unassigned, [place] [facility] CONSENT/REFUSAL FOR DIAGNOSIS AND TREATMENT 2020-12-01 01:41:09 Doctor Unassigned, [place] [facility] Encounters Start Date/Time End Date/Time Encounter Type Admission Type Attending [facility] Care Department Encounter ID Source 2024-07-24 14:11:15 2024-07-24 14:11:15 Outpatient SFA SFA [id number] Stuart Mccullough Matt 2024-07-24 00:00:00 2024-07-24 00:00:00 Outpatient Visit SFA [id number] Stuart Mccullough Matt 2024-04-20 09:23:50 2024-04-20 09:23:50 Outpatient SFA SFA [id number] Stuart Mccullough Matt 2024-04-20 00:00:00 2024-04-20 00:00:00 Outpatient Visit SFA [id number] Stuart Gutierrez 2024-04-02 16:06:14 2024-04-02 16:06:14 Outpatient SFA SFA [id number] Stuart Gutierrez 2024-04-02 00:00:00 2024-04-02 00:00:00 Outpatient Visit SFA [id number] Stuart Gutierrez 2024-02-28 14:32:57 2024-02-28 14:32:57 Outpatient SFA SFA [id number] Stuart Gutierrez 2024-02-28 00:00:00 2024-02-28 00:00:00 Outpatient Visit SFA [id number] Stuart Gutierrez 2024-01-13 14:43:10 2024-01-13 14:43:10 Outpatient SFA SFA [id number] Stuart Gutierrez 2024-01-13 00:00:00 2024-01-13 00:00:00 Outpatient Visit SFA [id number] Stuart Gutierrez 2024-01-11 09:57:09 2024-01-11 09:57:09 Outpatient SFA SFA [id number] Stuart Gutierrez 2024-01-11 00:00:00 2024-01-11 00:00:00 Outpatient Visit SFA [id number] Stuart Gutierrez 2024-01-10 10:45:02 2024-01-10 10:45:02 Outpatient SFA SFA [id number] Stuart Gutierrez 2024-01-10 00:00:00 2024-01-10 00:00:00 Outpatient Visit SFA [id number] Stuart Gutierrez 2023-12-06 09:56:50 2023-12-06 09:56:50 Outpatient SFA SFA [id number] Stuart Gutierrez 2023-12-06 00:00:00 2023-12-06 00:00:00 Outpatient Visit SFA [id number] Stuart Gutierrez 2023-11-08 10:01:15 2023-11-08 10:01:15 Outpatient SFA SFA [id number] Stuart Gutierrez 2023-11-08 00:00:00 2023-11-08 00:00:00 Outpatient Visit SFA [id number] Stuart Gutierrez 2023-10-12 13:38:27 2023-10-12 13:38:27 Outpatient SFA SFA [id number] Stuart Gutierrez 2023-10-12 00:00:00 2023-10-12 00:00:00 Outpatient Visit SFA [id number] Stuart Gutierrez 2023-08-30 11:39:02 2023-08-30 11:39:02 Outpatient SFA SFA [id number] Stuart Gutierrez 2023-08-26 10:17:50 2023-08-26 10:17:50 Outpatient SFA SFA [id number] Stuart Gutierrez 2023-05-09 13:50:28 2023-05-09 13:50:28 Outpatient SFA SFA [id number] Stuart Gutierrez 2023-04-11 13:19:25 2023-04-11 13:19:25 Outpatient SFA SFA [id number] Stuart Gutierrez 2023-04-08 15:42:00 2023-04-08 15:42:00 Outpatient SFA SFA [id number] Stuart Gutierrez 2023-04-06 17:04:00 2023-04-06 22:18:00 [facility] [id number] [facility] 2023-04-06 17:04:00 2023-04-06 22:18:00 Emergency X CHANELLE ORTIZ [facility] ERT [id number] [facility] 2023-04-05 15:03:21 2023-04-05 15:03:21 Outpatient SFA [facility] [id number] Stuart Gutierrez 2023-03-04 20:11:00 2023-03-04 20:58:00 Emergency X CHRISTINA ENCISOSHUA [facility] ERT [id number] [facility] 2023-03-04 20:11:00 2023-03-04 20:58:00 Emergency Abelino Enciso [facility] [id number] [facility] 2023-03-04 00:00:00 2023-03-04 00:00:00 Orders Only Doctor Unassigned, [place] [facility] [id number] [facility] 2023-02-22 11:03:07 2023-02-22 11:03:07 Outpatient SFA [facility] [id number] Stuart Gutierrez 2023-01-05 15:04:46 2023-01-05 15:04:46 Outpatient SFA [facility] [id number] Stuart Gutierrez 2022-12-31 10:11:34 2022-12-31 10:11:34 Outpatient SFA [facility] [id number] Stuart Gutierrez 2022-11-12 08:06:13 2022-11-12 08:06:13 Outpatient SFA [facility] [id number] Stuart Gutierrez 2022-11-09 13:58:11 2022-11-09 13:58:11 Outpatient SFA [facility] [id number] Stuart Gutierrez 2022-06-13 09:00:00 2022-06-13 09:00:00 Outpatient WEN JOHNSON [facility] [id number] Manuel agudelo [facility] 2022-03-07 08:30:00 2022-03-07 08:30:00 Outpatient MARGARITA KAMINSKI [facility] [id number] [facility] 2022-01-04 18:06:00 2022-01-04 22:26:00 Emergency X JADON GUZMAN [facility] ERT [id number] [facility] 2022-01-04 18:06:00 2022-01-04 22:26:00 Emergency Jadon Guzman [facility] [id number] [facility] 2020-11-30 20:41:00 2020-11-30 22:36:00 Emergency X JOSE CARLOS BENAVIDES [facility] ERT [id number] [facility] 2020-11-30 20:41:00 2020-11-30 22:36:00 Emergency Jose Carlos Benavides [facility] [id number] [facility] 2020-11-30 20:41:00 2020-11-30 20:41:00 Emergency X JOSE CARLOS BENAVIDES [facility] ERT [id number] [facility] 2020-05-18 10:20:00 2020-05-18 10:20:00 Outpatient Sherita CHICASBELLEEBEN [facility] [id number] [facility] Results Test Description Test Time Test Comments Results Result Co mments Source Stuart Jamel Austin[place]IP[place] [id number] 00:00:00* Test Item Value Reference Range Interpretation Comme nts CHOLESTEROL, TOTAL (test cod e = 2093-3) 182 mg/dL HDL CHOLESTEROL (test code = 2085-9) 42 mg/dL TRIGLYCERIDES (test code = 2571-8) 219 mg/dL LDL-CHOLESTEROL (test code = 36850-7) 106 mg/dL(calc) CHOL/HDLC RATIO (test code = 9830-1) 4.3 (calc) NON HDL CHOLESTEROL (test code = 02677-8) 140 mg/dL(calc) Stuart [id number] 00:00:00* Test Item Value Reference Range Interpretation Comme nts TSH (test code = 3016-3) 0.79 mIU/L Stuart GutierrezHEMOGLOBIN [id number] 00:00:00* Test Item Value Reference Range Interpretation Comme nts HEMOGLOBIN A1c (test code = 4548-4) 5.5 % Stuart GutierrezLIPID [id number] 00:00:00* Test Item Value Reference Range Interpretation Comme nts CHOLESTEROL (test code = 2210) 204 MG/DL TRIGLYCERIDES (test code = 2232) 169 MG/DL HDL CHOLESTEROL (test code = 2220) 51 MG/DL CALC LDL CHOL (test code = 2237) 124 MG/DL RISK RATIO LDL/HDL (test cod e = 2238) 2.43 RATIO Stuart GutierrezHIV 1/2 4TH GEN, RFLX [id number] 00:00:00* Test Item Value Reference Range Interpretation Comme nts HIV 1/2 4TH GEN, RFLX CONF ( test code = 3514) NON-REACTIVE Stuart GutierrezLIPID [id number] 00:00:00* Test Item Value Reference Range Interpretation Comme nts CHOLESTEROL (test code = 2210) 204 MG/DL TRIGLYCERIDES (test code = 2232) 169 MG/DL HDL CHOLESTEROL (test code = 2220) 51 MG/DL CALC LDL CHOL (test code = 2237) 124 MG/DL RISK RATIO LDL/HDL (test cod e = 2238) 2.43 RATIO Stuart Mccullough AustinHIV 1/2 4TH GEN, RFLX [id number] 00:00:00* Test Item Value Reference Range Interpretation Comme nts HIV 1/2 4TH GEN, RFLX CONF ( test code = 3514) NON-REACTIVE Stuart Mccullough AustinLIPID [id number] 00:00:00* Test Item Value Reference Range Interpretation Comme nts CHOLESTEROL (test code = 2210) 204 MG/DL TRIGLYCERIDES (test code = 2232) 169 MG/DL HDL CHOLESTEROL (test code = 2220) 51 MG/DL CALC LDL CHOL (test code = 2237) 124 MG/DL RISK RATIO LDL/HDL (test cod e = 2238) 2.43 RATIO Stuart GutierrezHIV 1/2 4TH GEN, RFLX [id number] 00:00:00* Test Item Value Reference Range Interpretation Comme nts HIV 1/2 4TH GEN, RFLX CONF ( test code = 3514) NON-REACTIVE Stuart GutierrezLIPID [id number] 00:00:00* Test Item Value Reference Range Interpretation Comme nts CHOLESTEROL (test code = 2210) 204 MG/DL TRIGLYCERIDES (test code = 2232) 169 MG/DL HDL CHOLESTEROL (test code = 2220) 51 MG/DL CALC LDL CHOL (test code = 2237) 124 MG/DL RISK RATIO LDL/HDL (test cod e = 2238) 2.43 RATIO Stuart GutierrezHIV 1/2 4TH GEN, RFLX [id number] 00:00:00* Test Item Value Reference Range Interpretation Comme nts HIV 1/2 4TH GEN, RFLX CONF ( test code = 3514) NON-REACTIVE Stuart Costa (ANTI-NUCLEAR AB) WITH REFLEX [id number] 00:00:00* Test Item Value Reference Range Interpretation Comme nts ANTI-NUCLEAR ANTIBODIES (vinay t code = 3506) NEGATIVE YAZMIN PATTERN (REPORTED TITER) (test code = 04075) SEE BELOW HOMOGENEOUS (test code = 49332) NEGATIVE TITER SPECKLED (test code = 226881) NEGATIVE TITER DENSE FINE SPECKLED (test co de = 09277) NEGATIVE TITER CENTROMERE (test code = 409546) NEGATIVE TITER COARSE SPECKLED (test code = 937288) NEGATIVE TITER DISCRETE NUCLEAR DOTS (test code = 760068) NEGATIVE TITER NUCLEOLAR (test code = 642386) NEGATIVE TITER NUCLEAR MEMBRANE (test code = 401359) NEGATIVE TITER CYTO. RETICULAR (ANASTACIA) (test code = 927958) NEGATIVE COMMENTS (test code = 867583) NONE METHOD (test code = 00716) (NOTE) Stuart Costa (ANTI-NUCLEAR AB) WITH REFLEX [id number] 00:00:00* Test Item Value Reference Range Interpretation Comme nts ANTI-NUCLEAR ANTIBODIES (vinay t code = 3506) NEGATIVE YAZMIN PATTERN (REPORTED TITER) (test code = 54218) SEE BELOW HOMOGENEOUS (test code = 03742) NEGATIVE TITER SPECKLED (test code = 838137) NEGATIVE TITER DENSE FINE SPECKLED (test co de = 65822) NEGATIVE TITER CENTROMERE (test code = 568015) NEGATIVE TITER COARSE SPECKLED (test code = 110511) NEGATIVE TITER DISCRETE NUCLEAR DOTS (test code = 928438) NEGATIVE TITER NUCLEOLAR (test code = 188459) NEGATIVE TITER NUCLEAR MEMBRANE (test code = 176016) NEGATIVE TITER CYTO. RETICULAR (ANASTACIA) (test code = 412769) NEGATIVE COMMENTS (test code = 202286) NONE METHOD (test code = 06060) (NOTE) Stuart GutierrezYAZMIN (ANTI-NUCLEAR AB) WITH REFLEX [id number] 00:00:00* Test Item Value Reference Range Interpretation Comme nts ANTI-NUCLEAR ANTIBODIES (vinay t code = 3506) NEGATIVE YAZMIN PATTERN (REPORTED TITER) (test code = 83044) SEE BELOW HOMOGENEOUS (test code = 01514) NEGATIVE TITER SPECKLED (test code = 568187) NEGATIVE TITER DENSE FINE SPECKLED (test co de = 96243) NEGATIVE TITER CENTROMERE (test code = 618216) NEGATIVE TITER COARSE SPECKLED (test code = 231500) NEGATIVE TITER DISCRETE NUCLEAR DOTS (test code = 464343) NEGATIVE TITER NUCLEOLAR (test code = 925524) NEGATIVE TITER NUCLEAR MEMBRANE (test code = 167320) NEGATIVE TITER CYTO. RETICULAR (ANASTACIA) (test code = 964335) NEGATIVE COMMENTS (test code = 610665) NONE METHOD (test code = 76648) (NOTE) Stuart Mccullough Julissa (ANTI-NUCLEAR AB) WITH REFLEX [id number] 00:00:00* Test Item Value Reference Range Interpretation Comme nts ANTI-NUCLEAR ANTIBODIES (vinay t code = 3506) NEGATIVE YAZMIN PATTERN (REPORTED TITER) (test code = 65626) SEE BELOW HOMOGENEOUS (test code = 15597) NEGATIVE TITER SPECKLED (test code = 679362) NEGATIVE TITER DENSE FINE SPECKLED (test co de = 23009) NEGATIVE TITER CENTROMERE (test code = 095695) NEGATIVE TITER COARSE SPECKLED (test code = 481442) NEGATIVE TITER DISCRETE NUCLEAR DOTS (test code = 598781) NEGATIVE TITER NUCLEOLAR (test code = 710581) NEGATIVE TITER NUCLEAR MEMBRANE (test code = 377747) NEGATIVE TITER CYTO. RETICULAR (ANASTACIA) (test code = 618673) NEGATIVE COMMENTS (test code = 509739) NONE METHOD (test code = 79501) (NOTE) Stuart Costa (ANTI-NUCLEAR AB) WITH REFLEX [id number] 00:00:00* Test Item Value Reference Range Interpretation Comme nts ANTI-NUCLEAR ANTIBODIES (vinay t code = 3506) NEGATIVE YAZMIN PATTERN (REPORTED TITER) (test code = 95783) SEE BELOW HOMOGENEOUS (test code = 80813) NEGATIVE TITER SPECKLED (test code = 746777) NEGATIVE TITER DENSE FINE SPECKLED (test co de = 32716) NEGATIVE TITER CENTROMERE (test code = 729265) NEGATIVE TITER COARSE SPECKLED (test code = 688851) NEGATIVE TITER DISCRETE NUCLEAR DOTS (test code = 707812) NEGATIVE TITER NUCLEOLAR (test code = 342508) NEGATIVE TITER NUCLEAR MEMBRANE (test code = 095817) NEGATIVE TITER CYTO. RETICULAR (ANASTACIA) (test code = 895241) NEGATIVE COMMENTS (test code = 702807) NONE METHOD (test code = 53424) (NOTE) Stuart Sandy, [id number] 00:00:00* Test Item Value Reference Range Interpretation Comme nts CK, TOTAL (test code = 2013) 674 U/L Stuart GutierrezCBC W/AUTO [id number] 00:00:00* Test Item Value Reference Range Interpretation [...] ABS NUCLEATED RBCS (test cod e = 03338) 0.00 K/UL Stuart GutierrezSEDIMENTATION [id number] 00:00:00* Test Item Value Reference Range Interpretation Comme nts SEDIMENTATION RATE (test cod e = 1017) 10 MM/HOUR Stuart GutierrezHIGH SENSITIVITY [id number] 00:00:00* Test Item Value Reference Range Interpretation Comme nts HIGH SENSITIVITY CRP (test c ode = 21429) 1.5 MG/L Stuart GutierrezRHEUMATOID FACTOR, [id number] 00:00:00* Test Item Value Reference Range Interpretation Comme nts RHEUMATOID FACTOR, QUANT (te st code = 3502) <10 IU/ML Stuart GutierrezCK, [id number] 00:00:00* Test Item Value Reference Range Interpretation Comme nts CK, TOTAL (test code = 2013) 674 U/L Stuart GuiterrezCBC W/AUTO [id number] 00:00:00* Test Item Value Reference Range Interpretation [...] ABS NUCLEATED RBCS (test cod e = 38251) 0.00 K/UL Stuart GutierrezSEDIMENTATION [id number] 00:00:00* Test Item Value Reference Range Interpretation Comme nts SEDIMENTATION RATE (test cod e = 1017) 10 MM/HOUR Stuart GutierrezHIGH SENSITIVITY [id number] 00:00:00* Test Item Value Reference Range Interpretation Comme nts HIGH SENSITIVITY CRP (test c ode = 79326) 1.5 MG/L Stuart GutierrezRHEUMATOID FACTOR, [id number] 00:00:00* Test Item Value Reference Range Interpretation Comme nts RHEUMATOID FACTOR, QUANT (te st code = 3502) <10 IU/ML Stuart GutierrezCK, [id number] 00:00:00* Test Item Value Reference Range Interpretation Comme nts CK, TOTAL (test code = 2013) 674 U/L Stuart GutierrezCBC W/AUTO [id number] 00:00:00* Test Item Value Reference Range Interpretation [...] ABS NUCLEATED RBCS (test cod e = 74122) 0.00 K/UL Stuart GutierrezSEDIMENTATION [id number] 00:00:00* Test Item Value Reference Range Interpretation Comme nts SEDIMENTATION RATE (test cod e = 1017) 10 MM/HOUR Stuart GutierrezHIGH SENSITIVITY [id number] 00:00:00* Test Item Value Reference Range Interpretation Comme nts HIGH SENSITIVITY CRP (test c ode = 91988) 1.5 MG/L Stuart GutierrezRHEUMATOID FACTOR, [id number] 00:00:00* Test Item Value Reference Range Interpretation Comme nts RHEUMATOID FACTOR, QUANT (te st code = 3502) <10 IU/ML Stuart Mccullough MattCK, [id number] 00:00:00* Test Item Value Reference Range Interpretation Comme nts CK, TOTAL (test code = 2013) 674 U/L Stuart GutierrezCBC W/AUTO [id number] 00:00:00* Test Item Value Reference Range Interpretation [...] ABS NUCLEATED RBCS (test cod e = 73065) 0.00 K/UL Stuart GutierrezSEDIMENTATION [id number] 00:00:00* Test Item Value Reference Range Interpretation Comme nts SEDIMENTATION RATE (test cod e = 1017) 10 MM/HOUR Stuart GutierrezHIGH SENSITIVITY [id number] 00:00:00* Test Item Value Reference Range Interpretation Comme nts HIGH SENSITIVITY CRP (test c ode = 46392) 1.5 MG/L Stuart GutierrezRHEUMATOID FACTOR, [id number] 00:00:00* Test Item Value Reference Range Interpretation Comme nts RHEUMATOID FACTOR, QUANT (te st code = 3502) <10 IU/ML Stuart Mccullough MattCK, [id number] 00:00:00* Test Item Value Reference Range Interpretation Comme nts CK, TOTAL (test code = 2013) 674 U/L Stuart Mccullough MattCBC W/AUTO [id number] 00:00:00* Test Item Value Reference Range Interpretation [...] ABS NUCLEATED RBCS (test cod e = 12044) 0.00 K/UL Stuart F AustinSEDIMENTATION [id number] 00:00:00* Test Item Value Reference Range Interpretation Comme nts SEDIMENTATION RATE (test cod e = 1017) 10 MM/HOUR Stuart F AustinHIGH SENSITIVITY [id number] 00:00:00* Test Item Value Reference Range Interpretation Comme nts HIGH SENSITIVITY CRP (test c ode = 94516) 1.5 MG/L Stuart F AustinRHEUMATOID FACTOR, [id number] 00:00:00* Test Item Value Reference Range Interpretation Comme nts RHEUMATOID FACTOR, QUANT (te st code = 3502) <10 IU/ML Stuart F AustinCOMPREHENSIVE METABOLIC [id number] 00:00:00* Test Item Value Reference Range Interpretation Comme nts GLUCOSE (test code = 2217) 86 MG/DL BUN (test code = 2208) 9 MG/DL CREATININE (test code = 2214) 1.11 MG/DL eGFR (2020 CKD-EPI) (test co de = 89240) 59 ML/MIN/1.73 CALC BUN/CREAT (test code = [...] code = 2219) 16 U/L Stuart GutierrezHEMOGLOBIN [id number] 00:00:00* Test Item Value Reference Range Interpretation Comme nts HEMOGLOBIN A1c (test code = 31099) 5.6 % Stuart GutierrezLIPID [id number] 00:00:00* Test Item Value Reference Range Interpretation Comme nts CHOLESTEROL (test code = 2210) 169 MG/DL TRIGLYCERIDES (test code = 2232) 198 MG/DL HDL CHOLESTEROL (test code = 2220) 48 MG/DL CALC LDL CHOL (test code = 2237) 91 MG/DL RISK RATIO LDL/HDL (test cod e = 2238) 1.90 RATIO Stuart GutierrezTSH, THIRD [id number] 00:00:00* Test Item Value Reference Range Interpretation Comme nts TSH, THIRD GENERATION (test code = 2821) 1.420 UIU/ML Stuart GutierrezCOMPREHENSIVE METABOLIC [id number] 00:00:00* Test Item Value Reference Range Interpretation Comme nts GLUCOSE (test code = 2217) 86 MG/DL BUN (test code = 2208) 9 MG/DL CREATININE (test code = 2214) 1.11 MG/DL eGFR (2020 CKD-EPI) (test co de = 46529) 59 ML/MIN/1.73 CALC BUN/CREAT (test code = [...] code = 2219) 16 U/L Stuart GutierrezHEMOGLOBIN [id number] 00:00:00* Test Item Value Reference Range Interpretation Comme nts HEMOGLOBIN A1c (test code = 19317) 5.6 % Stuart GutierrezLIPID [id number] 00:00:00* Test Item Value Reference Range Interpretation Comme nts CHOLESTEROL (test code = 2210) 169 MG/DL TRIGLYCERIDES (test code = 2232) 198 MG/DL HDL CHOLESTEROL (test code = 2220) 48 MG/DL CALC LDL CHOL (test code = 2237) 91 MG/DL RISK RATIO LDL/HDL (test cod e = 2238) 1.90 RATIO Stuart GutierrezTSH, THIRD [id number] 00:00:00* Test Item Value Reference Range Interpretation Comme nts TSH, THIRD GENERATION (test code = 2821) 1.420 UIU/ML Stuart GutierrezCOMPREHENSIVE METABOLIC [id number] 00:00:00* Test Item Value Reference Range Interpretation Comme nts GLUCOSE (test code = 2217) 86 MG/DL BUN (test code = 2208) 9 MG/DL CREATININE (test code = 2214) 1.11 MG/DL eGFR (2020 CKD-EPI) (test co de = 12994) 59 ML/MIN/1.73 CALC BUN/CREAT (test code = [...] code = 2219) 16 U/L Stuart GutierrezHEMOGLOBIN [id number] 00:00:00* Test Item Value Reference Range Interpretation Comme azra HEMOGLOBIN A1c (test code = 46668) 5.6 % Stuart GutierrezLIPID [id number] 00:00:00* Test Item Value Reference Range Interpretation Comme nts CHOLESTEROL (test code = 2210) 169 MG/DL TRIGLYCERIDES (test code = 2232) 198 MG/DL HDL CHOLESTEROL (test code = 2220) 48 MG/DL CALC LDL CHOL (test code = 2237) 91 MG/DL RISK RATIO LDL/HDL (test cod e = 2238) 1.90 RATIO Stuart GutierrezTSH, THIRD [id number] 00:00:00* Test Item Value Reference Range Interpretation Comme azra TSH, THIRD GENERATION (test code = 2821) 1.420 UIU/ML Stuart GutierrezCOMPREHENSIVE METABOLIC [id number] 00:00:00* Test Item Value Reference Range Interpretation Comme nts GLUCOSE (test code = 2217) 86 MG/DL BUN (test code = 2208) 9 MG/DL CREATININE (test code = 2214) 1.11 MG/DL eGFR (2020 CKD-EPI) (test co de = 18889) 59 ML/MIN/1.73 CALC BUN/CREAT (test code = [...] code = 2219) 16 U/L Stuart GutierrezHEMOGLOBIN [id number] 00:00:00* Test Item Value Reference Range Interpretation Comme azra HEMOGLOBIN A1c (test code = 77637) 5.6 % Stuart GutierrezLIPID [id number] 00:00:00* Test Item Value Reference Range Interpretation Comme nts CHOLESTEROL (test code = 2210) 169 MG/DL TRIGLYCERIDES (test code = 2232) 198 MG/DL HDL CHOLESTEROL (test code = 2220) 48 MG/DL CALC LDL CHOL (test code = 2237) 91 MG/DL RISK RATIO LDL/HDL (test cod e = 2238) 1.90 RATIO Stuart GutierrezTSH, THIRD [id number] 00:00:00* Test Item Value Reference Range Interpretation Comme azra TSH, THIRD GENERATION (test code = 2821) 1.420 UIU/ML Stuart GutierrezCOMPREHENSIVE METABOLIC [id number] 00:00:00* Test Item Value Reference Range Interpretation Comme nts GLUCOSE (test code = 2217) 86 MG/DL BUN (test code = 2208) 9 MG/DL CREATININE (test code = 2214) 1.11 MG/DL eGFR (2020 CKD-EPI) (test co de = 03476) 59 ML/MIN/1.73 CALC BUN/CREAT (test code = [...] code = 2219) 16 U/L Stuart GutierrezHEMOGLOBIN [id number] 00:00:00* Test Item Value Reference Range Interpretation Comme azra HEMOGLOBIN A1c (test code = 31830) 5.6 % Stuart GutierrezLIPID [id number] 00:00:00* Test Item Value Reference Range Interpretation Comme nts CHOLESTEROL (test code = 2210) 169 MG/DL TRIGLYCERIDES (test code = 2232) 198 MG/DL HDL CHOLESTEROL (test code = 2220) 48 MG/DL CALC LDL CHOL (test code = 2237) 91 MG/DL RISK RATIO LDL/HDL (test cod e = 2238) 1.90 RATIO Stuart GutierrezTSH, THIRD [id number] 00:00:00* Test Item Value Reference Range Interpretation Comme nts TSH, THIRD GENERATION (test code = 2821) 1.420 UIU/ML Stuart GutierrezCOMPREHENSIVE METABOLIC [id number] 00:00:00* Test Item Value Reference Range Interpretation Comme nts GLUCOSE (test code = 2217) 86 MG/DL BUN (test code = 2208) 9 MG/DL CREATININE (test code = 2214) 1.11 MG/DL eGFR (2020 CKD-EPI) (test co de = 64514) 59 ML/MIN/1.73 CALC BUN/CREAT (test code = [...] code = 2219) 16 U/L Stuart GutierrezHEMOGLOBIN [id number] 00:00:00* Test Item Value Reference Range Interpretation Comme nts HEMOGLOBIN A1c (test code = 90541) 5.6 % Stuart GutierrezLIPID [id number] 00:00:00* Test Item Value Reference Range Interpretation Comme nts CHOLESTEROL (test code = 2210) 169 MG/DL TRIGLYCERIDES (test code = 2232) 198 MG/DL HDL CHOLESTEROL (test code = 2220) 48 MG/DL CALC LDL CHOL (test code = 2237) 91 MG/DL RISK RATIO LDL/HDL (test cod e = 2238) 1.90 RATIO Stuart GutierrezTSH, THIRD [id number] 00:00:00* Test Item Value Reference Range Interpretation Comme nts TSH, THIRD GENERATION (test code = 2821) 1.420 UIU/ML Stuart GutierrezCOMPREHENSIVE METABOLIC [id number] 00:00:00* Test Item Value Reference Range Interpretation Comme nts GLUCOSE (test code = 2217) 86 MG/DL BUN (test code = 2208) 9 MG/DL CREATININE (test code = 2214) 1.11 MG/DL eGFR (2020 CKD-EPI) (test co de = 41289) 59 ML/MIN/1.73 CALC BUN/CREAT (test code = [...] code = 2219) 16 U/L Stuart GutierrezHEMOGLOBIN [id number] 00:00:00* Test Item Value Reference Range Interpretation Comme azra HEMOGLOBIN A1c (test code = 17479) 5.6 % Stuart GutierrezLIPID [id number] 00:00:00* Test Item Value Reference Range Interpretation Comme nts CHOLESTEROL (test code = 2210) 169 MG/DL TRIGLYCERIDES (test code = 2232) 198 MG/DL HDL CHOLESTEROL (test code = 2220) 48 MG/DL CALC LDL CHOL (test code = 2237) 91 MG/DL RISK RATIO LDL/HDL (test cod e = 2238) 1.90 RATIO Stuart GutierrezTSH, THIRD [id number] 00:00:00* Test Item Value Reference Range Interpretation Comme nts TSH, THIRD GENERATION (test code = 2821) 1.420 UIU/ML Stuart GutierrezCOMPREHENSIVE METABOLIC [id number] 00:00:00* Test Item Value Reference Range Interpretation Comme nts GLUCOSE (test code = 2217) 86 MG/DL BUN (test code = 2208) 9 MG/DL CREATININE (test code = 2214) 1.11 MG/DL eGFR (2020 CKD-EPI) (test co de = 38044) 59 ML/MIN/1.73 CALC BUN/CREAT (test code = [...] code = 2219) 16 U/L Stuart GutierrezHEMOGLOBIN [id number] 00:00:00* Test Item Value Reference Range Interpretation Comme azra HEMOGLOBIN A1c (test code = 66521) 5.6 % Stuart GutierrezLIPID [id number] 00:00:00* Test Item Value Reference Range Interpretation Comme nts CHOLESTEROL (test code = 2210) 169 MG/DL TRIGLYCERIDES (test code = 2232) 198 MG/DL HDL CHOLESTEROL (test code = 2220) 48 MG/DL CALC LDL CHOL (test code = 2237) 91 MG/DL RISK RATIO LDL/HDL (test cod e = 2238) 1.90 RATIO Stuart GutierrezTSH, THIRD [id number] 00:00:00* Test Item Value Reference Range Interpretation Comme azra TSH, THIRD GENERATION (test code = 2821) 1.420 UIU/ML Stuart Mccullough AustinURINALYSIS W/REFLEX [id number] 00:00:00* Test Item Value Reference Range Interpretation [...] = 1512) NEGATIVE Stuart Mccullough AustinURINALYSIS W/REFLEX [id number] 00:00:00* Test Item Value Reference Range Interpretation [...] = 1512) NEGATIVE Stuart Mccullough AustinURINALYSIS W/REFLEX [id number] 00:00:00* Test Item Value Reference Range Interpretation [...] = 1512) NEGATIVE Stuart F AustinURINALYSIS W/REFLEX [id number] 00:00:00* Test Item Value Reference Range Interpretation [...] = 1512) NEGATIVE Stuart F AustinURINALYSIS W/REFLEX [id number] 00:00:00* Test Item Value Reference Range Interpretation [...] = 1512) NEGATIVE Stuart F AustinURINALYSIS W/REFLEX [id number] 00:00:00* Test Item Value Reference Range Interpretation [...] = 1512) NEGATIVE Stuart F AustinURINALYSIS W/REFLEX [id number] 00:00:00* Test Item Value Reference Range Interpretation [...] = 1512) NEGATIVE Stuart F AustinURINALYSIS W/REFLEX [id number] 00:00:00* Test Item Value Reference Range Interpretation [...] = 1512) NEGATIVE Stuart F AustinURINALYSIS W/REFLEX [id number] 00:00:00* Test Item Value Reference Range Interpretation [...] = 1512) NEGATIVE Stuart Mccullough AustinURINALYSIS W/REFLEX [id number] 00:00:00* Test Item Value Reference Range Interpretation [...] (test code = 1512) NEGATIVE Stuart GutierrezLIPID [id number] 00:00:00* Test Item Value Reference Range Interpretation Comme nts CHOLESTEROL (test code = 2210) 173 MG/DL TRIGLYCERIDES (test code = 2232) 208 MG/DL HDL CHOLESTEROL (test code = 2220) 51 MG/DL CALC LDL CHOL (test code = 2237) 92 MG/DL RISK RATIO LDL/HDL (test cod e = 2238) 1.80 RATIO Stuart GutierrezHEMOGLOBIN [id number] 00:00:00* Test Item Value Reference Range Interpretation Comme nts HEMOGLOBIN A1c (test code = 89318) 5.5 % Stuart GutierrezCOMPREHENSIVE METABOLIC [id number] 00:00:00* Test Item Value Reference Range Interpretation Comme nts GLUCOSE (test code = 2217) 89 MG/DL BUN (test code = 2208) 8 MG/DL CREATININE (test code = 2214) 0.80 MG/DL eGFR (2020 CKD-EPI) (test co de = 13329) 89 ML/MIN/1.73 CALC BUN/CREAT (test code = [...] code = 2219) 13 U/L Stuart GutierrezLIPID [id number] 00:00:00* Test Item Value Reference Range Interpretation Comme nts CHOLESTEROL (test code = 2210) 173 MG/DL TRIGLYCERIDES (test code = 2232) 208 MG/DL HDL CHOLESTEROL (test code = 2220) 51 MG/DL CALC LDL CHOL (test code = 2237) 92 MG/DL RISK RATIO LDL/HDL (test cod e = 2238) 1.80 RATIO Stuart GutierrezHEMOGLOBIN [id number] 00:00:00* Test Item Value Reference Range Interpretation Comme nts HEMOGLOBIN A1c (test code = 17244) 5.5 % Stuart GutierrezCOMPREHENSIVE METABOLIC [id number] 00:00:00* Test Item Value Reference Range Interpretation Comme nts GLUCOSE (test code = 2217) 89 MG/DL BUN (test code = 8) 8 MG/DL CREATININE (test code = 2214) 0.80 MG/DL eGFR (2020 CKD-EPI) (test co de = 31439) 89 ML/MIN/1.73 CALC BUN/CREAT (test code = [...] code = 2219) 13 U/L Stuart GutierrezLIPID [id number] 00:00:00* Test Item Value Reference Range Interpretation Comme nts CHOLESTEROL (test code = 2210) 173 MG/DL TRIGLYCERIDES (test code = 2232) 208 MG/DL HDL CHOLESTEROL (test code = 2220) 51 MG/DL CALC LDL CHOL (test code = 2237) 92 MG/DL RISK RATIO LDL/HDL (test cod e = 2238) 1.80 RATIO Stuart GutierrezHEMOGLOBIN [id number] 00:00:00* Test Item Value Reference Range Interpretation Comme azra HEMOGLOBIN A1c (test code = 77619) 5.5 % Stuart GutierrezCOMPREHENSIVE METABOLIC [id number] 00:00:00* Test Item Value Reference Range Interpretation Comme nts GLUCOSE (test code = 2217) 89 MG/DL BUN (test code = 2208) 8 MG/DL CREATININE (test code = 2214) 0.80 MG/DL eGFR (2020 CKD-EPI) (test co de = 46982) 89 ML/MIN/1.73 CALC BUN/CREAT (test code = [...] = 2219) 13 U/L Stuart Mccullough AustinLIPID [id number] 00:00:00* Test Item Value Reference Range Interpretation Comme nts CHOLESTEROL (test code = 2210) 173 MG/DL TRIGLYCERIDES (test code = 2232) 208 MG/DL HDL CHOLESTEROL (test code = 2220) 51 MG/DL CALC LDL CHOL (test code = 2237) 92 MG/DL RISK RATIO LDL/HDL (test cod e = 2238) 1.80 RATIO Stuart GutierrezHEMOGLOBIN [id number] 00:00:00* Test Item Value Reference Range Interpretation Comme nts HEMOGLOBIN A1c (test code = 94458) 5.5 % Stuart GutierrezCOMPREHENSIVE METABOLIC [id number] 00:00:00* Test Item Value Reference Range Interpretation Comme nts GLUCOSE (test code = 2217) 89 MG/DL BUN (test code = 2208) 8 MG/DL CREATININE (test code = 2214) 0.80 MG/DL eGFR (2020 CKD-EPI) (test co de = 33909) 89 ML/MIN/1.73 CALC BUN/CREAT (test code = [...] code = 2219) 13 U/L Stuart GutierrezLIPID [id number] 00:00:00* Test Item Value Reference Range Interpretation Comme nts CHOLESTEROL (test code = 2210) 173 MG/DL TRIGLYCERIDES (test code = 2232) 208 MG/DL HDL CHOLESTEROL (test code = 2220) 51 MG/DL CALC LDL CHOL (test code = 2237) 92 MG/DL RISK RATIO LDL/HDL (test cod e = 2238) 1.80 RATIO Stuart GutierrezHEMOGLOBIN [id number] 00:00:00* Test Item Value Reference Range Interpretation Comme nts HEMOGLOBIN A1c (test code = 38608) 5.5 % Stuart GutierrezCOMPREHENSIVE METABOLIC [id number] 00:00:00* Test Item Value Reference Range Interpretation Comme nts GLUCOSE (test code = 2217) 89 MG/DL BUN (test code = 2208) 8 MG/DL CREATININE (test code = 2214) 0.80 MG/DL eGFR (2020 CKD-EPI) (test co de = 25467) 89 ML/MIN/1.73 CALC BUN/CREAT (test code = [...] = 2219) 13 U/L Stuart Mccullough AustinLIPID [id number] 00:00:00* Test Item Value Reference Range Interpretation Comme nts CHOLESTEROL (test code = 2210) 173 MG/DL TRIGLYCERIDES (test code = 2232) 208 MG/DL HDL CHOLESTEROL (test code = 2220) 51 MG/DL CALC LDL CHOL (test code = 2237) 92 MG/DL RISK RATIO LDL/HDL (test cod e = 2238) 1.80 RATIO Stuart GutierrezHEMOGLOBIN [id number] 00:00:00* Test Item Value Reference Range Interpretation Comme nts HEMOGLOBIN A1c (test code = 64286) 5.5 % Stuart Mccullough AustinCOMPREHENSIVE METABOLIC [id number] 00:00:00* Test Item Value Reference Range Interpretation Comme nts GLUCOSE (test code = 2217) 89 MG/DL BUN (test code = 2208) 8 MG/DL CREATININE (test code = 2214) 0.80 MG/DL eGFR (2020 CKD-EPI) (test co de = 86401) 89 ML/MIN/1.73 CALC BUN/CREAT (test code = [...] code = 2219) 13 U/L Stuart GutierrezLIPID [id number] 00:00:00* Test Item Value Reference Range Interpretation Comme nts CHOLESTEROL (test code = 2210) 173 MG/DL TRIGLYCERIDES (test code = 2232) 208 MG/DL HDL CHOLESTEROL (test code = 2220) 51 MG/DL CALC LDL CHOL (test code = 2237) 92 MG/DL RISK RATIO LDL/HDL (test cod e = 2238) 1.80 RATIO Stuart GutierrezHEMOGLOBIN [id number] 00:00:00* Test Item Value Reference Range Interpretation Comme nts HEMOGLOBIN A1c (test code = 76613) 5.5 % Stuart Mccullough AustinCOMPREHENSIVE METABOLIC [id number] 00:00:00* Test Item Value Reference Range Interpretation Comme nts GLUCOSE (test code = 2217) 89 MG/DL BUN (test code = 2208) 8 MG/DL CREATININE (test code = 2214) 0.80 MG/DL eGFR (2020 CKD-EPI) (test co de = 56248) 89 ML/MIN/1.73 CALC BUN/CREAT (test code = [...] code = 2219) 13 U/L Stuart Mccullough DendronLIPID [id number] 00:00:00* Test Item Value Reference Range Interpretation Comme nts CHOLESTEROL (test code = 2210) 173 MG/DL TRIGLYCERIDES (test code = 2232) 208 MG/DL HDL CHOLESTEROL (test code = 2220) 51 MG/DL CALC LDL CHOL (test code = 2237) 92 MG/DL RISK RATIO LDL/HDL (test cod e = 2238) 1.80 RATIO Stuart GutierrezHEMOGLOBIN [id number] 00:00:00* Test Item Value Reference Range Interpretation Comme nts HEMOGLOBIN A1c (test code = 58229) 5.5 % Stuart Mccullough MattCOMPREHENSIVE METABOLIC [id number] 00:00:00* Test Item Value Reference Range Interpretation Comme nts GLUCOSE (test code = 2217) 89 MG/DL BUN (test code = 2208) 8 MG/DL CREATININE (test code = 2214) 0.80 MG/DL eGFR (2020 CKD-EPI) (test co de = 82564) 89 ML/MIN/1.73 CALC BUN/CREAT (test code = [...] code = 2219) 13 U/L Stuart GutierrezLIPID [id number] 00:00:00* Test Item Value Reference Range Interpretation Comme nts CHOLESTEROL (test code = 2210) 173 MG/DL TRIGLYCERIDES (test code = 2232) 208 MG/DL HDL CHOLESTEROL (test code = 2220) 51 MG/DL CALC LDL CHOL (test code = 2237) 92 MG/DL RISK RATIO LDL/HDL (test cod e = 2238) 1.80 RATIO Stuart GutierrezHEMOGLOBIN [id number] 00:00:00* Test Item Value Reference Range Interpretation Comme nts HEMOGLOBIN A1c (test code = 98429) 5.5 % Stuart GutierrezCOMPREHENSIVE METABOLIC [id number] 00:00:00* Test Item Value Reference Range Interpretation Comme nts GLUCOSE (test code = 2217) 89 MG/DL BUN (test code = 2208) 8 MG/DL CREATININE (test code = 2214) 0.80 MG/DL eGFR (2020 CKD-EPI) (test co de = 78896) 89 ML/MIN/1.73 CALC BUN/CREAT (test code = [...] code = 2219) 13 U/L Stuart GutierrezLIPID [id number] 00:00:00* Test Item Value Reference Range Interpretation Comme nts CHOLESTEROL (test code = 2210) 173 MG/DL TRIGLYCERIDES (test code = 2232) 208 MG/DL HDL CHOLESTEROL (test code = 2220) 51 MG/DL CALC LDL CHOL (test code = 2237) 92 MG/DL RISK RATIO LDL/HDL (test cod e = 2238) 1.80 RATIO Stuart GutierrezHEMOGLOBIN [id number] 00:00:00* Test Item Value Reference Range Interpretation Comme nts HEMOGLOBIN A1c (test code = 54342) 5.5 % Stuart Mccullough MattCOMPREHENSIVE METABOLIC [id number] 00:00:00* Test Item Value Reference Range Interpretation Comme nts GLUCOSE (test code = 2217) 89 MG/DL BUN (test code = 2208) 8 MG/DL CREATININE (test code = 2214) 0.80 MG/DL eGFR (2020 CKD-EPI) (test co de = 86730) 89 ML/MIN/1.73 CALC BUN/CREAT (test code = [...] 13 U/L Stuart GutierrezGC AND CHLAMYDIA AMPLIFIED, [id number] 00:00:00* Test Item Value Reference Range Interpretation Comme nts CHLAMYDIA, NAAT, THINPREP (t est code = 93212) NEGATIVE GONORRHEA, NAAT, THINPREP (t est code = 55924) NEGATIVE Stuart Mccullough AustinPAP TEST, THINPREP, [id number] 00:00:00* Test Item Value Reference Range Interpretation Comme nts SOURCE: (test code = 8001) Cervical/Endocervical SLIDES: (test code = 8011) 1 LMP: (test code = 8021) NOT GIVEN SPECIMEN ADEQUACY: (test code = 24215) (NOTE) INTERPRETATION: (test code = 86953) NILM/NO EPITH. ABNORMALITY;SEE BELOW OTHER COMMENTS: (test code = 8081) (NOTE) SKI PATROLLER: (test code = 8101) Rosie Cruz LOCATION: (test code = 70406) (NOTE) CPT: (test code = 8140) (NOTE) Stuart GutierrezHPV HIGH RISK WITH GENOTYPE, [id number] 00:00:00* Test Item Value Reference Range Interpretation Comme nts HPV HIGH RISK INTERP (test c ode = 90457) NEGATIVE HPV 16 (test code = 60260) NEGATIVE HPV 18 (test code = 08466) NEGATIVE HPV, HR, OTHER GENOTYPES (te st code = 97733) NEGATIVE Stuart GutierrezGC AND CHLAMYDIA AMPLIFIED, [id number] 00:00:00* Test Item Value Reference Range Interpretation Comme nts CHLAMYDIA, NAAT, THINPREP (t est code = 44196) NEGATIVE GONORRHEA, NAAT, THINPREP (t est code = 06147) NEGATIVE Stuart GutierrezPAP TEST, THINPREP, [id number] 00:00:00* Test Item Value Reference Range Interpretation Comme nts SOURCE: (test code = 8001) Cervical/Endocervical SLIDES: (test code = 8011) 1 LMP: (test code = 8021) NOT GIVEN SPECIMEN ADEQUACY: (test code = 30514) (NOTE) INTERPRETATION: (test code = 16256) NILM/NO EPITH. ABNORMALITY;SEE BELOW OTHER COMMENTS: (test code = 8081) (NOTE) SKI PATROLLER: (test code = 8101) [facility] LOCATION: (test code = 94601) (NOTE) CPT: (test code = 8140) (NOTE) Stuart Mccullough AustinHPV HIGH RISK WITH GENOTYPE, [id number] 00:00:00* Test Item Value Reference Range Interpretation Comme nts HPV HIGH RISK INTERP (test c ode = 88832) NEGATIVE HPV 16 (test code = 39953) NEGATIVE HPV 18 (test code = 96339) NEGATIVE HPV, HR, OTHER GENOTYPES (te st code = 82929) NEGATIVE Stuart Mccullough AustinGC AND CHLAMYDIA AMPLIFIED, [id number] 00:00:00* Test Item Value Reference Range Interpretation Comme nts CHLAMYDIA, NAAT, THINPREP (t est code = 61979) NEGATIVE GONORRHEA, NAAT, THINPREP (t est code = 64164) NEGATIVE Stuart F AustinPAP TEST, THINPREP, [id number] 00:00:00* Test Item Value Reference Range Interpretation Comme nts SOURCE: (test code = 8001) Cervical/Endocervical SLIDES: (test code = 8011) 1 LMP: (test code = 8021) NOT GIVEN SPECIMEN ADEQUACY: (test code = 79553) (NOTE) INTERPRETATION: (test code = 72535) NILM/NO EPITH. ABNORMALITY;SEE BELOW OTHER COMMENTS: (test code = 8081) (NOTE) SKI PATROLLER: (test code = 8101) [facility] LOCATION: (test code = 07970) (NOTE) CPT: (test code = 8140) (NOTE) Stuart Mccullough AustinHPV HIGH RISK WITH GENOTYPE, [id number] 00:00:00* Test Item Value Reference Range Interpretation Comme nts HPV HIGH RISK INTERP (test c ode = 57118) NEGATIVE HPV 16 (test code = 39319) NEGATIVE HPV 18 (test code = 85497) NEGATIVE HPV, HR, OTHER GENOTYPES (te st code = 46111) NEGATIVE Stuart F AustinGC AND CHLAMYDIA AMPLIFIED, [id number] 00:00:00* Test Item Value Reference Range Interpretation Comme nts CHLAMYDIA, NAAT, THINPREP (t est code = 02662) NEGATIVE GONORRHEA, NAAT, THINPREP (t est code = 54649) NEGATIVE Stuart F AustinPAP TEST, THINPREP, [id number] 00:00:00* Test Item Value Reference Range Interpretation Comme nts SOURCE: (test code = 8001) Cervical/Endocervical SLIDES: (test code = 8011) 1 LMP: (test code = 8021) NOT GIVEN SPECIMEN ADEQUACY: (test code = 51550) (NOTE) INTERPRETATION: (test code = 02550) NILM/NO EPITH. ABNORMALITY;SEE BELOW OTHER COMMENTS: (test code = 8081) (NOTE) SKI PATROLLER: (test code = 8101) [facility] LOCATION: (test code = 22661) (NOTE) CPT: (test code = 8140) (NOTE) Stuart Mccullough AustinHPV HIGH RISK WITH GENOTYPE, [id number] 00:00:00* Test Item Value Reference Range Interpretation Comme nts HPV HIGH RISK INTERP (test c ode = 86721) NEGATIVE HPV 16 (test code = 40412) NEGATIVE HPV 18 (test code = 01341) NEGATIVE HPV, HR, OTHER GENOTYPES (te st code = 79289) NEGATIVE Stuart Mccullough AustinGC AND CHLAMYDIA AMPLIFIED, [id number] 00:00:00* Test Item Value Reference Range Interpretation Comme nts CHLAMYDIA, NAAT, THINPREP (t est code = 40569) NEGATIVE GONORRHEA, NAAT, THINPREP (t est code = 61771) NEGATIVE Stuart GutierrezPAP TEST, THINPREP, [id number] 00:00:00* Test Item Value Reference Range Interpretation Comme nts SOURCE: (test code = 8001) Cervical/Endocervical SLIDES: (test code = 8011) 1 LMP: (test code = 8021) NOT GIVEN SPECIMEN ADEQUACY: (test code = 82859) (NOTE) INTERPRETATION: (test code = 99019) NILM/NO EPITH. ABNORMALITY;SEE BELOW OTHER COMMENTS: (test code = 8081) (NOTE) SKI PATROLLER: (test code = 8101) [facility] LOCATION: (test code = 24179) (NOTE) CPT: (test code = 8140) (NOTE) Stuart Mccullough AustinHPV HIGH RISK WITH GENOTYPE, [id number] 00:00:00* Test Item Value Reference Range Interpretation Comme nts HPV HIGH RISK INTERP (test c ode = 31194) NEGATIVE HPV 16 (test code = 52948) NEGATIVE HPV 18 (test code = 02284) NEGATIVE HPV, HR, OTHER GENOTYPES (te st code = 16684) NEGATIVE Stuart GutierrezGC AND CHLAMYDIA AMPLIFIED, [id number] 00:00:00* Test Item Value Reference Range Interpretation Comme nts CHLAMYDIA, NAAT, THINPREP (t est code = 29934) NEGATIVE GONORRHEA, NAAT, THINPREP (t est code = 38107) NEGATIVE Stuart GutierrezPAP TEST, THINPREP, [id number] 00:00:00* Test Item Value Reference Range Interpretation Comme nts SOURCE: (test code = 8001) Cervical/Endocervical SLIDES: (test code = 8011) 1 LMP: (test code = 8021) NOT GIVEN SPECIMEN ADEQUACY: (test code = 35635) (NOTE) INTERPRETATION: (test code = 57204) NILM/NO EPITH. ABNORMALITY;SEE BELOW OTHER COMMENTS: (test code = 8081) (NOTE) SKI PATROLLER: (test code = 8101) Rosie Cruz LOCATION: (test code = 10861) (NOTE) CPT: (test code = 8140) (NOTE) Stuart GutierrezHPV HIGH RISK WITH GENOTYPE, [id number] 00:00:00* Test Item Value Reference Range Interpretation Comme nts HPV HIGH RISK INTERP (test c ode = 68321) NEGATIVE HPV 16 (test code = 19347) NEGATIVE HPV 18 (test code = 85121) NEGATIVE HPV, HR, OTHER GENOTYPES (te st code = 86460) NEGATIVE Stuart GutierrezGC AND CHLAMYDIA AMPLIFIED, [id number] 00:00:00* Test Item Value Reference Range Interpretation Comme nts CHLAMYDIA, NAAT, THINPREP (t est code = 52411) NEGATIVE GONORRHEA, NAAT, THINPREP (t est code = 91014) NEGATIVE Stuart GutierrezPAP TEST, THINPREP, [id number] 00:00:00* Test Item Value Reference Range Interpretation Comme nts SOURCE: (test code = 8001) Cervical/Endocervical SLIDES: (test code = 8011) 1 LMP: (test code = 8021) NOT GIVEN SPECIMEN ADEQUACY: (test code = 66222) (NOTE) INTERPRETATION: (test code = 63812) NILM/NO EPITH. ABNORMALITY;SEE BELOW OTHER COMMENTS: (test code = 8081) (NOTE) SKI PATROLLER: (test code = 8101) Rosie Cruz LOCATION: (test code = 81824) (NOTE) CPT: (test code = 8140) (NOTE) Stuart Mccullough AustinHPV HIGH RISK WITH GENOTYPE, [id number] 00:00:00* Test Item Value Reference Range Interpretation Comme nts HPV HIGH RISK INTERP (test c ode = 92052) NEGATIVE HPV 16 (test code = 12720) NEGATIVE HPV 18 (test code = 96486) NEGATIVE HPV, HR, OTHER GENOTYPES (te st code = 91974) NEGATIVE Stuart F AustinGC AND CHLAMYDIA AMPLIFIED, [id number] 00:00:00* Test Item Value Reference Range Interpretation Comme nts CHLAMYDIA, NAAT, THINPREP (t est code = 87848) NEGATIVE GONORRHEA, NAAT, THINPREP (t est code = 39767) NEGATIVE Stuart F AustinPAP TEST, THINPREP, [id number] 00:00:00* Test Item Value Reference Range Interpretation Comme nts SOURCE: (test code = 8001) Cervical/Endocervical SLIDES: (test code = 8011) 1 LMP: (test code = 8021) NOT GIVEN SPECIMEN ADEQUACY: (test code = 16267) (NOTE) INTERPRETATION: (test code = 78722) NILM/NO EPITH. ABNORMALITY;SEE BELOW OTHER COMMENTS: (test code = 8081) (NOTE) SKI PATROLLER: (test code = 8101) Rosie Cruz LOCATION: (test code = 21269) (NOTE) CPT: (test code = 8140) (NOTE) Stuart F AustinHPV HIGH RISK WITH GENOTYPE, [id number] 00:00:00* Test Item Value Reference Range Interpretation Comme nts HPV HIGH RISK INTERP (test c ode = 80956) NEGATIVE HPV 16 (test code = 56732) NEGATIVE HPV 18 (test code = 80251) NEGATIVE HPV, HR, OTHER GENOTYPES (te st code = 13205) NEGATIVE Stuart F AustinGC AND CHLAMYDIA AMPLIFIED, [id number] 00:00:00* Test Item Value Reference Range Interpretation Comme nts CHLAMYDIA, NAAT, THINPREP (t est code = 15184) NEGATIVE GONORRHEA, NAAT, THINPREP (t est code = 97929) NEGATIVE Stuart GutierrezPAP TEST, THINPREP, [id number] 00:00:00* Test Item Value Reference Range Interpretation Comme nts SOURCE: (test code = 8001) Cervical/Endocervical SLIDES: (test code = 8011) 1 LMP: (test code = 8021) NOT GIVEN SPECIMEN ADEQUACY: (test code = 10510) (NOTE) INTERPRETATION: (test code = 87281) NILM/NO EPITH. ABNORMALITY;SEE BELOW OTHER COMMENTS: (test code = 8081) (NOTE) SKI PATROLLER: (test code = 8101) [facility] LOCATION: (test code = 06408) (NOTE) CPT: (test code = 8140) (NOTE) Stuart Mccullough AustinHPV HIGH RISK WITH GENOTYPE, [id number] 00:00:00* Test Item Value Reference Range Interpretation Comme nts HPV HIGH RISK INTERP (test c ode = 02694) NEGATIVE HPV 16 (test code = 12960) NEGATIVE HPV 18 (test code = 51213) NEGATIVE HPV, HR, OTHER GENOTYPES (te st code = 75344) NEGATIVE Stuart Mccullough AustinGC AND CHLAMYDIA AMPLIFIED, [id number] 00:00:00* Test Item Value Reference Range Interpretation Comme nts CHLAMYDIA, NAAT, THINPREP (t est code = 65777) NEGATIVE GONORRHEA, NAAT, THINPREP (t est code = 55499) NEGATIVE Stuart GutierrezPAP TEST, THINPREP, [id number] 00:00:00* Test Item Value Reference Range Interpretation Comme nts SOURCE: (test code = 8001) Cervical/Endocervical SLIDES: (test code = 8011) 1 LMP: (test code = 8021) NOT GIVEN SPECIMEN ADEQUACY: (test code = 17900) (NOTE) INTERPRETATION: (test code = 10137) NILM/NO EPITH. ABNORMALITY;SEE BELOW OTHER COMMENTS: (test code = 8081) (NOTE) SKI PATROLLER: (test code = 8101) [facility] LOCATION: (test code = 42967) (NOTE) CPT: (test code = 8140) (NOTE) Stuart Mccullough AustinHPV HIGH RISK WITH GENOTYPE, [id number] 00:00:00* Test Item Value Reference Range Interpretation Comme nts HPV HIGH RISK INTERP (test c ode = 22073) NEGATIVE HPV 16 (test code = 75589) NEGATIVE HPV 18 (test code = 30305) NEGATIVE HPV, HR, OTHER GENOTYPES (te st code = 14877) NEGATIVE Stuart Mccullough AustinTSH + FREE T4 [id number] 00:00:00* Test Item Value Reference Range Interpretation Comme nts TSH, THIRD GENERATION (test code = 2821) 1.380 UIU/ML FREE T4 (THYROXINE) (test co de = 2823) 1.18 NG/DL Stuart Mccullough AustinTSH + FREE T4 [id number] 00:00:00* Test Item Value Reference Range Interpretation Comme nts TSH, THIRD GENERATION (test code = 2821) 1.380 UIU/ML FREE T4 (THYROXINE) (test co de = 2823) 1.18 NG/DL Stuart Mccullough AustinTSH + FREE T4 [id number] 00:00:00* Test Item Value Reference Range Interpretation Comme nts TSH, THIRD GENERATION (test code = 2821) 1.380 UIU/ML FREE T4 (THYROXINE) (test co de = 2823) 1.18 NG/DL Stuart Mccullough AustinTSH + FREE T4 [id number] 00:00:00* Test Item Value Reference Range Interpretation Comme nts TSH, THIRD GENERATION (test code = 2821) 1.380 UIU/ML FREE T4 (THYROXINE) (test co de = 2823) 1.18 NG/DL Stuart Mccullough AustinTSH + FREE T4 [id number] 00:00:00* Test Item Value Reference Range Interpretation Comme nts TSH, THIRD GENERATION (test code = 2821) 1.380 UIU/ML FREE T4 (THYROXINE) (test co de = 2823) 1.18 NG/DL Stuart Mccullough AustinTSH + FREE T4 [id number] 00:00:00* Test Item Value Reference Range Interpretation Comme nts TSH, THIRD GENERATION (test code = 2821) 1.380 UIU/ML FREE T4 (THYROXINE) (test co de = 2823) 1.18 NG/DL Stuart GutierrezTSH + FREE T4 [id number] 00:00:00* Test Item Value Reference Range Interpretation Comme nts TSH, THIRD GENERATION (test code = 2821) 1.380 UIU/ML FREE T4 (THYROXINE) (test co de = 2823) 1.18 NG/DL Stuart GutierrezTSH + FREE T4 [id number] 00:00:00* Test Item Value Reference Range Interpretation Comme nts TSH, THIRD GENERATION (test code = 2821) 1.380 UIU/ML FREE T4 (THYROXINE) (test co de = 2823) 1.18 NG/DL Stuart Mccullough AustinTSH + FREE T4 [id number] 00:00:00* Test Item Value Reference Range Interpretation Comme nts TSH, THIRD GENERATION (test code = 2821) 1.380 UIU/ML FREE T4 (THYROXINE) (test co de = 2823) 1.18 NG/DL Stuart GutierrezTSH + FREE T4 [id number] 00:00:00* Test Item Value Reference Range Interpretation Comme nts TSH, THIRD GENERATION (test code = 2821) 1.380 UIU/ML FREE T4 (THYROXINE) (test co de = 2823) 1.18 NG/DL Stuart GutierrezTROPONIN [id number] 01:28:19* Test Item Value Reference Range Interpretation Comme nts TROPONIN I (test code = 2793548932) 0.000 ng/mL <=0.034 CYRUS (test code = [...] of biotin. Lab Interpretation (test code = 49511-2) [facility] [id number] 01:25:38* Test Item Value Reference Range Interpretation Comme nts NT-proBNP (test code = 59409-8) 29 pg/mL <=125 Lab Interpretation (test cod e = 95125-3) [facility]COMP[facility] METABOLIC PANEL (06427)2023-04-07 01:17:57* Test Item Value Reference Range Interpretation Comme nts NA (test code = 1487995725) 139 mmol/L 135-145 K (test code = 3302420542) 3.5 mmol/L 3.5-5.0 CL (test code = 8875369652) 107 mmol/L 98-108 CO2 TOTAL (test code = 6079252459) 21 mmol/L 23-31 L AGAP (test code = 7785723823) 11 2-16 BUN (test code = 4631096060) 11 mg/dL 7-23 GLUCOSE (test code = 5164996009) 77 mg/dL 70-110 CREATININE (test code = 1951384646) 0.86 mg/dL 0.50-1.04 TOTAL BILI (test code = 4868996465) 0.5 mg/dL 0.1-1.1 CALCIUM (test code = 3228511391) 9.9 mg/dL 8.6-10.6 T PROTEIN (test code = 7845552498) 7.9 g/dL 6.3-8.2 ALBUMIN (test code = 3731641103) 4.6 g/dL 3.5-5.0 ALK PHOS (test code = 2558884391) 95 U/L 34-122 ALTv (test code = 1742-6) 21 U/L 5-35 AST(SGOT) (test code = 0303493877) 23 U/L 13-40 eGFR (test code = 72494-6) 81.4 mL/min/1.73m2 CKD-EPI eGFR (2020). Assuming creatinine has been stable day-to-day for at least three months, the eGFR indicates Category G2 (60 - 89 mL/min/1.73 m2) Lab Interpretation (test code = 25951-7) [facility]normal [facility] NorthwestACTIV[facility] PARTIAL THRMPLAS [id number] 01:12:01* Test Item Value Reference Range Interpretation Comme nts APTT Patient (test code = 3173-2) 32 26-36 CYRUS (test code = CYRUS) The [facility] patient population mean normal value for aPTT is 30 seconds. Lab Interpretation (test code = 87061-2) [facility] NorthwestPROTHROMBIN TIME / [id number] 01:12:01* Test Item Value Reference Range Interpretation Comme nts PROTIME PATIENT (test code = 5964-2) 10.8 10.1-12.6 INR (test code = 6301-6) 0.9 Normal INR <1.1; Warfarin Therapeutic range 2.0 to 3.0 or 2.5 to 3.5, depending upon the indications. Lab Interpretation (test code = 90998-5) [facility] NorthwestCBC WITH [id number] 01:06:19* Test Item Value Reference Range Interpretation Comme nts WBC (test code = 6690-2) 6.83 4.30-11.10 RBC (test code = 789-8) 4.36 3.93-5.25 HGB (test code = 718-7) 12.7 g/dL 11.6-15.0 HCT (test code = 4544-3) 37.3 % 35.7-45.2 MCV (test code = 787-2) 85.6 fL 80.6-95.5 MCH (test code = 785-6) 29.1 pg 25.9-32.8 MCHC (test code = 786-4) 34.0 g/dL 31.6-35.1 RDW-SD (test code = 13838-4) 41.5 fL 39.0-49.9 RDW-CV (test code = 788-0) 13.4 % 12.0-15.5 PLT (test code = 777-3) 324 166-358 MPV (test code = 91120-1) 10.3 fL 9.5-12.9 NRBC/100 WBC (test code = 6790239939) 0.0 0.0-10.0 NRBC x10^3 (test code = 1762460675) See_Comment [Automated me ssage] The system which generated this result transmitted reference range: 10*3/?L. The reference range was not used to interpret this result as normal/abnormal. GRAN MAT (NEUT) % (test code = 770-8) 63.5 % IMM GRAN % (test code = 4483174968) 0.60 % LYMPH % (test code = 736-9) 23.3 % MONO % (test code = 5905-5) 9.1 % EOS % (test code = 713-8) 3.1 % BASO % (test code = 706-2) 0.4 % GRAN MAT x10^3(ANC) (test code = 2171428904) 4.34 10*3/uL 1.88-7.09 IMM GRAN x10^3 (test code = 0279559908) 0.04 10*3/uL 0.00-0.06 LYMPH x10^3 (test code = 731-0) 1.59 10*3/uL 1.32-3.29 MONO x10^3 (test code = 742-7) 0.62 10*3/uL 0.33-0.92 EOS x10^3 (test code = 711-2) 0.21 10*3/uL 0.03-0.39 BASO x10^3 (test code = 704-7) 0.03 10*3/uL 0.01-0.07 [facility] 2 [id number] 00:39:47Chest two views CLINICAL INDICATION: ?dizziness PHYSICIAN NAME: CHANELLE ORTIZ Technique: ? PA and Lateral views of the chest. ? COMPARISON: ?Chest x-ray dated 11/30/2020 FINDINGS: There is no pleural effusion, pneumothorax, or confluentinfiltrate. Mild subsegmental atelectasis at the lung bases.The cardiacsilhouette is within normal limits. There is no failure pattern. [facility]TS, THIRD [id number] 00:00:00* Test Item Value Reference Range Interpretation Comme nts TSH, THIRD GENERATION (test code = 2821) 1.130 UIU/ML Stuart Mccullough AustinTHYROID I PROFILE (TU,T4,FTI) [ADDED]2022-11-13 00:00:00* Test Item Value Reference Range Interpretation Comme nts T-UPTAKE (test code = 2817) 30.2 % THYROX. BIND. CAPAC. (test c ode = 76658) 1.1 T4 (THYROXINE) (test code = 2819) 6.7 UG/DL CORRECTED T4 (FTI) (test cod e = 2820) 6.1 UG/DL Stuart GutierrezPROLACTIN [ADDED]2022-11-13 00:00:00* Test Item Value Reference Range Interpretation Comme azra PROLACTIN (test code = 2800) 21.7 NG/ML Stuart GutierrezCOMPREHENSIVE METABOLIC [id number] 00:00:00* Test Item Value Reference Range Interpretation Comme nts GLUCOSE (test code = 2217) 107 MG/DL BUN (test code = 2208) 11 MG/DL CREATININE (test code = 2214) 0.77 MG/DL eGFR (2020 CKD-EPI) (test co de = 66780) 93 ML/MIN/1.73 CALC BUN/CREAT (test code = [...] code = 2219) 22 U/L Stuart GutierrezHEMOGLOBIN [id number] 00:00:00* Test Item Value Reference Range Interpretation Comme azra HEMOGLOBIN A1c (test code = 83437) 5.6 % Stuart GutierrezALBUMIN/CREATININE RATIO, RANDOM [id number] 00:00:00* Test Item Value Reference Range Interpretation Comme azra CREATININE, URINE, CONC. (te st code = 2072) 113.8 MG/DL ALBUMIN, URINE, RANDOM (test code = 44597) 0.5 MG/DL CALC ALBUMIN/CREAT, RND (vinay t code = 03078) 4 MG/G Stuart GutierrezLIPID [id number] 00:00:00* Test Item Value Reference Range Interpretation Comme nts CHOLESTEROL (test code = 2210) 179 MG/DL TRIGLYCERIDES (test code = 2232) 67 MG/DL HDL CHOLESTEROL (test code = 2220) 74 MG/DL CALC LDL CHOL (test code = 2237) 90 MG/DL RISK RATIO LDL/HDL (test cod e = 2238) 1.22 RATIO Stuart JonesH, THIRD [id number] 00:00:00* Test Item Value Reference Range Interpretation Comme nts TSH, THIRD GENERATION (test code = 2821) 1.130 UIU/ML Stuart GutierrezTHYROID I PROFILE (TU,T4,FTI) [ADDED]2022-11-13 00:00:00* Test Item Value Reference Range Interpretation Comme nts T-UPTAKE (test code = 2817) 30.2 % THYROX. BIND. CAPAC. (test c ode = 02018) 1.1 T4 (THYROXINE) (test code = 2819) 6.7 UG/DL CORRECTED T4 (FTI) (test cod e = 2820) 6.1 UG/DL Stuart GutierrezPROLACTIN [ADDED]2022-11-13 00:00:00* Test Item Value Reference Range Interpretation Comme nts PROLACTIN (test code = 2800) 21.7 NG/ML Stuart GutierrezCOMPREHENSIVE METABOLIC [id number] 00:00:00* Test Item Value Reference Range Interpretation Comme nts GLUCOSE (test code = 2217) 107 MG/DL BUN (test code = 2208) 11 MG/DL CREATININE (test code = 2214) 0.77 MG/DL eGFR (2020 CKD-EPI) (test co de = 69614) 93 ML/MIN/1.73 CALC BUN/CREAT (test code = [...] code = 2219) 22 U/L Stuart GutierrezHEMOGLOBIN [id number] 00:00:00* Test Item Value Reference Range Interpretation Comme azra HEMOGLOBIN A1c (test code = 73897) 5.6 % Stuart GutierrezALBUMIN/CREATININE RATIO, RANDOM [id number] 00:00:00* Test Item Value Reference Range Interpretation Comme nts CREATININE, URINE, CONC. (te st code = 2072) 113.8 MG/DL ALBUMIN, URINE, RANDOM (test code = 86708) 0.5 MG/DL CALC ALBUMIN/CREAT, RND (vinay t code = 27645) 4 MG/G Stuart GutierrezLIPID [id number] 00:00:00* Test Item Value Reference Range Interpretation Comme nts CHOLESTEROL (test code = 2210) 179 MG/DL TRIGLYCERIDES (test code = 2232) 67 MG/DL HDL CHOLESTEROL (test code = 2220) 74 MG/DL CALC LDL CHOL (test code = 2237) 90 MG/DL RISK RATIO LDL/HDL (test cod e = 2238) 1.22 RATIO Stuart GutierrezTSH, THIRD [id number] 00:00:00* Test Item Value Reference Range Interpretation Comme nts TSH, THIRD GENERATION (test code = 2821) 1.130 UIU/ML Stuart GutierrezTHYROID I PROFILE (TU,T4,FTI) [ADDED]2022-11-13 00:00:00* Test Item Value Reference Range Interpretation Comme nts T-UPTAKE (test code = 2817) 30.2 % THYROX. BIND. CAPAC. (test c ode = 12462) 1.1 T4 (THYROXINE) (test code = 2819) 6.7 UG/DL CORRECTED T4 (FTI) (test cod e = 2820) 6.1 UG/DL Stuart GutierrezPROLACTIN [ADDED]2022-11-13 00:00:00* Test Item Value Reference Range Interpretation Comme nts PROLACTIN (test code = 2800) 21.7 NG/ML Stuart GutierrezCOMPREHENSIVE METABOLIC [id number] 00:00:00* Test Item Value Reference Range Interpretation Comme nts GLUCOSE (test code = 2217) 107 MG/DL BUN (test code = 2208) 11 MG/DL CREATININE (test code = 2214) 0.77 MG/DL eGFR (2020 CKD-EPI) (test co de = 05827) 93 ML/MIN/1.73 CALC BUN/CREAT (test code = [...] code = 2219) 22 U/L Stuart GutierrezHEMOGLOBIN [id number] 00:00:00* Test Item Value Reference Range Interpretation Comme [facility] HEMOGLOBIN A1c (test code = 86627) 5.6 % Stuart GutierrezALBUMIN/CREATININE RATIO, RANDOM [id number] 00:00:00* Test Item Value Reference Range Interpretation Comme [facility] CREATININE, URINE, CONC. (te st code = 2072) 113.8 MG/DL ALBUMIN, URINE, RANDOM (test code = 18415) 0.5 MG/DL CALC ALBUMIN/CREAT, RND (vinay t code = 59739) 4 MG/G Stuart GutierrezLIPID [id number] 00:00:00* Test Item Value Reference Range Interpretation Comme nts CHOLESTEROL (test code = 2210) 179 MG/DL TRIGLYCERIDES (test code = 2232) 67 MG/DL HDL CHOLESTEROL (test code = 2220) 74 MG/DL CALC LDL CHOL (test code = 2237) 90 MG/DL RISK RATIO LDL/HDL (test cod e = 2238) 1.22 RATIO Stuart GutierrezTSH, THIRD [id number] 00:00:00* Test Item Value Reference Range Interpretation Comme nts TSH, THIRD GENERATION (test code = 2821) 1.130 UIU/ML Stuart GutierrezTHYROID I PROFILE (TU,T4,FTI) [ADDED]2022-11-13 00:00:00* Test Item Value Reference Range Interpretation Comme nts T-UPTAKE (test code = 2817) 30.2 % THYROX. BIND. CAPAC. (test c ode = 36212) 1.1 T4 (THYROXINE) (test code = 2819) 6.7 UG/DL CORRECTED T4 (FTI) (test cod e = 2820) 6.1 UG/DL Stuart GutierrezPROLACTIN [ADDED]2022-11-13 00:00:00* Test Item Value Reference Range Interpretation Comme nts PROLACTIN (test code = 2800) 21.7 NG/ML Stuart GutierrezCOMPREHENSIVE METABOLIC [id number] 00:00:00* Test Item Value Reference Range Interpretation Comme nts GLUCOSE (test code = 2217) 107 MG/DL BUN (test code = 2208) 11 MG/DL CREATININE (test code = 2214) 0.77 MG/DL eGFR (2020 CKD-EPI) (test co de = 35897) 93 ML/MIN/1.73 CALC BUN/CREAT (test code = [...] code = 2219) 22 U/L Stuart GutierrezHEMOGLOBIN [id number] 00:00:00* Test Item Value Reference Range Interpretation Comme [facility] HEMOGLOBIN A1c (test code = 62069) 5.6 % Stuart GutierrezALBUMIN/CREATININE RATIO, RANDOM [id number] 00:00:00* Test Item Value Reference Range Interpretation Comme [facility] CREATININE, URINE, CONC. (te st code = 2072) 113.8 MG/DL ALBUMIN, URINE, RANDOM (test code = 18032) 0.5 MG/DL CALC ALBUMIN/CREAT, RND (vinay t code = 53556) 4 MG/G Stuart GutierrezLIPID [id number] 00:00:00* Test Item Value Reference Range Interpretation Comme nts CHOLESTEROL (test code = 2210) 179 MG/DL TRIGLYCERIDES (test code = 2232) 67 MG/DL HDL CHOLESTEROL (test code = 2220) 74 MG/DL CALC LDL CHOL (test code = 2237) 90 MG/DL RISK RATIO LDL/HDL (test cod e = 2238) 1.22 RATIO Stuart GutierrezTSH, THIRD [id number] 00:00:00* Test Item Value Reference Range Interpretation Comme [facility] TSH, THIRD GENERATION (test code = 2821) 1.130 UIU/ML Stuart GutierrezTHYROID I PROFILE (TU,T4,FTI) [ADDED]2022-11-13 00:00:00* Test Item Value Reference Range Interpretation Comme nts T-UPTAKE (test code = 2817) 30.2 % THYROX. BIND. CAPAC. (test c ode = 53602) 1.1 T4 (THYROXINE) (test code = 2819) 6.7 UG/DL CORRECTED T4 (FTI) (test cod e = 2820) 6.1 UG/DL Stuart GutierrezPROLACTIN [ADDED]2022-11-13 00:00:00* Test Item Value Reference Range Interpretation Comme nts PROLACTIN (test code = 2800) 21.7 NG/ML Stuart GutierrezCOMPREHENSIVE METABOLIC [id number] 00:00:00* Test Item Value Reference Range Interpretation Comme nts GLUCOSE (test code = 2217) 107 MG/DL BUN (test code = 2208) 11 MG/DL CREATININE (test code = 2214) 0.77 MG/DL eGFR (2020 CKD-EPI) (test co de = 48920) 93 ML/MIN/1.73 CALC BUN/CREAT (test code = [...] code = 2219) 22 U/L Stuart GutierrezHEMOGLOBIN [id number] 00:00:00* Test Item Value Reference Range Interpretation Comme [facility] HEMOGLOBIN A1c (test code = 89144) 5.6 % Stuart GutierrezALBUMIN/CREATININE RATIO, RANDOM [id number] 00:00:00* Test Item Value Reference Range Interpretation Comme [facility] CREATININE, URINE, CONC. (te st code = 2072) 113.8 MG/DL ALBUMIN, URINE, RANDOM (test code = 12735) 0.5 MG/DL CALC ALBUMIN/CREAT, RND (vinay t code = 61037) 4 MG/G Stuart GutierrezLIPID [id number] 00:00:00* Test Item Value Reference Range Interpretation Comme nts CHOLESTEROL (test code = 2210) 179 MG/DL TRIGLYCERIDES (test code = 2232) 67 MG/DL HDL CHOLESTEROL (test code = 2220) 74 MG/DL CALC LDL CHOL (test code = 2237) 90 MG/DL RISK RATIO LDL/HDL (test cod e = 2238) 1.22 RATIO Stuart GutierrezTSH, THIRD [id number] 00:00:00* Test Item Value Reference Range Interpretation Comme nts TSH, THIRD GENERATION (test code = 2821) 1.130 UIU/ML Stuart F AustinTHYROID I PROFILE (TU,T4,FTI) [ADDED]2022-11-13 00:00:00* Test Item Value Reference Range Interpretation Comme nts T-UPTAKE (test code = 2817) 30.2 % THYROX. BIND. CAPAC. (test c ode = 56339) 1.1 T4 (THYROXINE) (test code = 2819) 6.7 UG/DL CORRECTED T4 (FTI) (test cod e = 2820) 6.1 UG/DL Stuart GutierrezPROLACTIN [ADDED]2022-11-13 00:00:00* Test Item Value Reference Range Interpretation Comme nts PROLACTIN (test code = 2800) 21.7 NG/ML Stuart GutierrezCOMPREHENSIVE METABOLIC [id number] 00:00:00* Test Item Value Reference Range Interpretation Comme nts GLUCOSE (test code = 2217) 107 MG/DL BUN (test code = 2208) 11 MG/DL CREATININE (test code = 2214) 0.77 MG/DL eGFR (2020 CKD-EPI) (test co de = 17798) 93 ML/MIN/1.73 CALC BUN/CREAT (test code = [...] code = 2219) 22 U/L Stuart GutierrezHEMOGLOBIN [id number] 00:00:00* Test Item Value Reference Range Interpretation Comme nts HEMOGLOBIN A1c (test code = 34832) 5.6 % Stuart Mccullough MattALBUMIN/CREATININE RATIO, RANDOM [id number] 00:00:00* Test Item Value Reference Range Interpretation Comme nts CREATININE, URINE, CONC. (te st code = 2072) 113.8 MG/DL ALBUMIN, URINE, RANDOM (test code = 44414) 0.5 MG/DL CALC ALBUMIN/CREAT, RND (vinay t code = 38256) 4 MG/G Stuart GutierrezLIPID [id number] 00:00:00* Test Item Value Reference Range Interpretation Comme nts CHOLESTEROL (test code = 2210) 179 MG/DL TRIGLYCERIDES (test code = 2232) 67 MG/DL HDL CHOLESTEROL (test code = 2220) 74 MG/DL CALC LDL CHOL (test code = 2237) 90 MG/DL RISK RATIO LDL/HDL (test cod e = 2238) 1.22 RATIO Stuart GutierrezTSH, THIRD [id number] 00:00:00* Test Item Value Reference Range Interpretation Comme nts TSH, THIRD GENERATION (test code = 2821) 1.130 UIU/ML Stuart GutierrezTHYROID I PROFILE (TU,T4,FTI) [ADDED]2022-11-13 00:00:00* Test Item Value Reference Range Interpretation Comme nts T-UPTAKE (test code = 2817) 30.2 % THYROX. BIND. CAPAC. (test c ode = 42541) 1.1 T4 (THYROXINE) (test code = 2819) 6.7 UG/DL CORRECTED T4 (FTI) (test cod e = 2820) 6.1 UG/DL Stuart GutierrezPROLACTIN [ADDED]2022-11-13 00:00:00* Test Item Value Reference Range Interpretation Comme nts PROLACTIN (test code = 2800) 21.7 NG/ML Stuart GutierrezCOMPREHENSIVE METABOLIC [id number] 00:00:00* Test Item Value Reference Range Interpretation Comme nts GLUCOSE (test code = 2217) 107 MG/DL BUN (test code = 2208) 11 MG/DL CREATININE (test code = 2214) 0.77 MG/DL eGFR (2020 CKD-EPI) (test co de = 63631) 93 ML/MIN/1.73 CALC BUN/CREAT (test code = [...] code = 2219) 22 U/L Stuart GutierrezHEMOGLOBIN [id number] 00:00:00* Test Item Value Reference Range Interpretation Comme [facility] HEMOGLOBIN A1c (test code = 39051) 5.6 % Stuart GutierrezALBUMIN/CREATININE RATIO, RANDOM [id number] 00:00:00* Test Item Value Reference Range Interpretation Comme [facility] CREATININE, URINE, CONC. (te st code = 2072) 113.8 MG/DL ALBUMIN, URINE, RANDOM (test code = 20338) 0.5 MG/DL CALC ALBUMIN/CREAT, RND (vinay t code = 62590) 4 MG/G Stuart GutierrezLIPID [id number] 00:00:00* Test Item Value Reference Range Interpretation Comme nts CHOLESTEROL (test code = 2210) 179 MG/DL TRIGLYCERIDES (test code = 2232) 67 MG/DL HDL CHOLESTEROL (test code = 2220) 74 MG/DL CALC LDL CHOL (test code = 2237) 90 MG/DL RISK RATIO LDL/HDL (test cod e = 2238) 1.22 RATIO Stuart GutierrezTSH, THIRD [id number] 00:00:00* Test Item Value Reference Range Interpretation Comme nts TSH, THIRD GENERATION (test code = 2821) 1.130 UIU/ML Stuart GutierrezTHYROID I PROFILE (TU,T4,FTI) [ADDED]2022-11-13 00:00:00* Test Item Value Reference Range Interpretation Comme nts T-UPTAKE (test code = 2817) 30.2 % THYROX. BIND. CAPAC. (test c ode = 63439) 1.1 T4 (THYROXINE) (test code = 2819) 6.7 UG/DL CORRECTED T4 (FTI) (test cod e = 2820) 6.1 UG/DL Stuart GutierrezPROLACTIN [ADDED]2022-11-13 00:00:00* Test Item Value Reference Range Interpretation Comme [facility] PROLACTIN (test code = 2800) 21.7 NG/ML Stuart GutierrezCOMPREHENSIVE METABOLIC [id number] 00:00:00* Test Item Value Reference Range Interpretation Comme nts GLUCOSE (test code = 2217) 107 MG/DL BUN (test code = 2208) 11 MG/DL CREATININE (test code = 2214) 0.77 MG/DL eGFR (2020 CKD-EPI) (test co de = 04662) 93 ML/MIN/1.73 CALC BUN/CREAT (test code = [...] code = 2219) 22 U/L Stuart GutierrezHEMOGLOBIN [id number] 00:00:00* Test Item Value Reference Range Interpretation Comme [facility] HEMOGLOBIN A1c (test code = 58894) 5.6 % Stuart GutierrezALBUMIN/CREATININE RATIO, RANDOM [id number] 00:00:00* Test Item Value Reference Range Interpretation Comme [facility] CREATININE, URINE, CONC. (te st code = 2072) 113.8 MG/DL ALBUMIN, URINE, RANDOM (test code = 45135) 0.5 MG/DL CALC ALBUMIN/CREAT, RND (vinay t code = 27165) 4 MG/G Stuart GutierrezLIPID [id number] 00:00:00* Test Item Value Reference Range Interpretation Comme nts CHOLESTEROL (test code = 2210) 179 MG/DL TRIGLYCERIDES (test code = 2232) 67 MG/DL HDL CHOLESTEROL (test code = 2220) 74 MG/DL CALC LDL CHOL (test code = 2237) 90 MG/DL RISK RATIO LDL/HDL (test cod e = 2238) 1.22 RATIO Stuart GutierrezTSH, THIRD [id number] 00:00:00* Test Item Value Reference Range Interpretation Comme [facility] TSH, THIRD GENERATION (test code = 2821) 1.130 UIU/ML Stuart GutierrezTHYROID I PROFILE (TU,T4,FTI) [ADDED]2022-11-13 00:00:00* Test Item Value Reference Range Interpretation Comme [facility] T-UPTAKE (test code = 2817) 30.2 % THYROX. BIND. CAPAC. (test c ode = 07027) 1.1 T4 (THYROXINE) (test code = 2819) 6.7 UG/DL CORRECTED T4 (FTI) (test cod e = 2820) 6.1 UG/DL Stuart GutierrezPROLACTIN [ADDED]2022-11-13 00:00:00* Test Item Value Reference Range Interpretation Comme [facility] PROLACTIN (test code = 2800) 21.7 NG/ML Stuart GutierrezCOMPREHENSIVE METABOLIC [id number] 00:00:00* Test Item Value Reference Range Interpretation Comme nts GLUCOSE (test code = 2217) 107 MG/DL BUN (test code = 2208) 11 MG/DL CREATININE (test code = 2214) 0.77 MG/DL eGFR (2020 CKD-EPI) (test co de = 02992) 93 ML/MIN/1.73 CALC BUN/CREAT (test code = [...] code = 2219) 22 U/L Stuart GutierrezHEMOGLOBIN [id number] 00:00:00* Test Item Value Reference Range Interpretation Comme [facility] HEMOGLOBIN A1c (test code = 80443) 5.6 % Stuart GutierrezALBUMIN/CREATININE RATIO, RANDOM [id number] 00:00:00* Test Item Value Reference Range Interpretation Comme nts CREATININE, URINE, CONC. (te st code = 2072) 113.8 MG/DL ALBUMIN, URINE, RANDOM (test code = 45940) 0.5 MG/DL CALC ALBUMIN/CREAT, RND (vinay t code = 64120) 4 MG/G Stuart GutierrezLIPID [id number] 00:00:00* Test Item Value Reference Range Interpretation Comme nts CHOLESTEROL (test code = 2210) 179 MG/DL TRIGLYCERIDES (test code = 2232) 67 MG/DL HDL CHOLESTEROL (test code = 2220) 74 MG/DL CALC LDL CHOL (test code = 2237) 90 MG/DL RISK RATIO LDL/HDL (test cod e = 2238) 1.22 RATIO Stuart GutierrezTSH, THIRD [id number] 00:00:00* Test Item Value Reference Range Interpretation Comme [facility] TSH, THIRD GENERATION (test code = 2821) 1.130 UIU/ML Stuart GutierrezTHYROID I PROFILE (TU,T4,FTI) [ADDED]2022-11-13 00:00:00* Test Item Value Reference Range Interpretation Comme nts T-UPTAKE (test code = 2817) 30.2 % THYROX. BIND. CAPAC. (test c ode = 02952) 1.1 T4 (THYROXINE) (test code = 2819) 6.7 UG/DL CORRECTED T4 (FTI) (test cod e = 2820) 6.1 UG/DL Stuart GutierrezPROLACTIN [ADDED]2022-11-13 00:00:00* Test Item Value Reference Range Interpretation Comme [facility] PROLACTIN (test code = 2800) 21.7 NG/ML Stuart GutierrezCOMPREHENSIVE METABOLIC [id number] 00:00:00* Test Item Value Reference Range Interpretation Comme nts GLUCOSE (test code = 2217) 107 MG/DL BUN (test code = 2208) 11 MG/DL CREATININE (test code = 2214) 0.77 MG/DL eGFR (2020 CKD-EPI) (test co de = 52048) 93 ML/MIN/1.73 CALC BUN/CREAT (test code = [...] code = 2219) 22 U/L Stuart GutierrezHEMOGLOBIN [id number] 00:00:00* Test Item Value Reference Range Interpretation Comme [facility] HEMOGLOBIN A1c (test code = 33657) 5.6 % Stuart GutierrezALBUMIN/CREATININE RATIO, RANDOM [id number] 00:00:00* Test Item Value Reference Range Interpretation Comme [facility] CREATININE, URINE, CONC. (te st code = 2072) 113.8 MG/DL ALBUMIN, URINE, RANDOM (test code = 48066) 0.5 MG/DL CALC ALBUMIN/CREAT, RND (vinay t code = 47661) 4 MG/G Stuart GutierrezLIPID [id number] 00:00:00* Test Item Value Reference Range Interpretation Comme nts CHOLESTEROL (test code = 2210) 179 MG/DL TRIGLYCERIDES (test code = 2232) 67 MG/DL HDL CHOLESTEROL (test code = 2220) 74 MG/DL CALC LDL CHOL (test code = 2237) 90 MG/DL RISK RATIO LDL/HDL (test cod e = 2238) 1.22 RATIO Stuart Diop, [id number] 00:00:00* Test Item Value Reference Range Interpretation Comme nts CULTURE, URINE (test code = 10660) SPECIMEN NUMBER: [id number] Stuart Diop [id number] 00:00:00* Test Item Value Reference Range Interpretation Comme nts CULTURE, URINE (test code = 24311) SPECIMEN NUMBER: [id number] Stuart Diop [id number] 00:00:00* Test Item Value Reference Range Interpretation Comme nts CULTURE, URINE (test code = 39755) SPECIMEN NUMBER: [id number] Stuart Diop [id number] 00:00:00* Test Item Value Reference Range Interpretation Comme nts CULTURE, URINE (test code = 83348) SPECIMEN NUMBER: [id number] Stuart Diop [id number] 00:00:00* Test Item Value Reference Range Interpretation Comme nts CULTURE, URINE (test code = 39373) SPECIMEN NUMBER: [id number] Stuart Diop [id number] 00:00:00* Test Item Value Reference Range Interpretation Comme nts CULTURE, URINE (test code = 51444) SPECIMEN NUMBER: [id number] Stuart Diop [id number] 00:00:00* Test Item Value Reference Range Interpretation Comme nts CULTURE, URINE (test code = 16934) SPECIMEN NUMBER: [id number] Stuart Diop, [id number] 00:00:00* Test Item Value Reference Range Interpretation Comme nts CULTURE, URINE (test code = 49063) SPECIMEN NUMBER: [id number] Stuart Diop, [id number] 00:00:00* Test Item Value Reference Range Interpretation Comme nts CULTURE, URINE (test code = 22048) SPECIMEN NUMBER: [id number] Stuart Diop, [id number] 00:00:00* Test Item Value Reference Range Interpretation Comme nts CULTURE, URINE (test code = 10180) SPECIMEN NUMBER: [id number] Stuart Zhang. METABOLIC PANEL (70728)2022-01-05 02:27:07* Test Item Value Reference Range Interpretation Comme nts NA (test code = 0483298662) 141 mmol/L 135-145 K (test code = 2908077302) 4.1 mmol/L 3.5-5.0 CL (test code = 8236087161) 99 mmol/L 98-108 CO2 TOTAL (test code = 4267032517) 33 mmol/L 23-31 H AGAP (test code = 7681451339) 2-16 BUN (test code = 9689077221) 12 mg/dL 7-23 GLUCOSE (test code = 2646808842) 94 mg/dL 70-110 CREATININE (test code = 9512892841) 0.81 mg/dL 0.50-1.04 TOTAL BILI (test code = 0232260027) 0.4 mg/dL 0.1-1.1 CALCIUM (test code = 4623675214) 10.8 mg/dL 8.6-10.6 H T PROTEIN (test code = 7914591933) 8.4 g/dL 6.3-8.2 H ALBUMIN (test code = 7329953373) 5.2 g/dL 3.5-5.0 H ALK PHOS (test code = 0841222006) 97 U/L 34-122 ALTv (test code = 1742-6) 21 U/L 5-35 AST(SGOT) (test code = 4020520640) 23 U/L 13-40 eGFR (test code = 4918480766) mL/min/1.73m2 CYRUS (test code = CYRUS) Association [...] imaging tests). Lab Interpretation (test code = 40547-3) Abnormal [facility] WITH [id number] 02:13:43* Test Item Value Reference Range Interpretation Comme nts WBC (test code = 6690-2) See_Comment [Moblyng] The system which generated this result transmitted reference range: 4.30 - 11.10 10*3/?L. The reference range was not used to interpret this result as normal/abnormal. RBC (test code = 789-8) See_Comment [Moblyng] The system which generated this result transmitted [...] 33.8 g/dL 31.6-35.1 RDW-SD (test code = 51964-7) 43.5 fL 39.0-49.9 RDW-CV (test code = 788-0) 14.2 % 12.0-15.5 PLT (test code = 777-3) See_Comment H [Automated messa ge] The system which generated this result transmitted reference range: 166 - 358 10*3/?L. The reference range was not used to interpret this result as normal/abnormal. MPV (test code = 96840-1) 10.0 fL 9.5-12.9 NRBC/100 WBC (test code = 5834162319) See_Comment [Automated me ssage] The system which generated this result transmitted reference range: 0.0 - 10.0 /100 WBCs. The reference range was not used to interpret this result as normal/abnormal. NRBC x10^3 (test code = 4309393600) See_Comment [Automated messa ge] The system which generated this result transmitted reference range: 10*3/?L. The reference range was not used to interpret this result as normal/abnormal. GRAN MAT (NEUT) % (test code = 770-8) 70.4 % IMM GRAN % (test code = 8289155322) 0.40 % LYMPH % (test code = 736-9) 21.3 % MONO % (test code = 5905-5) 6.0 % EOS % (test code = 713-8) 1.4 % BASO % (test code = 706-2) 0.5 % GRAN MAT x10^3(ANC) (test code = 2976787122) 7.69 10*3/uL 1.88-7.09 H IMM GRAN x10^3 (test code = 7352451436) 0.04 10*3/uL 0.00-0.06 LYMPH x10^3 (test code = 731-0) 2.32 10*3/uL 1.32-3.29 MONO x10^3 (test code = 742-7) 0.66 10*3/uL 0.33-0.92 EOS x10^3 (test code = 711-2) 0.15 10*3/uL 0.03-0.39 BASO x10^3 (test code = 704-7) 0.05 10*3/uL 0.01-0.07 Lab Interpretation (test code = 03753-2) Abnormal [facility] [id number] 02:00:00* Test Item Value Reference Range Interpretation Comme nts POCT PREG (test code = 1605) negative On board controls acceptable with C Line (test code = 3574) positive POCT PREG LOT # (test code = 3575) [id number] POCT PREG TEST DATE ( test code = 3576) 05/26/2023 Lab Interpretation (test cod e = 64709-2) Normal [facility] Notes Date/Time Note Provider Source [facility]2025-02-24 00:00:00 [facility]2025-02-06 00:00:00 [facility]2025-01-03 00:00:00 [facility]2024-11-18 00:00:00 [place] [id number] 00:00:00 [place] [id number] 00:00:00 [place] [id number] 00:00:00 [facility]2024-09-13 00:00:00 [facility]2024-08-17 00:00:00 [facility]2024-02-10 22:17:44 Pt given printed and verbal discharge [...] w/d, pt leaving in no apparent distress, [place] MAINTENANCE TECHNICIAN [facility]i [facility] 17:45:28 Called pt per request. Got voicemail [place] MAINTENANCE TECHNICIAN [facility]any [id number] 17:27:03 Ambulated by MD Angel - patient with severe dizziness with ambulation. Had to stop in the hallway due to dizziness. [place] MAINTENANCE TECHNICIAN Kasandra Canales [facility]vqwyd6222[facility]45 17:05:16 Patient to ED for dizziness and [...] feels like somebody is squeezing it now. [place] MAINTENANCE TECHNICIAN Tolu Davis [facility]nww[facility]2815[facility]65 17:05:00 Patient's name and verified with patient. [...] of plan of care. Kasandra Canales RN [facility] - [id number] 17:01:00 [facility] Emergency Department Note Patient Name: Alessia Brewster Date of : 1970 52 year old female Treatment Room: NH5/NH5 Primary Care Physician: Ryan Cantu Patient Escorted by: Self [9] Mode of Arrival: EMS - [facility] [43] EMS Treatment Prior to ED Arrival: REVENUE INSPECTOR treatment: Saline lock REVENUE INSPECTOR treatment comments: zofran IVP Exam Limited by: [...] has had some palpitations. 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 Right TOP SPOTTER. The posterior cerebral arteries are unremarkable. A [...] The superior cerebellar arteries are unremarkable. Right TOP SPOTTER. The posterior cerebral arteries are unremarkable. A [...] acute infiltrate or failure pattern. RL: 2701 AF [address] End of report Lab Results (24h): (Reviewed by me) Recent Results (from the past 24 hour(s)) COMP. METABOLIC PANEL (15391) Collection Time: 04/06/23 5:54 PM Result Value [...] CT STROKE ANGIOGRAM NECK COMP. METABOLIC PANEL (15586) CBC WITH DIFF ACTIVATED PARTIAL THRMPLAS SANDRA [...] on the wall in the bathroom at [facility] yesterday and thinks this may be part [...] Report Dictated by Resident: Julius Bond [LS] 1941 N-TERMINAL PRO-BNP within normal limits [LS] 1941 TROPONIN I within normal limits [LS] 192 CBC WITH DIFF unremarkable [LS] 1923 PROTHROMBIN TIME / INR Coags unremarkable [LS] 1923 ACTIVATED PARTIAL THRMPLAS SANDRA [LS] 1923 COMP. METABOLIC PANEL (94974)(!) unremarkable [LS] 192 URINALYSIS(!) unremarkable [LS] 184 XR CHEST 2 VW IMPRESSION 1. No acute infiltrate or failure pattern. [LS] 1820 Pt requesting pain med for headache. Will not give NSAIDs until after CT. Will give tylenol. [LS] ED Course User Index [LS] Chanelle Ortiz MD Diagnosis/Impression as of 04/06/235 Dizziness Pain of right upper extremity Nonintractable [...] MD Specialty: IM-INTERNAL MEDICINE Relationship: PCP - [address] [address] Instructions: As needed MDM: Medical Decision Making [...] Portions of this note were completed using [employer] Speaking Software. Occasional phonetic or grammatical errors may escape proofreading. Electronically signed by: Chanelle Ortiz M.D., [facility] Processing Tech Clinical Professor of Emergency Medicine 04/06/2023 5:14 PM Chanelle Ortiz MD 04/06/232204 [facility]2024-01-08 20:57:44 Pt discharged with diagnosis of sore throat and viral URI. Printed and verbal instructions reviewed with and given to patient. Prescriptions given x 2. Pt verbalized understanding of teaching, medications, and recommended follow-up. Denies questions or concerns at this time. Pt ambulatory at discharge. Appears in no apparent distress. No ataxia noted. [place] Son [facility]gtjks6294-96-39 20:03:31 C/O headache, sore throat, chills, cough and bilateral ear pain since Saturday. [facility] Karen Cheung [facility]
[2024-11-21 08:18] LABS: Influenza A Ag Negative; Influenza B Ag Negative; SARS-CoV-2 Antigen Rapid Res Negative (Negative)
--- NOTE | 2024-11-21 08:28 | RAD REPORT ---
Procedure: Chest Single View HISTORY: Cough COMPARISON: none FINDINGS: The lungs appear clear of acute infiltrate. No significant pleural effusion noted. The heart is normal size. IMPRESSION: No acute abnormality is displayed.
--- NOTE | 2024-11-21 08:36 | ER ---
Nurse's Notes [facility] Name: Alessia Brewster Age: 54 yrs Sex: Female : 1970 Arrival Date: 11/21/2024 Time: 07:15 Bed 5 Private MD: Diagnosis: Cough;Acute sinusitis, unspecified Presentation: 11/21 07:25 Chief complaint: Patient states: Sore throat, B ear pains, LYMAN, and dry cough started ll1 Saturday. Coronavirus screen: Client denies travel out of the [place] in the last 14 days. congestion, cough unrelated to allergies, fatigue, headache, Client presents with at least one sign or symptom that may indicate coronavirus-19. Standard/surgical mask placed on the client. Ebola Screen: Patient denies travel to an Ebola-affected area in the 21 days before illness onset. Initial Sepsis Screen: Does the patient meet any 2 criteria? No. Patient's initial sepsis screen is negative. Does the patient have a suspected source of infection? No. Patient's initial sepsis screen is negative. Risk Assessment: Do you want to hurt yourself or someone else? Patient reports no desire to harm self or others. Onset of symptoms was November 17, 2024. 07:25 Method Of Arrival: Ambulatory ll1 07:25 Acuity: KINGA 3 ll1 Triage Assessment: 07:27 General: Appears uncomfortable, Behavior is calm, cooperative, appropriate for age, ll1 Reports chills for fatigue for. Pain: Complains of pain in throat Pain radiates to right ear and left ear Pain currently is 10 out of 10 on a pain scale. Quality of pain is described as aching. EENT: Reports pain when swallowing both ears. 07:28 Neuro: Reports headache weakness. Respiratory: Reports cough that is dry. GI: Reports ll1 nausea. Musculoskeletal: Reports body aches. 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 - Infectious Disease History:: Denies. - Social history:: Smoking status: Patient denies any tobacco usage or history of. - Family history:: not pertinent. - Hospitalizations: : No recent hospitalization is reported. Screenin:36 [facility] ED Fall Risk Assessment (Adult) History of falling in the last 3 months, cm10 including since admission No falls in past 3 months (0 pts) Confusion or Disorientation No (0 pts) Intoxicated or Sedated No (0 pts) Impaired Gait No (0 pts) Mobility Assist Device Used No (0 pt) Altered Elimination No (0 pt) Score/Fall Risk Level 0 - 2 = Low Risk Oriented to surroundings, Maintained a safe environment, Hourly rounding (assess needs \T\ fall precautionary measures) done. Abuse screen: Denies threats or abuse. Denies injuries from another. Nutritional screening: No deficits noted. Tuberculosis screening: No symptoms or risk factors identified. Assessment: 07:33 General: Appears uncomfortable, Behavior is calm, cooperative. Neuro: No deficits cm10 noted. Level of Consciousness is awake, alert, obeys commands, Oriented to person, place, time, situation, Appropriate for age. Respiratory: No deficits noted. Airway is patent Respiratory effort is even, unlabored, Respiratory pattern is regular, symmetrical. EENT: Throat is reddened. Musculoskeletal: No deficits noted. Range of motion: intact in all extremities. Vital Signs: 07:25 Weight 95.25 kg; Height 5 ft. 6 in. ; Pain 10/10; ll1 07:33 BP 140 / 75; Pulse 83; Resp 17; Temp 98.8(O); Pulse Ox 97% ; cm10 08:30 BP 131 / 87; Pulse 79; Resp 16; Pulse Ox 99% on R/A; cm10 07:25 Body Mass Index 33.89 (95.25 kg, 167.64 cm) ll1 07:25 Pain Scale: Adult ll1 ED Course: 07:18 Patient arrived in ED. ts1 07:18 Arm band placed on Patient placed in an exam room, on a stretcher. ll1 07:19 Jimenez De La Torre MD is Attending Physician. rn 07:20 Angelic Gibbons, ESTEFANÍA is Primary Nurse. cm10 07:27 Triage completed. ll1 07:33 Group A Streptococcus Rapid Sent. cm10 07:33 COVID-19 Ag + Flu A+B Ag Sent. cm10 07:33 COVID swab sent to lab. Strep swab sent to lab. cm10 07:36 Patient has correct armband on for positive identification. Bed in low position. Call cm10 light in reach. Provided Education on: ER process and procedures. 08:02 XRAY Chest (1 view) In Process Unspecified. EDMS 08:36 Patient did not have IV access during this emergency room visit. cm10 08:37 No provider procedures requiring assistance completed. cm10 Administered Medications: No medications were administered Medication: 07:36 VIS not applicable for this client. cm10 Outcome: 08:35 Discharge ordered by . rn 08:36 Discharged to home ambulatory, cm10 08:36 Condition: good 08:36 Discharge instructions given to patient, Instructed on discharge instructions, follow up and referral plans. medication usage, Demonstrated understanding of instructions, follow-up care, medications, Prescriptions given X 1, 08:37 Patient left the ED. cm10 Signatures: Dispatcher [employer] EDMS Jimenez De La Torre MD MD rn Lewis, Lynsay, RN RN ll1 Thuy Corbin PAS PAS ts1 Angelic Gibbons RN RN cm10
--- NOTE | 2024-11-21 08:36 | EDPHYS ---
Physician Documentation [facility] Name: Alessia Brewster Age: 54 yrs Sex: Female : 1970 Arrival Date: 11/21/2024 Time: 07:15 Bed 5 Private MD: ED Physician Jimenez De La Torre HPI: 11/21 07:40 This 54 yrs old Female presents to ER via Ambulatory with complaints of Sore rn Throat, Painful Cough, Ear Pain. 07:40 Patient reports 2 days of cough, sore throat, runny nose, ear pain. Has had sick rn contacts at work, works at a [employer]. No shortness of breath. No chronic lung problems. No fever.. 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 - Infectious Disease History:: Denies. - Social history:: Smoking status: Patient denies any tobacco usage or history of. - Family history:: not pertinent. - Hospitalizations: : No recent hospitalization is reported. ROS: 07:40 Constitutional: Negative for fever, chills, and weight loss, ENT: Positive for rn congestion and sore throat Cardiovascular: Negative for chest pain, palpitations, and edema, Respiratory: Positive for cough, negative for shortness of breath Abdomen/GI: Negative for abdominal pain, nausea, vomiting, diarrhea, and constipation, Exam: 07:40 Constitutional: This is a well developed, well nourished patient who is awake, alert, rn and in no acute distress. Head/Face: Normocephalic, atraumatic. ENT: Clear nasal drainage, mild pharyngeal erythema. Normal bilateral TM without foreign body or perforation. No stridor. Neck: Tender anterior cervical lymphadenopathy present. No meningismus. Cardiovascular: Regular rate and rhythm. No pulse deficits. Respiratory: Speaking full sentences, unlabored. No increased work of breathing, no retractions or nasal flaring. Vital Signs: 07:25 Weight 95.25 kg; Height 5 ft. 6 in. ; Pain 10/10; ll1 07:33 BP 140 / 75; Pulse 83; Resp 17; Temp 98.8(O); Pulse Ox 97% ; cm10 08:30 BP 131 / 87; Pulse 79; Resp 16; Pulse Ox 99% on R/A; cm10 07:25 Body Mass Index 33.89 (95.25 kg, 167.64 cm) ll1 07:25 Pain Scale: Adult ll1 MDM: 07:19 Medical Screening Exam initiated rn 08:31 Independent interpretation of the following test(s) in the Emergency Department X-Ray: rn My interpretation is Chest x-ray images negative for pneumonia or pneumothorax per my interpretation. 08:34 Differential diagnosis: group A strep tonsillitis, influenza, laryngitis, pharyngitis, rn upper respiratory infection, viral syndrome pneumonia. Data reviewed: vital signs, nurses notes, lab test result(s), radiologic studies, plain films, and as a result, I will discharge patient. Counseling: I had a detailed discussion with the patient and/or guardian regarding the historical points, exam findings, and any diagnostic results supporting the discharge/admit diagnosis, lab results, radiology results, the need for outpatient follow up, to return to the emergency department if symptoms worsen or persist or if there are any questions or concerns that arise at home. Special discussion: I discussed with the patient/guardian in detail that at this point there is no indication for admission to the hospital. It is understood, however, that if the symptoms persist or worsen the patient needs to return immediately for re-evaluation. Based on the history and exam findings, there is no indication for further emergent testing or inpatient evaluation. I discussed with the patient/guardian the need to see the primary care provider for further evaluation of the symptoms. 11/21 07:20 Order name: COVID-19 Ag + Flu A+B Ag; Complete Time: 08:31 rn 11/21 07:20 Order name: Group A Streptococcus Rapid; Complete Time: 08:31 rn 11/21 07:56 Order name: Throat Culture EDMS 11/21 07:20 Order name: XRAY Chest (1 view); Complete Time: 08:31 rn Administered Medications: No medications were administered Disposition Summary: 11/21/24 08:35 Discharge Ordered Notes: Location: Home rn Problem: new rn Symptoms: have improved rn Condition: Stable rn Diagnosis - Cough rn - Acute sinusitis, unspecified rn Followup: rn - With: Private Physician - When: As needed - Reason: Recheck today's complaints, Re-evaluation by your physician Discharge Instructions: - Discharge Summary Sheet rn - Sinusitis, Adult rn - Cough, Adult rn Forms: - Medication Reconciliation Form rn - Antibiotic insole lip turner - Prescription Opioid Use rn - Patient Portal Instructions rn - Leadership Thank You Letter rn - Work release form eb Prescriptions: - Zithromax Z-Eugenio 250 mg Oral Tablet - take 1 tablet ORAL route as directed for 5 days Day 1 - take two (2) tablets rn one time. Day 2, 3, 4 , 5 take one (1) tablet once daily.; 6 tablet; Refills: 0, Product Selection Permitted Signatures: Dispatcher [employer] EDMS Jimenez De La Torre MD MD rn Lewis, Lynsay RN RN ll1 Angelic Gibbons RN RN cm10 Corrections: (The following items were deleted from the chart) 07:20 07:20 Chest Single View+[email or web address] ordered. EDMA EDMS
[2024-11-21 08:45] VITALS: TEMP 98.8
[2024-11-21 08:47] VITALS: BP 131/87; O2SAT 99
== END 2024-11-21 08:37 | disposition home or self-care (01) ==
LOC: ER 07:15
DX: R05.9 Cough, unspecified (principal); J01.90 Acute sinusitis, unspecified; E11.9 Type 2 diabetes mellitus without complications; I10 Essential (primary) hypertension; E03.9 Hypothyroidism, unspecified; Z11.52 Encounter for screening for COVID-19
CPT/HCPCS: 36415; 71045; 87070; 87428; 99283